=== PATIENT | female | born 2000 | race Caucasian/White ===

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

== ENCOUNTER 2019-04-06 05:05 | Inpatient (IN) | payer MEDICAID, SELFPAY ==
[2019-04-06 05:44] VITALS: BMI 40.1
[2019-04-06 06:29] LABS: Absolute Lymphocyte Count 1.74 X10^3/uL (0.83-4.51); Absolute Neutrophil Count 15.5 X10^3/uL (2.0-7.7); Basophil# 0.05 X10^3/uL; Basophil% 0.3 % (0-1); Eosinophil# 0.11 X10^3/uL; Eosinophils% 0.6 % (0-5); Hematocrit 36.3 % (37-47); Hemoglobin 12.3 g/dL (12.0-15.0); Lymphocyte # 1.74 X10^3/ul (4.0); Lymphocyte % 9.3 % (19-41); Mean Corp Hgb Conc 33.9 g/dL (32-36); Mean Corpuscular Hgb 30.8 pg (27.0-32.0); Mean Corpuscular Volume 90.8 fL (81-99); Monocyte# 1.22 X10^3/uL; Monocyte% 6.5 % (0-10); NRBC Flagged by Analyzer 0 % (0-5); Neutrophil # 15.48 X10^3/uL (2.7-7.7); Neutrophil % 82.7 % (47-70); Platelet Count 241 K/mm3 (150-450); RBC Distribution Width CV 12.6 % (11.6-14.6); RBC Distribution Width SD 41.4 fl (35.1-43.9); White Blood Count 18.7 K/mm3 (4.4-11.0)
[2019-04-06] MEDS: Lactated Ringers 1,000 ML 200 ML IV (11:30)
[2019-04-06] MEDS: Lactated Ringers 500 ML 999 ML IV (11:32)
[2019-04-06 11:51] LABS: Amphetamine Urine VISTA NEGATIVE (<1000 ng/mL); Barbiturate Urine VISTA NEGATIVE (< 200 ng/mL); Benzodiazepine Urine VISTA NEGATIVE (< 200 ng/mL); Cocaine Urine VISTA NEGATIVE (< 300 ng/mL); Ecstacy Urine VISTA NEGATIVE (< 500 ng/mL); Methadone Urine VISTA NEGATIVE (< 300 ng/mL); PCP Urine VISTA NEGATIVE (< 25 ng/mL); THC Urine VISTA POSITIVE (< 50 ng/mL); Vista UDS pH Range 6
[2019-04-06] MEDS: fentaNYL-bupivacaine (epidural) 100 ML BAG EPIDURAL (12:15)
--- NOTE | 2019-04-06 13:53 | PCM.HP.OB ---
History Date of Admission: 04/06/19 Final VALENCIA: 04/11/19 Final VALENCIA Source: US <20 weeks Gestational age: 39 Weeks and 2 Days History of this : This is a 18 year-old, 1 para 0 at 39 2/7-week gestation with EDC of 04/11/2019 presented in labor. Her labor progressed normally. She denied any gross vaginal bleeding or leaking fluid. She had good movement. History of asthma, history of and avoids use during the . Medical History: Medical History (Last Reviewed 02/15/18 @ 08:26 by Sulma Garza) Asthma J45.909 Neck pain M54.2 Allergies No Known Allergies Allergy (Verified 04/06/19 06:12) Home Medications: Home Medications Vits [Prenatabs FA] 1 tab PO DAILY 04/06/19 Smoking Status: Former smoker Alcohol: None Substance Use Type: Marijuana Number of Fetus(es): 1 History Past Pregnancies: Past Pregnancies Delivery Date Name GA/Weeks Outcome Route Weight Gender Labor Length Anesthesia Delivery Location Provider FOB Expected Delivery Method: Spontaneous Vaginal Review of Systems Constitutional: Denies: Chills, Fever Eyes: Reports: Pain - w/ ctxs. Denies: Blurred vision Cardiovascular: Reports: Edema - 1+ Respiratory: Denies: Cough Genitourinary: Denies: Dysuria, Frequency Skin: Denies: Rash Physical Exam General: Alert, Cooperative, - - moderate distress due to pain of ctxs Cardiovascular: Regular rate Lungs: Normal air movement Abdomen: Soft, Non-Distended, Gravid, Appropriate for Gestational Age Extremities:: Other - 2+ edema STUDIO COORDINATOR: Normal external genitalia Estimated gestational size: Appropriate for gestational size Presentation: Cephalic Assessment/Plan All Active Problems (Last Reviewed 02/15/18 @ 08:26 by Sulma Garza) Bronchitis (Acute) This is a 18 year-old, 1 para 0 at 39-2/7 weeks gestation with spontaneous labor. Estimated weight is less than 5000 g by equal exam, pelvis clinically adequate to expect vaginal delivery. May have epidural nitrous oxide or Nubain as needed and indicated for pain control. Continue expectant management for vaginal delivery.
[2019-04-06] MEDS: Oxytocin 30 units/NS 500 ml 30 UNITS/500 ML IV.SOLN 334 UNITS IV (17:01)
--- NOTE | 2019-04-06 18:43 | PCM.OPRPT ---
Vaginal Delivery Maternal Presentation: Active Labor Amniotic Membrane Rupture Type: Artificial Amniotic Fluid Description: Clear Final VALENCIA: 04/11/19 Gestational age: 39 Weeks and 2 Days Date of Procedure: 04/06/19 Pre-Operative Diagnosis: 9-week , maternal exhaustion, persistent L OT position Post-Operative Diagnosis: Pain Surgery/ Procedure Performed: Vacuum Assisted Vaginal Delivery Anesthesiologist: Mati Nava Type of Anesthesia: Epidural Description of Procedure: Patient arrived in active labor. She progressed to an anterior lip where she remained for a couple of hours. She got her epidural, then progressed to complete. She was pushing for approximately 2 hours and becoming very frustrated and tired. Position was our OT. At that point I discussed with the patient and her partner risk benefits and alternatives to a trial of vacuum assisted vaginal delivery. The vacuum was placed on the flexion point in the pressure was created to 550 mmHg. I pulled with 3 contractions, no pop offs. The head did not restituted to BRIANNA but restituted to OP. On the third contraction, as the head began to crown, the vacuum was removed and there were no pop offs. The head then delivered on the next maternal push OT. The remainder the delivered in less than 15 seconds with minimal traction maternal pushing efforts. The Pitocin infusion was initiated for active management of the third stage. The cord was clamped and cut after 1 minute. The infant was attended to by the waiting nursing staff. The placenta was delivered spontaneously and intact. The cervix and vagina were intact. The second-degree perineal laceration was repaired with 3-0 Vicryl suture in a running standard fashion. Sponge and needle counts were correct. A vaginal sweep was completed by me. Placental Delivery Description: Spontaneous Placenta Disposition: [facility] Cord Vessel Description: 3 Vessels Cord Gases drawn per routine: ABG, VBG Cord Entanglement: None Drain: Davis to straight drain Estimated Blood Loss: 500 Infant A gender: Male (1 minute): 8 - Hemanth (5 minute): 9 Episiotomy Description: None Laceration: 2nd degree - perineal Medications given after delivery: IV Pitocin Complications: None
[2019-04-06] MEDS: Naproxen 250 MG Tablet 500 MG PO (21:04)
[2019-04-06 23:34] VITALS: BP 131/72; PULSE 80; RESP 16; TEMP 36.8
[2019-04-07 04:15] VITALS: BP 129/78; PULSE 80; RESP 18; TEMP 36.6
[2019-04-07 05:46] LABS: Hematocrit 31.7 % (37-47); Hemoglobin 10.6 g/dL (12.0-15.0); Mean Corp Hgb Conc 33.4 g/dL (32-36); Mean Corpuscular Hgb 30.8 pg (27.0-32.0); Mean Corpuscular Volume 92.2 fL (81-99); Mean Platelet Vol. 10.6 fl (6.2-12.0); Platelet Count 201 K/mm3 (150-450); RBC Distribution Width CV 13.2 % (11.6-14.6); RBC Distribution Width SD 44.2 fl (35.1-43.9); Red Blood Count 3.44 M/mm3 (4.2-5.4); White Blood Count 22.4 K/mm3 (4.4-11.0)
[2019-04-07] MEDS: Acetaminophen 500 MG Tablet 1000 MG PO ×2 (05:46→16:02)
[2019-04-07 09:30] VITALS: BP 130/75; PULSE 85; RESP 16; TEMP 36.6; O2SAT 9
[2019-04-07] MEDS: Naproxen 250 MG Tablet 500 MG PO ×2 (10:02→19:47)
[2019-04-07 13:00] VITALS: BP 128/78; PULSE 68; RESP 16; TEMP 36.6
[2019-04-07 17:00] VITALS: BP 126/72; PULSE 68; RESP 18; TEMP 36.5
--- NOTE | 2019-04-07 18:23 | CASEMGMT ---
Social Work Referral Date: 04/07/19 Date of Assessment: 04/07/19 Reason for Consult: Mother of baby (MOB) with THC usage during , teen mom, resources. Informant: Dr. Galvan Personal Status Mentation: A&Ox3 Present during assessment: MOB, Father of baby (FOB), and Hx : 1 Hx Para: 0 Infant Gender: Male Infant Name: Hemanth Castañeda (1min): 8 (5min): 9 Care: Adequate Alleged father: Vidal castañeda Alleged father involved: Yes Length of Relationship with alleged father of baby: 4 years FOB Mental Health/AOD/Domestic Violence Hx: FOB smokes tobacco daily and is aware of risk for SIDS when smoking around . FOB stating to only smoke outside. FOB Employment: [employer] - Full-time Number of Children in the home: This if first infant for both MOB and FOB. Living Arrangements: MOB and FOB live with FOB's parents. Infant to live with MOB and FOB as well. Education: High School, working on business degree. Employment: Unemployed. Family Dynamics/Relationships: MOB reporting positive relationships and no concerns of safety (this question was asked while FOB was out of the room). MOB identifying family and FOB as supportive and able to assist with infant care if needed. Transportation: No concerns Substance Abuse Hx and Current Pattern of Use MOB stating to have a history of smoking tobacco but no current usage. MOB stating to have used THC during to assist with nausea. Patient stating that last usage was around 23-24 weeks . MOB denies any other THC use prior to stating that during was the first and only time that MOB used THC. MOB stating intention to no longer use THC. Exploring safety plan for infant if MOB would choose to use THC, MOB stating would not do around him, but I am not going to use. MOB with positive THC on 04/06/19. with pending meconium. Urine was not obtained for . MOB educated on Children services referral due to positive THC and what pending meconium means. MOB voicing understanding of why referral is to be made with possible follow up from children services. MOB denies any other substance abuse including alcohol, methamphetamine, cocaine, heroin, and prescription drugs. Mental Health Hx and Current Status MOB denies any mental health history. MOB stating to have lost MOB's mother 2 years ago from an overdose. MOB stating to be coping well with this and to have support from family and friends. MOB identifying MOB's sister as a big support. Items/Skills List for Infants Care Supplies: MOB stating to have all needed supplies, crib, car seat, infant clothing, etc. Bonding With Infant: MOB planning to breast feed and is stating to have a connection with . MOB stating that breast feeding is going well. Observed Maternal/Paternal Child interaction: MOB and FOB both holding infant during assessment. This social media campaign manager was able to witness MOB/FOB transferring to each others arms. Infant head and body supported appropriately. Emotional Assessment: MOB presenting with a positive affect. MOB engaged in conversation as seen through MOB asking questions and making eye contact with this social media campaign manager. Resources: MOB reporting to be connected with WIC and Job and Family services for insurance. Denies any other active resources. Provided MOB with information on Help Me Grow, Community resources, Safe Sleeping, depression. Was able to have conversation with MOB about depression signs/symptoms, MOB receptive to information. MOB declining [facility] referral but accepting of information and how to make a self referral. Telephone call to [facility] ([facility]), Yolande Escobedo. Referral provided. Yolande updated on positive THC tox as well as supportive factors for MOB. Yolande stating that case will be reviewed but no further actions are indicated at this time. Yolande aware that social work will contact [facility] with meconium results if positive for any substances. Intervention: CS referral. Pending meconium, will make further referrals as indicated. Plan: to discharge to home with FOB and MOB. BALDEMAR Germain
[2019-04-07 20:00] VITALS: BP 139/81; PULSE 84; RESP 16; TEMP 37
[2019-04-08 02:30] VITALS: BP 126/64; PULSE 57; RESP 18; TEMP 36.2
[2019-04-08] MEDS: Acetaminophen 500 MG Tablet 1000 MG PO ×2 (02:47→11:27)
[2019-04-08] MEDS: Naproxen 250 MG Tablet 500 MG PO (04:09)
--- NOTE | 2019-04-08 10:06 | PCM.PN.OB ---
Subjective: Pain well controlled, average lochia. - Physical Exam General: Alert, Cooperative, No apparent distress Vital Signs Temp Pulse Resp BP Pulse Ox 97.1 F L 57 L 18 126/64 H 9 04/08/19 02:30 04/08/19 02:30 04/08/19 02:30 04/08/19 02:30 04/07/19 09:30 Oxygen Delivery Method Room Air Weight: 96.5 kg Body Mass Index (BMI) 40.1 Intake and Output for Last 24 Hours 04/06/19 04/07/19 04/08/19 23:59 23:59 23:59 Intake Total 1992.34 / 34 Output Total 700 / 700 400 / 400 Balance 1293.34 / 1293.34 -400 / -400 Medical Necessity - Tobacco Use Smoking Status: Former smoker Assessment/Plan All Active Problems (Last Reviewed 02/15/18 @ 08:26 by Sulma Garza) Bronchitis (Acute) day #2 status post vaginal delivery. patient are doing well. I did see the patient yesterday and she was doing well and was to continue with routine care. I see that I did this entering a note on her chart yesterday, but she was doing well and was seen by me. Discharge home today with routine instructions and follow-up
--- NOTE | 2019-04-08 10:08 | DCINST_ITS ---
Discharge Diet: No Restrictions Discharge Activity: Return to Normal Activity, May not drive while taking narcotic pain medications., May Shower May resume sexual activity in: 4-6 weeks Additional Activity Instructions:: Nothing in the vagina for 4-6 weeks. You may return to work/school in 6 weeks. Call your doctor if your incision/area has: Continuous Slow Oozing, Sudden Increased Bleeding, Increased Pain/ Swelling, Increased Redness, Foul Smelling Discharge Additional Instructions: If you experience any of the following, contact your healthcare provider. * Bleeding that soaks a pad every hour for 2 hours * Fever 100.4 or higher * Unrelieved incision or abdominal pain * Swelling, redness, discharge or bleeding from your incision or episiotomy site * Your incision begins to separate * Problems urinating (including inability to urinate or burning while urinating). * Visual changes * Severe headache * Flu-like symptoms * Pain or redness in one of both of your breasts * Pain, warmth, tenderness or swelling in your legs, especially the calf area * Frequent nausea and vomiting * Symptoms of depression or anxiety If you experience any of the following, call 911 or go to the nearest Emergency Room. * Chest pain * Problems breathing * Seizure activity * Partial or complete paralysis of a body part, slurred speech, weakness or drooping of the face, or a sudden inability to walk or hold your balance Allergies/Adverse Reactions: Allergies No Known Allergies Allergy (Verified 04/06/19 06:12) Medications to take at Discharge Vits [Prenatabs FA ] 1 tab PO DAILY 04/06/19 Docusate Sodium [Colace] 100 mg PO BID PRN PRN #60 cap 04/08/19 Ibuprofen [Motrin] 800 mg PO TID PRN PRN #60 tab 04/08/19 The following prescriptions were given: Docusate Sodium [Colace] 100 mg PO BID PRN PRN #60 cap PRN Reason: Constipation Transmission Status: Pending to [id number] Ibuprofen [Motrin] 800 mg PO TID PRN PRN #60 tab PRN Reason: Pain Transmission Status: Pending to [id number] Please Follow Up With: Sheryl Burton MD - [phone] When: Call to make an appointment in our office in 1-2 in 6 weeks or as needed. Primary Care Physician: Maira Benitez MD [Primary Care Provider] - Test Results: Test results from this visit will be discussed in further detail at your follow- up appointment, if applicable.
[2019-04-08 10:25] VITALS: BP 119/76; PULSE 71; RESP 16; TEMP 36.7; O2SAT 98
== END 2019-04-08 12:40 | disposition home or self-care (01) | DRG 560 ==
PROVIDERS: Obstetrics & Gynecology; Admitting Provider Obstetrics & Gynecology; Family Provider Pediatrics; PCP Pediatrics; Visit Provider Obstetrics & Gynecology
DX: O75.81 Maternal exhaustion complicating labor and delivery (principal); O70.1 Second degree perineal laceration during delivery; O99.52 Diseases of the respiratory system complicating childbirth; J45.909 Unspecified asthma, uncomplicated; Z37.0 Single live birth; Z3A.39 39 weeks gestation of pregnancy; Z87.891 Personal history of nicotine dependence
CPT/HCPCS: 59025; 59050; 80307; 85025; 85027; 86850; 86900; 86901; 99218; J7120; G0378

== ENCOUNTER 2020-01-08 15:36 | Emergency (ER) | payer MEDICAID, SELFPAY ==
[2020-01-08 15:37] VITALS: BP 133/76; PULSE 86; RESP 17; TEMP 36.4; O2SAT 97; BMI 30.1
--- NOTE | 2020-01-08 15:53 | NURSING ---
NO OLD EKGS
--- NOTE | 2020-01-08 15:55 | EKG12_ITS ---
Test Reason : CP Blood Pressure : / mmHG Vent. Rate : 076 BPM Atrial Rate : 076 BPM P-R Int : 142 ms QRS Dur : 094 ms QT Int : 356 ms P-R-T Axes : 047 043 023 degrees QTc Int : 400 ms Normal sinus rhythm with sinus arrhythmia Normal ECG Confirmed by MELISSA DIAMOND ([id number]), brands editor EDDIE DÍAZ ([id number]) on 01/15/2020 8:12:36 AM Referred By: Confirmed By:MELISSA DIAMOND
--- NOTE | 2020-01-08 15:58 | ED.VIS.GEN ---
History of Present Illness Chief Complaint: Chest Pain Informant: Patient Onset: Yesterday Context: Gradual Onset Timing: Continuous Current Severity: Moderate Maximum Severity: Moderate Narrative: The patient is an otherwise healthy 19-year-old female that presents to the emergency department with left chest pain with inspiration. Patient was in her normal state of health. She states that she began to have a sharp, stabbing pain in her chest when she takes deep breath or when she coughs. She denies any fevers or chills. She denies any leg swelling. She has no history of pulmonary embolus. There is no family history of coagulopathies. She states she is otherwise been in her normal state of health. Prior similar symptoms: No Recent Illness/Hospitalization: No Past Medical History - Allergies and Home Meds Allergies/Adverse Reactions: Allergies No Known Allergies Allergy (Verified 01/08/20 15:36) Primary Care Physician: Maira Benitez MD [STAFF PHYSICIAN] - Prior records reviewed: Yes Past Medical History: None Surgical History: no surgical history Smoking Status: Never smoker Review of Systems General: Denies: Chills, Fever, Sweats Eyes: Denies: Visual changes - bilaterally, Diplopia ENT: Denies: Rhinorrhea, Sore throat Cardiovascular: Reports: Chest pain. Denies: Palpitations Respiratory: Denies: Dyspnea, Cough, Dyspnea on exertion Gastrointestinal: Denies: Abdominal pain, Nausea, Vomiting, Diarrhea, Melena, Hematochezia Genitourinary: Denies: Dysuria, Hematuria, Frequency Musculoskeletal: Denies: Back pain, Extremity Pain Skin: Denies: Rash, Wounds Neurological: Denies: Headache, Weakness, Numbness Physical Exam Vital Signs/Narrative: Vital Signs Temp Pulse Resp BP Pulse Ox 01/08/20 15:37 97.6 F L 86 17 133/76 H 97 Inital Vital Signs reviewed: Yes General: Well nourished, Well developed, No Acute Distress Head: Normocephalic, Atraumatic Eyes: Perrl, EOMI ENT: Moist mucous membranes, No rhinorrhea Neck: Supple, Nontender Cardiovascular: Regular rate, Regular rhythm, No murmurs Respiratory: No distress, CTA bilaterally, Chest nontender Abdomen: Soft, Nontender, Nondistended, Normal bowel sounds Back: Nontender, Normal Inspection Extremities: Nontender, No edema Skin: Normal color, No rash Neurological: Alert, Oriented x3, Cranial nerves II-XII grossly intact, Normal Strength, Normal Sensation Psychological: Normal affect, Normal Mood Diagnostic/Tx/Re-eval Clinical Impression(s) from Imaging Studies Chest X-Ray 01/08/20 16:20 IMPRESSION: Normal x-ray examination of the chest. Electronically Signed: Sami Sigala MD at 16:46 EDT , Service support , Abnormal Lab Results 01/08/20 01/08/20 01/08/20 16:05 16:05 16:05 WBC 9.7 RBC 4.56 Hgb 14.2 Hct 41.4 MCV 90.8 MCH 31.1 MCHC 34.3 RDW Std Deviation 40.1 RDW Coeff of Jamilah 12.1 Plt Count 255 MPV 10.3 Immature Gran % (Auto) 0.300 Neut % (Auto) 68.2 Lymph % (Auto) 20.4 [place] % (Auto) 8.8 Eos % (Auto) 2.0 Baso % (Auto) 0.3 Absolute Neuts (auto) 6.6 Absolute Lymphs (auto) 1.98 Nucleated RBC % 0 D-Dimer Quant (PE/DVT) < 0.27 L Sodium 138 Potassium 3.5 Chloride 103 Carbon Dioxide 30.0 Anion Gap 5 BUN 8 Creatinine 0.73 Estim Creat Clear Calc 92.76 Est GFR (MDRD) Af Amer 131 Est GFR (MDRD) Non-Af 108 BUN/Creatinine Ratio 11.0 Glucose 101 Calcium 9.0 Troponin I < 0.015 - Rhythm Strip Rhythm Strip: Sinus Rhythm Rate: 80 Ectopy: None - EKG Initial EKG Interpretation: Sinus Rhythm, No Acute Injury Pattern Prior: No Prior - Medical Decision Making Patient presents to the emergency department with approximately 24 hours of left-sided pleuritic chest pain. She is not hypoxic or tachypneic. However, given her symptoms EKG and d-dimer were obtained. D-dimer was negative. EKG was sinus rhythm without acute ischemia. Chest x-ray shows no evidence of volume overload, pneumothorax, other dangerous process. Patient was treated with Toradol and fluids and is feeling markedly improved. At this point, I do feel that she is safe for outpatient follow-up. I do suspect that her pain is likely secondary to pleurisy versus costochondritis. She is comfortable with this plan of care and will be discharged home. Impression 1. Pleurisy ED Disposition - Plan for ED Patient: Instructions: ED Chest Pain Pleurisy Prescriptions: Naproxen [Naprosyn] 500 mg PO BID PRN #20 tab Prescription Printed Referrals: Maira Benitez MD [STAFF PHYSICIAN] -
[2020-01-08] MEDS: 0.9% Normal Saline 1,000 ML 1000 ML IV (16:10)
[2020-01-08] MEDS: Ketorolac 15 MG/ML Vial IV (16:13)
--- NOTE | 2020-01-08 16:20 | RAD_ITS ---
STUDY: X-RAY CHEST REASON FOR EXAM: Female, 19 years old. Chest pain no trauma TECHNIQUE: PA and lateral COMPARISON: None. FINDINGS: The lungs are clear and expanded. There is no demonstrated pleural abnormality. Normal size heart. Normal mediastinum and carroll. Normal visualized pulmonary arteries. Normal visualized aortic arch and descending thoracic aorta. Normal visualized thoracic spine. Normal visualized ribs, clavicles, and shoulders. There is no demonstrated abnormality of the visualized soft tissue structures of the upper abdomen. RAD/Chest PA and Lateral IMPRESSION: Normal x-ray examination of the chest. Electronically Signed: Sami Sigala MD at 16:46 EDT , Service support ,
[2020-01-08 16:22] LABS: Absolute Lymphocyte Count 1.98 X10^3/uL (0.83-4.51); Absolute Neutrophil Count 6.6 X10^3/uL (2.0-7.7); Basophil# 0.03 X10^3/uL; Basophil% 0.3 % (0-1); Eosinophil# 0.19 X10^3/uL; Hematocrit 41.4 % (37-47); Hemoglobin 14.2 g/dL (12.0-15.0); Lymphocyte # 1.98 X10^3/ul (4.0); Lymphocyte % 20.4 % (19-41); Mean Corp Hgb Conc 34.3 g/dL (32-36); Mean Corpuscular Hgb 31.1 pg (27.0-32.0); Mean Corpuscular Volume 90.8 fL (81-99); Mean Platelet Vol. 10.3 fl (6.2-12.0); Monocyte# 0.85 X10^3/uL; Monocyte% 8.8 % (0-10); NRBC Flagged by Analyzer 0 % (0-5); Neutrophil # 6.61 X10^3/uL (2.7-7.7); Neutrophil % 68.2 % (47-70); Platelet Count 255 K/mm3 (150-450); RBC Distribution Width CV 12.1 % (11.6-14.6); RBC Distribution Width SD 40.1 fl (35.1-43.9); Red Blood Count 4.56 M/mm3 (4.2-5.4); White Blood Count 9.7 K/mm3 (4.4-11.0)
[2020-01-08 16:41] LABS: Anion Gap 5 (5-15); BUN 8 mg/dL (7-18); Chloride 103 mmol/L (98-107); Creatinine, Serum 0.73 mg/dL (0.55-1.02); EST Glomerular Filtration Rate 108 mL/min (>60); Est Glom Filt Rate - Afr Amer 131 mL/min (>60); Estimated Creatinine Clearance 92.76 ml/min; Glucose 101 mg/dL (74-106); Potassium 3.5 mmol/L (3.5-5.1); Sodium Level 138 mmol/L (136-145)
[2020-01-08 17:05] LABS: D-Dimer Quantitative (DVT/PE) < 0.27 FEU/ug/m (0.27-0.49)
== END 2020-01-08 17:37 | disposition home or self-care (01) ==
LOC: ED 16:32
PROVIDERS: Emergency Provider Emergency Medicine
DX: R09.1 Pleurisy (principal)
CPT/HCPCS: 71046; 80048; 84484; 85025; 85379; 93005; 96361; 96374; 99284; J7030; A4216

== ENCOUNTER 2021-03-26 12:45 | Inpatient (IN) | payer MEDICAID, SELFPAY ==
[2021-03-26] VITALS (19 sets, daily range): BP systolic 119–162; BP diastolic 71–87; PULSE 60–93; RESP 16; TEMP 35.6–36.4; O2SAT 82–99; BMI 39.2
[2021-03-26] MEDS: Lactated Ringers 1,000 ML 50 ML IV (12:55)
--- NOTE | 2021-03-26 13:00 | PCM.HP.OB ---
HPI - General General Date of Admission: 03/26/21 HPI Narrative WELLINGTON ELIZABETH, is a 20 F who presents at 37w6d with contractions that started this morning and increased in frequency. Maternal Data Information VALENCIA Calculator Estimated Delivery Date Method Current WG Current Estimate 04/10/21 LMP (Certain) 37w 6d PFSH PFSH Medical History (Updated 03/26/21 @ 16:34 by Alona Maciel CNM) Asthma Neck pain Home Medications vit,[id number] 1 tab PO DAILY 04/06/19 [History Last Taken 03/25/21 1300] Allergy/AdvReac Type Severity Reaction Status Date / Time dextromethorphan AdvReac Other Verified 03/26/21 13:15 [From Dimetapp Cold-Congestion] diphenhydramine AdvReac Other Verified 03/26/21 13:15 [From Dimetapp Cold-Congestion] guaifenesin AdvReac Other Verified 03/26/21 13:15 [From Dimetapp Cold-Congestion] phenylephrine AdvReac Other Verified 03/26/21 13:15 [From Dimetapp Cold-Congestion] pseudoephedrine AdvReac Other Verified 03/26/21 13:15 [From Dimetapp Cold-Congestion] Family History Mother Overdose Surgical History (Updated 03/26/21 @ 16:34 by Alona Maciel CNM) H/O wisdom tooth extraction Social History household members: family housing: house number of children: 1 current occupational status: student current occupation: homemaker/student- finishing up BA in business pets and animals: Yes Smoking Status: Former smoker second hand exposure: Yes alcohol intake: never substance use type: former substance user Date of last use: 2018- marijuana seatbelt use: always do you feel safe at home: Yes additional social history: Inna romero History 2 Elective abortions Hx Para 1 Spontaneous abortions Hx # Term Pregnancies Ectopic pregnancies Hx # Pregnancies Multiple births # of living children 1 Past Pregnancies Del. Date Name GA/Weeks Outcome Route Bth Weight Gen Labor Lgth Anesthesia Del Locatn Provider FOB 04/06/19 Hemanth 39 live - full term vacuum 7lbs 7oz Male epidural H RR Mamadou Delivery Date: 04/06/19 VAVD- maternal exhaustion persistent L OT position; 2nd degree laceration Sulma Alberts Vital Signs Vital Signs Vital Signs: 03/26/21 12:50 03/26/21 13:01 03/26/21 13:02 Pulse Rate 63 72 70 Blood Pressure 119/80 BP Systolic 119 BP Diastolic 80 Pulse Ox 98 98 03/26/21 13:03 03/26/21 14:05 Pulse Rate 62 Blood Pressure 143/87 H BP Systolic 143 BP Diastolic 87 Pulse Ox 82 Weight Weight: 207 lb 7.28 oz Body Mass Index (BMI) 39.2 Physical Exam Narrative /-1 IBOW Const alert and oriented x3 HEENT normocephalic Labs Labs Labs: Blood Type O POSITIVE Antibody Screen NEGATIVE Hct 37.4 % (37-47) Hgb 12.6 g/dL (12.0-15.0) Rhogam given: No GBS negative RPR non reactive HIV negative HBsAG negative HepC negative urine tox screen positive marijuana on 03/13/21 GBS negative 1hr GCT negative Rubella immune Assessment & Plan (1) Active labor at term: (2) Marijuana use: (3) History of vacuum extraction assisted delivery: PLAN: 1) Admit to labor and delivery 2) Routine labs, covid screening 3) continuous EFM 4) Would like unmedicated 5) GBS negative 6) collaborative physician and notified of patient admission. Anticipate vaginal delivery soon.
[2021-03-26 13:19] LABS: Absolute Lymphocyte Count 1.58 X10^3/uL (0.83-4.51); Absolute Neutrophil Count 10.4 X10^3/uL (2.0-7.7); Basophil# 0.03 X10^3/uL; Basophil% 0.2 % (0-1); Eosinophil# 0.11 X10^3/uL; Eosinophils% 0.8 % (0-5); Hematocrit 37.4 % (37-47); Hemoglobin 12.6 g/dL (12.0-15.0); Lymphocyte # 1.58 X10^3/ul (0.83-4.51); Lymphocyte % 11.6 % (19-41); Mean Corp Hgb Conc 33.7 g/dL (32-36); Mean Corpuscular Hgb 30.9 pg (27.0-32.0); Mean Corpuscular Volume 91.7 fL (81-99); Mean Platelet Vol. 10.1 fl (6.2-12.0); Monocyte# 1.37 X10^3/uL; Monocyte% 10.1 % (0-10); NRBC Flagged by Analyzer 0 % (0-5); Neutrophil # 10.44 X10^3/uL (2.7-7.7); Neutrophil % 76.9 % (47-70); Platelet Count 331 K/mm3 (150-450); RBC Distribution Width CV 12.4 % (11.6-14.6); RBC Distribution Width SD 41.3 fl (35.1-43.9); Red Blood Count 4.08 M/mm3 (4.2-5.4); White Blood Count 13.6 K/mm3 (4.4-11.0)
[2021-03-26] MEDS: Oxytocin 30 units/NS 500 ml 30 UNITS/500 ML IV.SOLN 334 UNITS IV (13:57)
--- NOTE | 2021-03-26 14:31 | EX.PCM.OBRPT ---
Maternal Data Information VALENCIA Calculator Estimated Delivery Date Method Current WG Current Estimate 04/10/21 LMP (Certain) 37w 6d Vaginal Delivery Maternal Presentation Maternal Presentation: Active Labor Operative Information Date of Procedure: 03/26/21 Pre-Operative Diagnosis: Active labor at term Post-Operative Diagnosis: Surgery / Procedure Performed: Spontaneous Vaginal Delivery Type of Anesthesia: Local with 1% Lidocaine Estimated Blood Loss: 350 ml Time of Delivery: 13:56 Findings Description of Procedure: Progressed to complete with strong urge to push, unmedicated. of viable female over first degree perineal laceration and left labial laceration. Infant head delivered with body immediately forthcoming, CANx1, delivered through. placed on maternal abdomen, strong cry. Mouth and nares suctioned for secretion. Pitocin started for active 3rd stage management. Placenta delivered intact via liv, 3 vessel cord. Perineum inspected and revealed first degree perineal laceration and left labial laceration, repaired with lidocaine and 3.0vicryl rapide. Vaginal sweep completed, sponge and instrument count correct. Mom and baby stable, family bonding well. notified of delivery. Presentation: Vertex Amniotic Membrane Rupture Type: Artificial Amniotic Fluid Description: Clear Placental Delivery Description: Spontaneous Placenta Disposition: [facility] Cord Vessel Description: 3 Vessels Cord Entanglement: Around neck x 1, loose Nuchal Cord Compression: Without compression A Gender: Female Delayed Cord Clamping: Yes Post Vaginal Delivery Medications Given After Delivery: IV Pitocin Episiotomy Description: None Laceration: Perineal Extension/lac and 1st degree (left labial) Complication Complications: None
[2021-03-26] MEDS: Benzocaine/Lanolin/Aloe Vera 1 SPRAY EACH TOPICAL (15:57)
[2021-03-26] MEDS: Ibuprofen 600 MG Tablet PO (15:58)
[2021-03-26 17:01] LABS: Amphetamine Urine VISTA NEGATIVE (<1000 ng/mL); Barbiturate Urine VISTA NEGATIVE (< 200 ng/mL); Benzodiazepine Urine VISTA NEGATIVE (< 200 ng/mL); Cocaine Urine VISTA NEGATIVE (< 300 ng/mL); Ecstacy Urine VISTA NEGATIVE (< 500 ng/mL); Methadone Urine VISTA NEGATIVE (< 300 ng/mL); PCP Urine VISTA NEGATIVE (< 25 ng/mL); THC Urine VISTA POSITIVE (< 50 ng/mL); Vista UDS pH Range 7
[2021-03-26] MEDS: Acetaminophen 500 MG Tablet PO (19:38)
[2021-03-27 00:10] VITALS: BP 128/80; PULSE 71; RESP 16; TEMP 36.2; O2SAT 97
[2021-03-27] MEDS: Ibuprofen 600 MG Tablet PO (00:35)
[2021-03-27 04:30] VITALS: BP 112/60; PULSE 74; RESP 16; TEMP 36.4; O2SAT 97
[2021-03-27] MEDS: Acetaminophen 500 MG Tablet PO (06:23)
[2021-03-27 06:24] LABS: Hemoglobin 12.3 g/dL (12.0-15.0); Mean Corp Hgb Conc 33.2 g/dL (32-36); Mean Corpuscular Hgb 31.1 pg (27.0-32.0); Mean Corpuscular Volume 93.4 fL (81-99); Mean Platelet Vol. 9.9 fl (6.2-12.0); Platelet Count 343 K/mm3 (150-450); RBC Distribution Width CV 12.7 % (11.6-14.6); RBC Distribution Width SD 43.5 fl (35.1-43.9); Red Blood Count 3.96 M/mm3 (4.2-5.4); White Blood Count 22.4 K/mm3 (4.4-11.0)
--- NOTE | 2021-03-27 06:42 | PN.OBGYN_ITS ---
Subjective Subjective Doing well per patient and nursing staff. Ambulating and taking PO without difficulty. Voiding and passing flatus. Pain controlled. , services for assistance. Denies headache, visual changes, chest pain, shortness of breath, leg pain or increased bleeding. Lochia normal. Objective Data Objective Data Vital Signs: Vital Signs Temp Pulse Resp BP Pulse Ox 97.6 F L 74 16 112/60 97 03/27/21 04:30 03/27/21 04:30 03/27/21 04:30 03/27/21 04:30 03/27/21 04:30 Oxygen Delivery Method Room Air Weight: 207 lb 7.28 oz Body Mass Index (BMI) 39.2 Intake & Output: Intake and Output for Last 24 Hours 03/25/21 03/26/21 03/27/21 23:59 23:59 23:59 Intake Total 554.17 / 554.17 Output Total 450 / 450 Balance 104.17 / 104.17 Lab / Micro Data Result Diagrams: 03/27/21 06:18 Labs: Laboratory Results - last 24 hr 03/26/21 12:55: WBC 13.6 H, RBC 4.08 L, Hgb 12.6, Hct 37.4, MCV 91.7, MCH 30.9, MCHC 33.7, RDW Std Deviation 41.3, RDW Coeff of Jamilah 12.4, Plt Count 331, MPV 10.1, Immature Gran % (Auto) 0.400, Neut % (Auto) 76.9 H, Lymph % (Auto) 11.6 L, [place] % (Auto) 10.1 H, Eos % (Auto) 0.8, Baso % (Auto) 0.2, Absolute Neuts (auto) 10.4 H, Absolute Lymphs (auto) 1.58, Nucleated RBC % 0 03/26/21 12:55: Blood Type O POSITIVE, Antibody Screen NEGATIVE 03/26/21 16:00: Urine Opiates Screen NEGATIVE, Urine Methadone Screen NEGATIVE, Ur Barbiturates Screen NEGATIVE, Ur Phencyclidine Scrn NEGATIVE, Ur Amphetamines Screen NEGATIVE, U Methamphetamin-MDMA NEGATIVE, U Benzodiazepines Scrn NEGATIVE, Urine Cocaine Screen NEGATIVE, U Cannabinoids Screen POSITIVE H, Ur Drug Screen Comment 03/27/21 06:18: WBC 22.4 H, RBC 3.96 L, Hgb 12.3, Hct 37.0, MCV 93.4, MCH 31.1, MCHC 33.2, RDW Std Deviation 43.5, RDW Coeff of Jamilah 12.7, Plt Count 343, MPV 9.9 Micro: Microbiology 03/26/21 12:55 Nasal Secretion SARS-CoV-2 Antigen (Rapid) - Final ROS Constitutional Constitutional: Reports systems reviewed and no addt'l complaints, except as documented; Denies headache(s) Eyes Eyes: Denies acute decrease in peripheral vision, blurry vision or change in vision ENT HEENT: Reports systems reviewed and no addt'l complaints, except as documented Cardiovascular Cardiovascular: Denies chest pain or dizziness Respiratory/Chest Respiratory/Chest: Denies cough, dyspnea, dyspnea on exertion, shortness of breath at rest or shortness of breath with exertion Gastrointestinal Gastrointestinal: Denies abdominal pain, diarrhea, nausea or vomiting Genitourinary Genitourinary: Denies abdominal discomfort Musculoskeletal Musculoskeletal: Denies limited range of motion Integumentary Integumentary: Reports systems reviewed and no addt'l complaints, except as documented Neurologic Neurologic: Reports systems reviewed and no addt'l complaints, except as documented Psychiatric Psychiatric: Reports systems reviewed and no addt'l complaints, except as documented Endocrine Endocrinology: Reports systems reviewed and no addt'l complaints, except as documented Hematologic/Lymphatic Hematologic/Lymphatic: Reports systems reviewed and no addt'l complaints, except as documented Allergic/Immunologic Allergic/Immunologic: Reports systems reviewed and no addt'l complaints, except as documented Physical Exam Const alert and oriented x3 General Appearance: cooperative Orientation / Consciousness: awake, oriented to person, oriented to place and oriented to time Exam Limitations: no limitations HEENT normocephalic Head and Scalp: normal to inspection, normocephalic and atraumatic Face and Sinus: normal facial exam Eyes General Eye: normal appearance of both eyes Neck full ROM Chest Chest: symmetrical chest wall rise Resp normal respiratory effort and normal air movement Auscultation: clear to auscultation bilaterally Cardio regular rate, regular rhythm, S1 normal heart sound, S2 normal heart sound, no murmurs, no rub, no gallops and no clicks GI normal to inspection, nondistended, normoactive bowel sounds and non-tender GI Narrative: fundus firm 2 below U appearance of the vagina normal Bladder / Kidney Exam: no CVA tenderness Back/Spine normal ROM Extremity normal to inspection and full ROM Skin no rashes or lesions noted Neuro oriented x3, CN's II-XII intact bilaterally and moves all extremities Sensorium / Orientation: awake, alert and oriented to person Motor Exam: clonus absent Deep Tendon Reflexes: Rt Patellar (L4): 2+ and Lt Patellar (L4): 2+ Assessment & Plan (1) Vaginal delivery: PLAN: 1) Routine PP and instructions 2) VS stable 3) Follow up in 2 weeks and 6 weeks 4) D/C home
[2021-03-27 08:00] VITALS: BP 114/74; PULSE 62; RESP 16; TEMP 36.2
--- NOTE | 2021-03-27 08:41 | DS.PCM_ITS ---
Providers Date of Admission: 03/26/21 Primary Care Physician: No Primary Care Phys Reason For Visit: VAGINAL DELIVERY Diagnosis Discharge Diagnosis (1) Vaginal delivery: Status: Acute Code(s): O80 - Encounter for full-term uncomplicated delivery Medications at Discharge Home Medications vit,[id number] 1 tab PO DAILY 04/06/19 acetaminophen 1,000 mg PO Q6H PRN PRN #0 tab 03/27/21 ibuprofen 600 mg PO Q6H PRN PRN #30 tab 03/27/21 Weight / BMI Weight Weight: 207 lb 7.28 oz Body Mass Index (BMI) 39.2 ABG / Lab / Microbiology Data Result Diagrams: 03/27/21 06:18 Laboratory: Laboratory Results - last 24 hr 03/26/21 12:55: WBC 13.6 H, RBC 4.08 L, Hgb 12.6, Hct 37.4, MCV 91.7, MCH 30.9, MCHC 33.7, RDW Std Deviation 41.3, RDW Coeff of Jamilah 12.4, Plt Count 331, MPV 10.1, Immature Gran % (Auto) 0.400, Neut % (Auto) 76.9 H, Lymph % (Auto) 11.6 L, [place] % (Auto) 10.1 H, Eos % (Auto) 0.8, Baso % (Auto) 0.2, Absolute Neuts (auto) 10.4 H, Absolute Lymphs (auto) 1.58, Nucleated RBC % 0 03/26/21 12:55: Blood Type O POSITIVE, Antibody Screen NEGATIVE 03/26/21 16:00: Urine Opiates Screen NEGATIVE, Urine Methadone Screen NEGATIVE, Ur Barbiturates Screen NEGATIVE, Ur Phencyclidine Scrn NEGATIVE, Ur Amphetamines Screen NEGATIVE, U Methamphetamin-MDMA NEGATIVE, U Benzodiazepines Scrn NEGATIVE, Urine Cocaine Screen NEGATIVE, U Cannabinoids Screen POSITIVE H, Ur Drug Screen Comment 03/27/21 06:18: WBC 22.4 H, RBC 3.96 L, Hgb 12.3, Hct 37.0, MCV 93.4, MCH 31.1, MCHC 33.2, RDW Std Deviation 43.5, RDW Coeff of Jamilah 12.7, Plt Count 343, MPV 9.9 Microbiology: Microbiology 03/26/21 12:55 Nasal Secretion SARS-CoV-2 Antigen (Rapid) - Final Meaningful Use Info Meaningful Use Diagnoses (Choose all that apply): None applicable Discharge Plan Admission Admit Date/Time: 03/26/21 12:45 Primary Reason for Your Visit: Active labor, vaginal delivery Attending Provider: Alona Maciel Primary Care Provider: Care Physician,No Primary Instructions Patient Instructions: After a Vaginal , Discharge Orders/Prescriptions Prescriptions: New acetaminophen 500 mg Tablet 1,000 mg PO Q6H PRN PRN (Reason: Pain 1-10 Or Fever) Qty: 0 RF: 0 ibuprofen 600 mg Tablet 600 mg PO Q6H PRN PRN (Reason: Pain Score 1-3) Qty: 30 RF: 0 Continued vit,[id number] 1 TABLET tablet 1 tab PO DAILY RF: 0 Referrals / Follow Up: Care Physician,No Primary [Primary Care Provider] - (2 weeks virtual and 6 weeks in office) Alona Maciel CNM [Certified Nurse Complaint Analyst] - Disposition Disposition (needs filled in before D/C Order can be placed): Home, Self Care
[2021-03-27 12:00] VITALS: BP 132/84; PULSE 93; RESP 16; TEMP 36.1
--- NOTE | 2021-03-27 14:00 | CASEMGMT ---
Social Work Assessment Labor and Delivery Unit Patient Address: [address] [place] [address] [address], [place] [id number] Phone number: [phone] Date of Referral: 03/26/2021 Time of Referral: 1609; 1754 Referred By: Alona Maciel CNM; Dr. Johns Date of Intervention: 03/27/2021 Time of Intervention: 1400 Reason for Referral: Maternal history of THC use, positive upon admission. History obtained from: Medical records and mother of baby (PJ) Ilsa Azar Household composition: MOB reports to live with the FOB and reports home situation is safe and adequate. Also in the home is their older child. Patient's parent/guardian status: PJ is a 20-year-old single female, involved with the father of baby (FOB) Vidal Castañeda (born 02/26/1996) for the last 7 years. PJ denies any safety concerns or domestic violence history in this relationship. MOB and FOB now share 2 children together. Minor children include: Hemanth Castañeda, born 04/06/2019 and baby girl Sneha Castañeda, born 03/26/2021. Medical History: PJ is 2, para 1 now 2 after delivering Sneha care started in the 8-week and regular with the exception of an 8-week care Between 8 and 16 weeks. Delivery occurred at 37 weeks gestation. Infant weighed 6 pounds 10 ounces at . Apgars 9 and 9 at 1 and 5 minutes of life. Educational Status: PJ is finishing a bachelor's in business via an online school program. No issues with reading, writing, or learning. Financial Status: MONY works as a romero. No reported issues with finances. Supplies: PJ reports to have necessary supplies including a bassinet, crib, pack and play, car seat, clothing, diapers, and wipes. MOB is breast-feeding the baby. Childcare/Caregiver(s): MOB will be the primary caregiver along with help from the FOB. Transportation: No reported issues. Programs/Agencies Involved: PJ is active with job and family services for medical. Reports adequate. Declines referral to help me grow. Reports plan for Dr. Hill is the pediatric doctor to follow-up. Children Services/Legal Issues: MOB denies legal issues or child services involvement, past or present.. Behavioral Health Issues: Mental Health History: MOB denies any mental health history including depression, anxiety, or . Substance Use History: MOB endorses history of marijuana use related to nausea. MOB reports the use was a couple of months ago. Reviewed with the MOB her positive drug screen at delivery, and offered MOB opportunity to discuss last use. MOB maintained her use was a few months ago, and believe that due to being overweight is uncertain as to how long marijuana would stay in the MOB system. MOB denies any other illicit substance use history. No reports of any alcohol use during . Family History: Medical record indicates that the MOB mother has a history of drug overdose and subsequent . Drug Screens: MOB with positive drug screens for marijuana on 09/02/2020, 03/13/2021, and 03/26/2021. No urine collected on baby per meconium is pending. Family/Social Stressors: No identified stressors. Support Systems: MOB endorses the FOB, MOB father, [id number], and the sister as good supports. Depression/Shaken Baby/Safe Sleeping: Information provided on shaken baby prevention, safe sleeping, and mood and anxiety disorders. ASSESSMENT: Met with the MOB in her room, introducing to self and social work role. MOB holding the baby during social work visit, appropriate and how handled the baby. There have been no voiced concerns regarding parent-child interactions or bonding. MOB reports to have adequate housing, transportation and supplies for the baby. Denies any mental health concerns. [place] depression screen was completed with the MOB and a score was 1. MOB does endorse history of marijuana use in , but reports its been a couple of months ago. Denies any recent usage even in light of positive drug screen at delivery. Educated MOB to the need to alert children services to infant exposure to substances in utero. Let MOB know that uncertain whether case will be opened at this time, but that if meconium comes back positive a case will be open for investigation and something will be following up. Offered MOB opportunity to ask questions as needed. MOB declines any referrals such as helping grow. Did accept resource information for [facility] and a packet on mood and anxiety disorders. Safe Plan of Care for infant related to substance use: MOB maintains that has not been using marijuana in some time. Reports plan for continued abstinence. Educated MOB to recommendation to not use any substances, especially while breast-feeding. MOB expressed understanding. PLAN: MOB and will discharge home when ready. Resources provided for [facility] in the mood anxiety disorder packet. Will be calling [facility] children services due to infant exposure in utero. We will also monitor for meconium drug screen results. -ALBERT New, LANGUAGE TEACHER *This note was generated with [employer] dictation software. It may contain incorrect words, spelling, and punctuation that were not noted in review of the chart prior to signing*
--- NOTE | 2021-04-08 12:56 | CASEMGMT ---
Social Work Labor and Delivery Unit Called [facility] children services at [phone]. Spoke with Daniele in the intake department. 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 No urine has been obtained, but meconium is pending. Brief maternal history is provided. Daniele will write out the referral and review supervisor electron tube processing for determination on referral outcome. Children services would like to be called back should meconium come back positive. Daniele aware that mom and baby are slated for discharge today. Monitor for meconium drug screen results. Otherwise no other referrals requested or indicated. -ANASTASIIA New, PADDER CUSHION *This note was generated with SpinTheCam dictation software. It may contain incorrect words, spelling, and punctuation that were not noted in review of the chart prior to signing*
--- NOTE | 2021-04-08 13:03 | CASEMGMT ---
Social Work Labor and Delivery Unit Meconium drug screen results are back and positive for marijuana. Called the [facility] children services at [phone]. Spoke with Deana in the intake department of results. Deana reports she will get the new information documented and given to lasting room supervisor. Called the mother of baby, Ilsa Azar [phone] and updated to results. The baby had indicated prior to discharge that would like to know results are back. Answered questions the mother of baby had. No other services requested or indicated. -ANASTASIIA New, BENCH ASSEMBLER OPERATOR *This note was generated with Broccol-e-gamesation software. It may contain incorrect words, spelling, and punctuation that were not noted in review of the chart prior to signing*
== END 2021-03-27 15:05 | disposition home or self-care (01) | DRG 560 ==
LOC: WPOUT 12:48 → WP 13:12
PROVIDERS: Admitting Provider Advanced Practice Midwife; Referring Provider Advanced Practice Midwife; Visit Provider Advanced Practice Midwife
DX: O70.0 First degree perineal laceration during delivery (principal); Z87.891 Personal history of nicotine dependence; O69.81X0 Labor and delivery complicated by cord around neck, without compression, not applicable or unspecified; F12.90 Cannabis use, unspecified, uncomplicated; O99.324 Drug use complicating childbirth; Z3A.37 37 weeks gestation of pregnancy; Z37.0 Single live birth
CPT/HCPCS: 59025; 59050; 80307; 85025; 85027; 86850; 86900; 86901; 87426; 99218; J7120; G0378

== ENCOUNTER 2021-03-31 15:06 | Emergency (ER) | payer MEDICAID, SELFPAY ==
[2021-03-31 15:06] VITALS: BP 121/77; PULSE 66; RESP 16; TEMP 36.4; O2SAT 99; BMI 35.9
--- NOTE | 2021-03-31 15:11 | EKG12_ITS ---
Test Reason : CP Blood Pressure : / mmHG Vent. Rate : 059 BPM Atrial Rate : 059 BPM P-R Int : 140 ms QRS Dur : 082 ms QT Int : 380 ms P-R-T Axes : 066 049 018 degrees QTc Int : 376 ms Sinus bradycardia with sinus arrhythmia Otherwise normal ECG Confirmed by JORGE NIELSON, MATIAS ([id number]), fashion editor EDDIE DÍAZ ([id number]) on 04/01/2021 1:24:37 PM Referred By: MR Confirmed By:MATIAS PATEL MD
[2021-03-31 15:38] VITALS: O2SAT 98
[2021-03-31 15:41] LABS: Absolute Lymphocyte Count 2.15 X10^3/uL (0.83-4.51); Absolute Neutrophil Count 8.6 X10^3/uL (2.0-7.7); Basophil# 0.06 X10^3/uL; Basophil% 0.5 % (0-1); Eosinophil# 0.41 X10^3/uL; Eosinophils% 3.3 % (0-5); Hematocrit 36.7 % (37-47); Hemoglobin 12.1 g/dL (12.0-15.0); Lymphocyte # 2.15 X10^3/ul (0.83-4.51); Lymphocyte % 17.5 % (19-41); Mean Corpuscular Hgb 30.9 pg (27.0-32.0); Mean Corpuscular Volume 93.9 fL (81-99); Mean Platelet Vol. 9.5 fl (6.2-12.0); Monocyte# 1.04 X10^3/uL; Monocyte% 8.4 % (0-10); NRBC Flagged by Analyzer 0 % (0-5); Neutrophil # 8.59 X10^3/uL (2.7-7.7); Neutrophil % 69.7 % (47-70); Platelet Count 413 K/mm3 (150-450); RBC Distribution Width CV 12.7 % (11.6-14.6); RBC Distribution Width SD 43.8 fl (35.1-43.9); Red Blood Count 3.91 M/mm3 (4.2-5.4); White Blood Count 12.3 K/mm3 (4.4-11.0)
--- NOTE | 2021-03-31 15:42 | RAD_ITS ---
STUDY: X-RAY CHEST REASON FOR EXAM: Female, 20 years old. NTERMITTENT CHEST PAIN SINCE YESTERDAY, VAGINAL DELIVERY 03/26/21. SENT BY SALES DEVELOPMENT COORDINATOR TECHNIQUE: Single AP portable view of the chest. COMPARISON: JANUARY 08, 2020 FINDINGS: Mild bilateral lower lobe pulmonary edema is present. The remaining lung morris are clear. There is no demonstrated pleural abnormality. Normal size heart. Normal mediastinum and carroll. Normal visualized pulmonary arteries. Normal visualized aortic arch and descending thoracic aorta. Normal visualized thoracic spine. Normal visualized ribs, clavicles, and shoulders. There is no demonstrated abnormality of the visualized soft tissue structures of the upper abdomen. RAD/Chest 1 View (Portable) IMPRESSION: Mild bilateral lower lobe pulmonary edema Electronically Signed: Xander Saxena MD at 16:58 EDT , Service support ,
[2021-03-31 15:57] LABS: Anion Gap 6 (5-15); BUN 10 mg/dL (7-18); BUN/Creat Ratio 15.2 RATIO (10-20); Calcium,Total 8.6 mg/dL (8.5-10.1); Chloride 110 mmol/L (98-107); Creatinine, Serum 0.66 mg/dL (0.55-1.02); EST Glomerular Filtration Rate 120 mL/min (>60); Est Glom Filt Rate - Afr Amer 145 mL/min (>60); Estimated Creatinine Clearance 101.75 ml/min; Glucose 91 mg/dL (74-106); Potassium 4.1 mmol/L (3.5-5.1); Sodium Level 142 mmol/L (136-145); Troponin-I HS 5 pg/mL (3.0-54.0)
--- NOTE | 2021-03-31 16:07 | EDS_ITS ---
HPI History of Present Illness Chief Complaint: Chest Pain Detail of Chief Complaint: Pain that started yesterday Informant: patient Onset/Context/Timing Onset: Yesterday Timing: Intermittent Quality: Positive for Sharp and Stabbing Narrative Narrative: Patient presents to the emergency department complaint of sharp chest pain between her breasts that started yesterday. Patient states the pain is intermittent. Patient states at times is worse with deep breath. Patient states that she had a vaginal delivery on March 26 and was instructed by her DEVOPS ENGINEER to come in and get evaluated for PE. Patient has no history of PE or DVT. She denies any shortness of breath. She denies any fever or recent illness. She denies any trauma to her chest otherwise. She is never had pain like this before. She denies any abdominal pain. Prior Similar Symptoms: No PFSH PFSH Medical History (Updated 03/31/21 @ 18:[address] Ngoc Zavala, ) Asthma Neck pain Home Medications vit,[id number] 1 tab PO DAILY 04/06/19 [History Last Taken 03/25/21 1300] acetaminophen 1,000 mg PO Q6H PRN PRN #0 tab 03/27/21 [Rx Last Taken Unknown] ibuprofen 600 mg PO Q6H PRN PRN #30 tab 03/27/21 [Rx Last Taken Unknown] Allergy/AdvReac Type Severity Reaction Status Date / Time dextromethorphan AdvReac Other Verified 03/31/21 15:09 [From Dimetapp Cold-Congestion] diphenhydramine AdvReac Other Verified 03/31/21 15:09 [From Dimetapp Cold-Congestion] guaifenesin AdvReac Other Verified 03/31/21 15:09 [From Dimetapp Cold-Congestion] phenylephrine AdvReac Other Verified 03/31/21 15:09 [From Dimetapp Cold-Congestion] pseudoephedrine AdvReac Other Verified 03/31/21 15:09 [From Dimetapp Cold-Congestion] Family History Mother Overdose Surgical History (Updated 03/26/21 @ 16:34 by Alona Maciel CNM) H/O wisdom tooth extraction Social History household members: family housing: house number of children: 1 current occupational status: student current occupation: homemaker/student- finishing up BA in business pets and animals: Yes Smoking Status: Former smoker second hand exposure: Yes alcohol intake: never substance use type: former substance user Date of last use: 2018- marijuana seatbelt use: always do you feel safe at home: Yes additional social history: Inna romero ROS ROS ED Review of Systems ROS Unobtainable: other Constitutional Constitutional ED: Reports lethargy; Denies chills, fever(s), sweats or weight loss Eyes Eyes: Denies blurry vision, change in vision or diplopia ENT ENT ED: Denies rhinorrhea or sore throat Cardiovascular Cardiovascular: Reports chest pain and racing heartbeat; Denies orthopnea Respiratory/Chest Respiratory/Chest: Reports dyspnea and dyspnea on exertion; Denies cough, orthopnea or sputum Gastrointestinal Gastrointestinal: Denies abdominal pain, diarrhea, nausea or vomiting Genitourinary Genitourinary ED: Denies dysuria, hematuria or urinary frequency Musculoskeletal Musculoskeletal: Denies arthralgias, back pain, myalgias or neck pain Integumentary Denies abscess, Abrasions or rash Neurologic Neurologic: Denies headache(s) or weakness Psychiatric Psychiatric: Denies anxiety, depression or suicidal thoughts Endocrine Endocrinology: Denies polydipsia, polyphagia or polyuria Hematologic/Lymphatic Hematologic/Lymphatic: Denies easy bleeding, easy bruising or lymphadenopathy Allergic/Immunologic Allergic/Immunologic ED: Denies mouth swelling, tongue swelling or urticaria EXAM Physical Exam Const Vital Signs: 03/31/21 15:06 03/31/21 15:38 03/31/21 16:23 Temperature 97.6 F L Temperature Source Temporal Pulse Rate 66 78 Respiratory Rate 16 15 Respiratory Effort Normal Non-Labored Blood Pressure 121/77 H Blood Pressure Mean 91 Pulse Ox 99 98 99 Oxygen Delivery Method Room Air Room Air 03/31/21 17:17 Temperature Temperature Source Pulse Rate 70 Respiratory Rate 16 Respiratory Effort Blood Pressure Blood Pressure Mean Pulse Ox 97 Oxygen Delivery Method Room Air Positive well nourished and well developed General Appearance ED: well developed and NAD HEENT Reports TM's clear and moist mucous membranes normocephalic and atraumatic; Negative for trauma or tenderness Tympanic Membrane ED: Yes TM's clear Eyes PERRL and EOMs intact bilaterally General Eye ED: Negative for pale conjunctiva or scleral icterus Neck no lymphadenopathy, supple and no JVD General: Negative for tenderness Chest Wall inspection of chest normal and palpation of chest normal Chest: Negative for tenderness Resp normal respiratory effort and clear to auscultation bilaterally Effort and Inspection: Negative for respiratory distress or pain with movement Auscultation: Negative for rhonchi, wheezes or diminished lung sounds Cardio regular rate, regular rhythm, S1 normal heart sound, S2 normal heart sound and no murmurs Peripheral Pulses: pulses 2+ throughout GI normal to inspection, nondistended, normoactive bowel sounds, soft to palpation, non-tender, non-distended and no masses Back/Spine no CVA tenderness and no thoracic nor lumbar tenderness Extremity normal to inspection General Extremety ED: Negative for edema General Extremity: Negative for edema Neuro oriented x3, CN's II-XII intact bilaterally, no sensory deficits noted and gait normal Sensorium / Orientation: awake, alert, oriented to person, oriented to place and oriented to time Motor Exam: strength 5/5 throughout and strength abnormal Psych mental status grossly normal Skin no rashes or lesions noted and no wounds MDM MDM MDM Narrative Medical decision making narrative: Etiology of patient's chest pain unclear. There is no evidence of PE on CT and her work-up in the department essentially unremarkable. Patient advised to use Tylenol for discomfort. She is to follow- up with her primary care physician in 3 to 5 days. She is to return if worseni ng pain, increasing shortness of breath, or condition should worsen anyway. Lab Data Attestation: I reviewed the patient's lab results. Lab results narrative: Labs: Laboratory Results - last 24 hr 03/31/21 03/31/21 03/31/21 15:20 15:20 15:20 WBC 12.3 H RBC 3.91 L Hgb 12.1 Hct 36.7 L MCV 93.9 MCH 30.9 MCHC 33.0 RDW Std Deviation 43.8 RDW Coeff of Jamilah 12.7 Plt Count 413 MPV 9.5 Immature Gran % (Auto) 0.600 Neut % (Auto) 69.7 Lymph % (Auto) 17.5 L [place] % (Auto) 8.4 Eos % (Auto) 3.3 Baso % (Auto) 0.5 Absolute Neuts (auto) 8.6 H Absolute Lymphs (auto) 2.15 Nucleated RBC % 0 D-Dimer Quant (PE/DVT) 0.51 H* Sodium 142 Potassium 4.1 Chloride 110 H Carbon Dioxide 26.0 Anion Gap 6 BUN 10 Creatinine 0.66 Estim Creat Clear Calc 101.75 Est GFR (MDRD) Af Amer 145 Est GFR (MDRD) Non-Af 120 BUN/Creatinine Ratio 15.2 Glucose 91 Calcium 8.6 Troponin I High Sens 5 Radiography Chest X-Ray - ED: 1 View Diagnostic Testing: Radiology Impression Chest X-Ray 03/31/21 15:42 IMPRESSION: Mild bilateral lower lobe pulmonary edema Electronically Signed: Xander Saxena MD at 16:58 EDT , Service support , Chest CTA 03/31/21 17:08 IMPRESSION: Normal CTA chest examination, without a demonstrated pulmonary embolism or arterial dissection. Electronically Signed: Xander Saxena MD at 18:22 EDT , Service support , 1 view chest x-ray obtained interpreted by myself as no acute disease process. Radiology felt there was mild bilateral lower lobe pulmonary edema. EKG Initial EKG: Attestation: I personally reviewed and interpreted this EKG as follows: Comments: Sinus rhythm with ventricular rate of 59 bpm with occasional PACs. Prior EKG tracings: available for review Prior: Unchanged Discharge Plan Triage Chief Complaint: Chest Pain ED Provider: Ngoc Zavala Dx/Rx/DC Orders Clinical Impression: Chest pain Instructions: ED Chest Pain, Uncertain Cause Prescriptions: No Action vit,[id number] 1 TABLET tablet 1 tab PO DAILY RF: 0 acetaminophen 500 mg Tablet 1,000 mg PO Q6H PRN PRN (Reason: Pain 1-10 Or Fever) Qty: 0 RF: 0 ibuprofen 600 mg Tablet 600 mg PO Q6H PRN PRN (Reason: Pain Score 1-3) Qty: 30 RF: 0 Primary Care Provider: Care Physician,No Primary Referrals: Sheryl Burton MD [STAFF PHYSICIAN] - 3-5 Days Care Physician,No Primary [Primary Care Provider] - Disposition Disposition: Home, Self Care
[2021-03-31 16:23] VITALS: PULSE 78; RESP 15; O2SAT 99
--- NOTE | 2021-03-31 16:39 | ED.RN ---
pt states she needs to go breast feed her infant in the car with her . iv removed. pt states she will back in about 30 minutes.
[2021-03-31 17:07] LABS: D-Dimer Quantitative (DVT/PE) 0.51 FEU/ug/m (0.27-0.49)
--- NOTE | 2021-03-31 17:08 | CT_ITS ---
STUDY: CTA CHEST REASON FOR EXAM: Female, 20 years old. CHEST PAIN X 1 DAY, VAGINAL DELIVERY 03/26/21 RADIATION DOSAGE (If Supplied By Facility): CTDIvol = ( 12.44 ) mGy, DLP = ( 516.20 ) mGycm TECHNIQUE: The examination was performed with the intravenous administration of IV 100mL Isovue-370. Post-processing of the angiographic images was performed, with multiplanar reformation and 3D reconstruction. Individualized dose optimization techniques were used for this CT. COMPARISON: None. FINDINGS: Normal enhancement of the main pulmonary artery and right and left pulmonary arteries. Normal enhancement of the bilateral peripheral pulmonary arteries. There is no demonstrated pulmonary embolism. Normal thoracic aorta and visualized great vessels. There is no demonstrated aortic dissection. Normal heart and pericardium. Normal mediastinum. Normal hilar regions. Normal visualized trachea and bronchi. The lungs are well expanded. Normal pulmonary parenchyma. No consolidation or pulmonary edema or pleural effusion is seen. Normal pleura. Normal chest wall structures. Normal osseous structures. Normal visualized upper abdomen. CT/CTA Chest W/WO Contrast IMPRESSION: Normal CTA chest examination, without a demonstrated pulmonary embolism or arterial dissection. Electronically Signed: Xander Saxena MD at 18:22 EDT , Service support ,
[2021-03-31 17:17] VITALS: PULSE 70; RESP 16; O2SAT 97
[2021-03-31 18:40] VITALS: BP 128/68; PULSE 78; RESP 18; O2SAT 97
== END 2021-03-31 18:44 | disposition home or self-care (01) ==
PROVIDERS: Emergency Provider Emergency Medicine
DX: R07.9 Chest pain, unspecified (principal); J45.909 Unspecified asthma, uncomplicated; Z87.891 Personal history of nicotine dependence; J81.1 Chronic pulmonary edema
CPT/HCPCS: 71045; 71275; 80048; 84484; 85025; 85379; 93005; 99285; Q9967; A4216

== ENCOUNTER 2022-03-30 16:44 | Inpatient (IN) | payer MEDICAID, SELFPAY ==
[2022-03-30] VITALS (12 sets, daily range): BP systolic 119–158; BP diastolic 69–95; PULSE 60–86; TEMP 36.6–36.7; O2SAT 97; BMI 39.1
[2022-03-30 16:40] LABS: ROM Internal Control Test YES-OK TO RESULT pt. (Internal QC)
[2022-03-30 16:41] LABS: ROM Patient Test POSITIVE (Negative)
[2022-03-30] MEDS: Lactated Ringers 1,000 ML 50 ML IV (17:30)
[2022-03-30 17:33] LABS: Absolute Lymphocyte Count 2.68 X10^3/uL (0.83-4.51); Absolute Neutrophil Count 11.4 X10^3/uL (2.0-7.7); Basophil# 0.04 X10^3/uL; Basophil% 0.3 % (0-1); Eosinophils% 1.9 % (0-5); Hematocrit 34.8 % (37-47); Hemoglobin 11.7 g/dL (12.0-15.0); Lymphocyte # 2.68 X10^3/ul (0.83-4.51); Lymphocyte % 16.8 % (19-41); Mean Corp Hgb Conc 33.6 g/dL (32-36); Mean Corpuscular Hgb 29.6 pg (27.0-32.0); Mean Corpuscular Volume 88.1 fL (81-99); Mean Platelet Vol. 10.7 fl (6.2-12.0); Monocyte# 1.49 X10^3/uL; Monocyte% 9.3 % (0-10); NRBC Flagged by Analyzer 0 % (0-5); Neutrophil # 11.38 X10^3/uL (2.7-7.7); Neutrophil % 71.1 % (47-70); Platelet Count 351 K/mm3 (150-450); RBC Distribution Width SD 44.8 fl (35.1-43.9); Red Blood Count 3.95 M/mm3 (4.2-5.4)
[2022-03-30] MEDS: Oxytocin 30 units/NS 500 ml 30 UNITS/500 ML IV.SOLN IV (18:10)
[2022-03-30] MEDS: Oxytocin 30 units/NS 500 ml 30 UNITS/500 ML IV.SOLN 334 UNITS IV (19:27)
--- NOTE | 2022-03-30 19:40 | HP.PCM.OB_ITS ---
HPI - General General Date of Admission: 03/30/22 Date of Service: 03/30/22 Chief Complaint: SROM HPI Narrative [place] ELIZABETH, is a 21 F who presents with complaints of srom clear fluid. occasional ct Maternal Data Information Final VALENCIA: 04/20/22 Gestational age: 37 weeks [facility] Medical History (Updated 03/30/22 @ 19:[address] Radha Gandhi MD) Asthma Lumbar strain Neck pain Home Medications vits,calcium no.78-iron fumarate-folic acid 29 mg-1 mg tablet 1 tab PO DAILY 04/06/19 [History Last Taken 03/25/21 1300] Allergy/AdvReac Type Severity Reaction Status Date / Time dextromethorphan AdvReac Other Verified 03/30/22 16:55 [From Dimetapp Cold-Congestion] diphenhydramine AdvReac Other Verified 03/30/22 16:55 [From Dimetapp Cold-Congestion] guaifenesin AdvReac Other Verified 03/30/22 16:55 [From [employer]etapp Cold-Congestion] phenylephrine AdvReac Other Verified 03/30/22 16:55 [From Dimetapp Cold-Congestion] pseudoephedrine AdvReac Other Verified 03/30/22 16:55 [From Dimetapp Cold-Congestion] Family History Mother Overdose Surgical History H/O wisdom tooth extraction Social History household members: family housing: house number of children: 1 current occupational status: student current occupation: homemaker/student- finishing up BA in business pets and animals: Yes Smoking Status: Never smoker second hand exposure: Yes alcohol intake: never substance use type: former substance user Date of last use: 2018- marijuana seatbelt use: always do you feel safe at home: Yes additional social history: Inna heather History 2 Elective abortions Hx Para 2 Spontaneous abortions Hx # Term Pregnancies Ectopic pregnancies Hx # Pregnancies Multiple births # of living children 1 Past Pregnancies Del. Date Name GA/Weeks Outcome Route Bth Weight Gen Labor Lgth Anesthesia Del Locatn Provider FOB 04/06/19 Hemanth 39 live - full term vacuum 7lbs 7oz Male epidural [facility] Mamadou Delivery Date: 04/06/19 Last Updated by: Sulma DAWSON- maternal exhaustion persistent L OT position; 2nd degree laceration Vital Signs Vital Signs Vital Signs: 03/30/22 17:30 03/30/22 17:30 03/30/22 17:32 Temperature Temperature Source Pulse Rate 84 Blood Pressure 119/69 BP Systolic 119 BP Diastolic 69 Pulse Ox 97 03/30/22 17:32 03/30/22 17:30 03/30/22 17:30 Temperature 97.8 F Temperature Source Temporal Pulse Rate 78 Blood Pressure BP Systolic BP Diastolic Pulse Ox Weight Weight: 94 kg Body Mass Index (BMI) 39.1 Physical Exam Const alert and oriented x3 General Appearance: cooperative HEENT normocephalic GI GI Narrative: Gravid, non tender to palpation. OB / External & Speculum: external exam normal Extremity normal to inspection Skin no rashes or lesions noted Neuro oriented x3 and CN's II-XII intact bilaterally Psych Appearance: grossly normal Labs Labs Labs: Blood Type O POSITIVE Antibody Screen NEGATIVE Hct 34.8 % (37-47) L Hgb 11.7 g/dL (12.0-15.0) L Rhogam given: No Assessment & Plan (1) 37 weeks gestation of : (2) SROM (spontaneous rupture of membranes): PLAN: Plan Admit to L&D Montior FHR/TOCO Epidural if requested for pain Monitor VS Anticipate
--- NOTE | 2022-03-30 19:42 | EX.PCM.OBRPT ---
Vaginal Delivery Maternal Presentation Maternal Presentation: Spontaneous Rupture of Membranes Type of Induction: - (Pitocin augmentation ) Operative Information Date of Procedure: 03/30/22 Pre-Operative Diagnosis: 37 weeks, srom Post-Operative Diagnosis: same, live male infant Surgery / Procedure Performed: Spontaneous Vaginal Delivery Type of Anesthesia: None Special Medications: 1% lidocaine for repair 1st degree vaginal Estimated Blood Loss: 150 Time of Delivery: 19:25 Findings Description of Procedure: Called as patient was 9 cm. Upon my arrival at the hospital she was complete 100% and +1 station. At this time with good maternal pushing efforts the 's head was delivered without complication. Downward traction and good maternal pushing efforts delivered the anterior shoulder followed by the rest the infant's body. was placed on mother's chest he was vigorous at time of delivery. Delayed cord clamping was performed. Cord blood was obtained. Placenta was then delivered intact. First-degree vaginal laceration was appreciated. Small oozing noted from the laceration site decision for repair. 10 cc of 1% lidocaine was injected it was repaired with 3-0 Rapide. Presentation: Vertex Amniotic Membrane Rupture Type: Spontaneous Amniotic Fluid Description: Clear Placental Delivery Description: Spontaneous Placenta Disposition: [facility] Cord Vessel Description: 3 Vessels Cord Entanglement: None Infant A Gender: Male (1 minute): 9 (5 minute): 9 Delayed Cord Clamping: Yes Post Vaginal Delivery Medications Given After Delivery: IV Pitocin Episiotomy Description: None Laceration: Vaginal Extension/lac and 1st degree Complication Complications: None
[2022-03-30] MEDS: Acetaminophen 500 MG Tablet 1000 MG PO (20:12)
[2022-03-30] MEDS: Ibuprofen 600 MG Tablet PO (22:43)
[2022-03-31 00:30] VITALS: BP 105/60; PULSE 60; RESP 18; TEMP 36.3
[2022-03-31 04:32] VITALS: BP 112/63; PULSE 56; RESP 16; TEMP 36.7
[2022-03-31] MEDS: Acetaminophen 500 MG Tablet 1000 MG PO ×2 (06:20→14:53)
[2022-03-31 07:57] VITALS: BP 125/62; PULSE 74; RESP 16; RESP 17; TEMP 35.9; O2SAT 97
--- NOTE | 2022-03-31 08:23 | PN.OBGYN_ITS ---
Subjective Subjective Patient seen at bedside. Feeling good. Ambulating and voiding without difficulty. Lochia decreasing. independently. Desires discharge home at 24 hours. Objective Data Objective Data Vital Signs: Vital Signs Temp Pulse Resp BP Pulse Ox O2 Del Method 96.7 F L 74 16 125/62 H 97 Room Air 03/31/22 07:57 03/31/22 07:57 03/31/22 07:57 03/31/22 07:57 03/31/22 07:57 03/31/22 07:57 Oxygen Delivery Method Room Air Weight: 207 lb 3.752 oz Body Mass Index (BMI) 39.1 Intake & Output: Intake and Output for Last 24 Hours 03/29/22 03/30/22 03/31/22 23:59 23:59 23:59 Intake Total 600.07 / 600.07 Output Total 200 / 200 600 / 600 Balance 400.07 / 400.07 -600 / -600 Lab / Micro Data Result Diagrams: 03/30/22 17:20 Labs: Laboratory Results - last 24 hr 03/30/22 16:15: Vag Amniotic Fld Detect POSITIVE H 03/30/22 17:20: WBC 16.0 H, RBC 3.95 L, Hgb 11.7 L, Hct 34.8 L, MCV 88.1, MCH 29.6, MCHC 33.6, RDW Std Deviation 44.8 H, RDW Coeff of Jamilah 14.0, Plt Count 351, MPV 10.7, Immature Gran % (Auto) 0.600, Neut % (Auto) 71.1 H, Lymph % (Auto) 16.8 L, [place] % (Auto) 9.3, Eos % (Auto) 1.9, Baso % (Auto) 0.3, Absolute Neuts (auto) 11.4 H, Absolute Lymphs (auto) 2.68, Nucleated RBC % 0 03/30/22 17:20: Blood Type O POSITIVE, Antibody Screen NEGATIVE Micro: Microbiology 03/30/22 17:10 Nasal Secretion SARS-CoV-2 Antigen (Rapid) - Final ROS Eyes Eyes: Denies blurry vision, change in vision or spots in vision ENT HEENT: Denies dizziness or headache(s) Cardiovascular Cardiovascular: Denies abdominal pain, chest pain or dyspnea Respiratory/Chest Respiratory/Chest: Denies cough, dyspnea, shortness of breath at rest or shortness of breath with exertion Gastrointestinal Gastrointestinal: Denies abdominal pain, diarrhea or vomiting Genitourinary Genitourinary: Denies change in urinary stream, difficulty urinating or dysuria Musculoskeletal Musculoskeletal: Reports none Integumentary Integumentary: Denies rash Neurologic Neurologic: Denies dizziness, headache(s), memory loss or weakness Physical Exam Const alert and no apparent distress General Appearance: cooperative and comfortable Exam Limitations: no limitations HEENT normocephalic Eyes General Eye: normal appearance of both eyes Neck full ROM General: normal visual inspection Chest Chest: symmetrical chest wall rise Resp normal respiratory effort and normal air movement Effort and Inspection: symmetric chest movement Auscultation: clear to auscultation bilaterally Cardio regular rate and regular rhythm GI normal to inspection, nondistended, normoactive bowel sounds Back/Spine normal ROM Extremity full ROM and no calf tenderness General Extremity: normal exam except as noted Skin no rashes or lesions noted Neuro CN's II-XII intact bilaterally Psych mental status grossly normal Assessment & Plan (1) (spontaneous vaginal delivery): (2) Laceration, obstetrical, first degree: (3) Care and examination of lactating mother: PLAN: Plan PPD 1 Routine care support D/C home with follow up in office
--- NOTE | 2022-03-31 08:26 | DCINST_ITS ---
Discharge Instructions Diet Discharge Diet: No restrictions Activity Discharge Activity: Return to Normal Activity and May Shower May resume sexual activity in: 6-8 weeks Weight Bearing Status: Weight bearing as tolerated Follow Up Care Please Follow Up With: Cee Bradshaw CNM When: 1 week for PP check Test Results: Test results from this visit will be discussed in further detail at your follow- up appointment, if applicable. Discharge Plan Admission Admit Date/Time: 03/30/22 16:44 Primary Reason for Your Visit: Labor and Delivery Attending Provider: Radha Gandhi Primary Care Provider: Care Physician,[place] Primary Discharge Orders/Prescriptions Prescriptions: No Action vit,[id number] 1 TABLET tablet 1 tab PO DAILY Referrals / Follow Up: Care Physician,No Primary [Primary Care Provider] - Disposition Disposition (needs filled in before D/C Order can be placed): Home, Self Care
[2022-03-31 11:15] VITALS: BP 121/79; PULSE 64; RESP 16; TEMP 36.2; O2SAT 96
[2022-03-31] MEDS: Ibuprofen 600 MG Tablet PO (11:22)
[2022-03-31 15:49] VITALS: BP 150/76; PULSE 65; RESP 17; TEMP 36.2; O2SAT 98
[2022-03-31 19:42] VITALS: BP 130/72; PULSE 69; RESP 16; TEMP 36.3; O2SAT 99
== END 2022-03-31 21:16 | disposition home or self-care (01) | DRG 560 ==
LOC: WPOUT 16:45 → WP 16:45
PROVIDERS: Admitting Provider Obstetrics & Gynecology; Referring Provider Obstetrics & Gynecology; Visit Provider Obstetrics & Gynecology
DX: O70.0 First degree perineal laceration during delivery (principal); Z37.0 Single live birth; Z3A.37 37 weeks gestation of pregnancy
CPT/HCPCS: 59025; 59050; 84112; 85025; 86850; 86900; 86901; 87426; 99218; J7120; G0378

== ENCOUNTER 2024-02-27 14:30 | Emergency (ER) | payer MEDICAID, SELFPAY ==
[2024-02-27 14:31] VITALS: BP 144/102; PULSE 85; RESP 19; TEMP 36.4; O2SAT 98
== END 2024-02-27 17:15 | disposition left against medical advice (07) ==
LOC: ED 17:17
DX: R20.0 Anesthesia of skin (principal)

== ENCOUNTER → 2024-02-28 | Outpatient (CLI) | payer MEDICAID, SELFPAY ==
[2024-02-28 17:25] LABS: Absolute Lymphocyte Count 2.73 X10^3/uL (0.83-4.51); Absolute Neutrophil Count 6.2 X10^3/uL (2.0-7.7); Basophil# 0.05 X10^3/uL; Basophil% 0.5 % (0-1); Eosinophil# 0.32 X10^3/uL; Eosinophils% 3.2 % (0-5); Hemoglobin 14.1 g/dL (12.0-15.0); Lymphocyte # 2.73 X10^3/ul (0.83-4.51); Lymphocyte % 27.1 % (19-41); Mean Corp Hgb Conc 34.4 g/dL (32-36); Mean Corpuscular Hgb 31.5 pg (27.0-32.0); Mean Corpuscular Volume 91.7 fL (81-99); Mean Platelet Vol. 11.5 fl (6.2-12.0); Monocyte# 0.73 X10^3/uL; Monocyte% 7.2 % (0-10); NRBC Flagged by Analyzer 0 % (0-5); Neutrophil # 6.23 X10^3/uL (2.7-7.7); Neutrophil % 61.7 % (47-70); Platelet Count 300 K/mm3 (150-450); RBC Distribution Width CV 11.8 % (11.6-14.6); RBC Distribution Width SD 39.8 fl (35.1-43.9); Red Blood Count 4.47 M/mm3 (4.2-5.4); White Blood Count 10.1 K/mm3 (4.4-11.0)
[2024-02-28 17:44] LABS: Vitamin D,25 Hydroxy 43.3 ng/mL
[2024-02-28 17:56] LABS: ALB/GLOB Ratio 1.3 RATIO (0.9-2.4); AST(SGOT) 13 U/L (15-37); Alanine Aminotransfer ALT/SGPT 18 U/L (13-56); Alkaline Phosphatase 74 U/L (45-117); Anion Gap 5 (5-15); BUN 9 mg/dL (7-18); BUN/Creat Ratio 13.8 RATIO (10-20); Calcium,Total 8.9 mg/dL (8.5-10.1); Chloride 106 mmol/L (98-107); Creatinine, Serum 0.65 mg/dL (0.55-1.02); EST Glomerular Filtration Rate 118 mL/min (>60); Est Glom Filt Rate - Afr Amer 143 mL/min (>60); Globulin 3.1 g/dL (2.2-4.2); Glucose 130 mg/dL (74-106); Potassium 3.6 mmol/L (3.5-5.1); Protein, Total 7.1 g/dL (6.4-8.2); Sodium Level 137 mmol/L (136-145); Thyroid Stim Hormone (TSH) 0.803 uIU/mL (0.358-3.740)
== END | disposition home or self-care (01) ==
PROVIDERS: PCP Family Medicine; Visit Provider Family Medicine
DX: F41.0 Panic disorder [episodic paroxysmal anxiety] (principal)
CPT/HCPCS: 36415; 80053; 82306; 84443; 85025

== ENCOUNTER → 2024-10-29 | Outpatient (CLI) | payer MEDICAID, SELFPAY ==
[2024-10-29 12:46] LABS: Hemoglobin 14.1 g/dL (12.0-15.0); Mean Corp Hgb Conc 34.4 g/dL (32-36); Mean Corpuscular Hgb 31.3 pg (27.0-32.0); Mean Corpuscular Volume 91.1 fL (81-99); Mean Platelet Vol. 10.8 fl (6.2-12.0); Platelet Count 293 K/mm3 (150-450); RBC Distribution Width CV 11.9 % (11.6-14.6); RBC Distribution Width SD 39.7 fl (35.1-43.9); White Blood Count 8.6 K/mm3 (4.4-11.0)
[2024-10-29 13:20] LABS: Ferritin 21 ng/mL (22-378); Iron 139 ug/dL (50-170); Iron Binding Capacity,Total 369 ug/dL (250-450); Iron Binding Capacity,Unsat 230 ug/dL (228-428)
== END | disposition home or self-care (01) ==
LOC: MFPLAB 10:30
PROVIDERS: PCP Family Medicine; Referring Provider Family Medicine; Visit Provider Family Medicine
DX: D64.9 Anemia, unspecified (principal)
CPT/HCPCS: 36415; 82728; 83540; 83550; 85027

== ENCOUNTER 2024-12-19 22:22 | Emergency (ER) | payer MEDICAID, SELFPAY ==
[2024-12-19 22:22] VITALS: BP 146/97; PULSE 78; RESP 18; TEMP 36.1; O2SAT 99; BMI 35.9
[2024-12-19 23:24] VITALS: BP 102/55; BP 107/69; BP 114/72; PULSE 62; PULSE 70; PULSE 74
--- NOTE | 2024-12-20 00:12 | CT_ITS ---
PROCEDURE: BRAIN/HEAD WITHOUT CONTRAST 12/20/2024 REASON FOR EXAM: DIZZINESS TECHNIQUE: Head CT without intravenous contrast. Coronal and Sagittal reconstruction series were provided. One or more dose reduction techniques were used (e.g., Automated exposure control, adjustment of the mA and/or kV according to patient size, use of iterative reconstruction technique. RADIATION DOSE SUMMARY: CTDlvol: 45.0 mGy DLP: 796 mGycm COMPARISON: None FINDINGS: Brain: No acute intracranial hemorrhage, mass effect, or midline shift. The lynn-white differentiation is maintained. CSF Spaces: Normal Sinuses/Mastoids: Clear at visualized levels Bones: Unremarkable CT/Brain/Head without Contrast IMPRESSION: No acute intracranial abnormality. Reading Location: [place]
[2024-12-20 00:27] LABS: Absolute Lymphocyte Count 1.93 X10^3/uL (0.83-4.51); Absolute Neutrophil Count 6.7 X10^3/uL (2.0-7.7); Basophil# 0.07 X10^3/uL; Basophil% 0.7 % (0-1); Eosinophil# 0.27 X10^3/uL; Eosinophils% 2.7 % (0-5); Hematocrit 38.9 % (37-47); Hemoglobin 13.7 g/dL (12.0-15.0); Lymphocyte # 1.93 X10^3/ul (0.83-4.51); Lymphocyte % 19.4 % (19-41); Mean Corp Hgb Conc 35.2 g/dL (32-36); Mean Corpuscular Hgb 31.9 pg (27.0-32.0); Mean Corpuscular Volume 90.5 fL (81-99); Mean Platelet Vol. 10.9 fl (6.2-12.0); NRBC Flagged by Analyzer 0 % (0-5); Neutrophil # 6.74 X10^3/uL (2.7-7.7); Neutrophil % 67.8 % (47-70); Platelet Count 271 K/mm3 (150-450); RBC Distribution Width CV 12.1 % (11.6-14.6); RBC Distribution Width SD 39.5 fl (35.1-43.9)
--- OUTSIDE RECORDS SUMMARY | 2024-12-20 00:31 | XMS RPT_ITS | CCD ---
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 No weakness. Coordination: Coordination normal. Gait: Gait normal. Comments: Patient's [id number] is normal test of skew is negative there is no nystagmus Psychiatric: Behavior: Behavior is cooperative. Laboratory & Radiological Imaging (if done): Labs Reviewed POC CBC AND DIFFERENTIAL - Abnormal; Notable for the following components: Result Value Monocytes Abs 1.12 (*) All other components within normal limits POC BASIC METABOLIC PANEL - RALS - Abnormal; Notable for the following components: BUN 5 (*) All other components within normal limits Narrative: [facility] has implemented the eGFR calculation approach that does not have a coefficient for race that conforms to the NKF-ASN Task Force Recommendations. POC BASIC METABOLIC PANEL No orders to display Procedures: EKG 12-lead Date/Time: 10/24/2024 9:02 PM Performed by: Darren Messina MD Authorized by: Darren Messina MD Interpreted by ED attending physician Rhythm: sinus rhythm BPM: 75 Conduction: conduction normal ST Segments: ST segments normal ED Course / Medical Decision Making: I did personally review Wellington's past medical history, surgical history, social history, as well as family history (when relevant). In this case, I also oversaw the her drug management by reviewing her medication list, allergy list, as well as the medications that I prescribed during the ED course and/or recommended as an out-patient (including possible OTC medications such as acetaminophen, NSAIDs , etc). Her past medical problem list included: Active Ambulatory Problems Diagnosis Date Noted No Active Ambulatory Problems Resolved Ambulatory Problems Diagnosis Date Noted No Resolved Ambulatory Problems Past Medical History: Diagnosis Date Asthma ED MEDICATIONS GIVEN: Medications - No data to display After reviewing the items above, I did not look at previous medical documentation, such as recent hospitalizations, office visits, and/or recent consultations with PCP/specialist. SDOH: Another factor that I considered in Wellington's care was her Social Determinants of Health (SDOH). During this ED encounter, she did NOT appear to have any significant issues identified. ED COURSE: My differential diagnosis Stressed induced headache, electrolyte imbalance, anemia, I ordered CBC and chemistry panel following which further disposition will be done CBC chemistry was unremarkable EKG was unchanged at this time patient was comfortable I offered her anxiety medication for home hydroxyzine but she refused presents with a Sleepy we talked about other antianxiety antidepressants but she states that her fianc who was a started on them kill himself so she would not take them I advised her that she should follow-up with her primary care provider and discuss further options patient at this time neurology (more content not included)... Normal [facility] POC BASIC METABOLIC PANEL - Silvia 10-24-2024 Chloride [Moles/Vol] 102 mmol/L Normal 98-108 [facility] Comment on above: Order Comment: [facility] has implemented the eGFR calculation approach that does not have a coefficient for race that conforms to the NKF-ASN Task Force Recommendations. CO2 [Moles/Vol] 29 mmol/L Normal 21-32 [facility] Comment on above: Order Comment: [facility] has implemented the eGFR calculation approach that does not have a coefficient for race that conforms to the NKF-ASN Task Force Recommendations. Creatinine [Mass/Vol] 0.58 mg/dL Normal 0.40-1.10 [facility] Comment on above: Order Comment: [facility] has implemented the eGFR calculation approach that does not have a coefficient for race that conforms to the NKF-ASN Task Force Recommendations. Glucose [Mass/Vol] 95 mg/dL Normal 65-99 [facility] Comment on above: Order Comment: [facility] has implemented the eGFR calculation approach that does not have a coefficient for race that conforms to the NKF-ASN Task Force Recommendations. POC GFR 130 mL/min/1.73 m2 Normal >=60 [facility] Comment on above: Order Comment: [facility] has implemented the eGFR calculation approach that does not have a coefficient for race that conforms to the NKF-ASN Task Force Recommendations. Result Comment: Zeynep mated GFR was calculated using the 2020 CKD-EPI creatinine equation. POC IONIZED CALCIUM 4.9 mg/dL Normal 4.5-5.3 [facility] Comment on above: Order Comment: [facility] has implemented the eGFR calculation approach that does not have a coefficient for race that conforms to the NKF-ASN Task Force Recommendations. Potassium [Moles/Vol] 3.7 mmol/L Normal 3.5-5.1 [facility] Comment on above: Order Comment: [facility] has implemented the eGFR calculation approach that does not have a coefficient for race that conforms to the NKF-ASN Task Force Recommendations. Sodium [Moles/Vol] 140 mmol/L Normal 135-145 [facility] Comment on above: Order Comment: [facility] has implemented the eGFR calculation approach that does not have a coefficient for race that conforms to the NKF-ASN Task Force Recommendations. Urea nitrogen [Mass/Vol] 5 mg/dL Low 8-25 [facility] Comment on above: Order Comment: [facility] has implemented the eGFR calculation approach that does not have a coefficient for race that conforms to the NKF-ASN Task Force Recommendations. POC CBC AND DIFFERENTIALon 0 10-24-2024 BASOPHILS ABSOLUTE COUNT 0.05 K/mcL Normal 0.00-0.30 [facility] Basophils/100 WBC (Bld) 0.5 % Normal [facility] Eosinophils (Bld) [#/Vol] 0.36 10*3/uL Normal 0.00-0.50 [facility] Eosinophils/100 WBC (Bld) 3.5 % Normal [facility] Erythrocyte distribution width (RBC) [Ratio] 11.8 % Normal 11.6-14.8 [facility] Hematocrit (Bld) [Volume fraction] 40.6 % Normal 36.0-46.0 [facility] Hemoglobin (Bld) [Mass/Vol] 14.4 g/dL Normal 12.0-16.0 [facility] IG ABSOLUTE 0.01 K/mcL Normal 0.00-0.30 [facility] IG PERCENT 0.10 % Normal [facility] Comment on above: Result Comment: The IG parameter is the percentage of metamyelocytes, myelocytes and promyelocytes. An immature granulocyte count (IG) of 1% or more suggests the possibility of infection, an IG count of 3% is very likely related to an infection. Lymphocytes (Bld) [#/Vol] 2.85 10*3/uL Normal 0.90-4.00 [facility] Lymphocytes/100 WBC (Bld) 27.8 % Normal [facility] MCH (RBC) [Entitic mass] 31.7 pg Normal 26.0-34.0 [facility] MCV (RBC) [Entitic vol] 89.4 fL Normal 80.0-100.0 [facility] MEAN CORPUSCULAR HEMOGLOBIN CONC 35.5 g/dL Normal 31.0-37.0 [facility] Monocytes (Bld) [#/Vol] 1.12 10*3/uL High 0.30-0.90 [facility] Monocytes/100 WBC (Bld) 10.9 % Normal [facility] NEUTROPHILS ABSOLUTE COUNT 5.88 K/mcL Normal 1.70-7.00 [facility] Neutrophils/100 WBC (Bld) 57.2 % Normal [facility] Platelet mean volume (Bld) [Entitic vol] 10.2 fL Normal 9.4-12.4 [facility] Platelets (Bld) [#/Vol] 279 10*3/uL Normal 150-400 [facility] RBC (Bld) [#/Vol] 4.54 10*6/uL Normal 4.00-5.20 [facility] WBC (Bld) [#/Vol] 10.27 10*3/uL Normal 4.50-11.00 [facility] ED Prov Noteon 08-24-2024 ED Prov Note ED PROVIDER NOTE [facility] EM[facility]Y [facility] NAME: Wellington Elizabeth AGE: 23 y.o. : 2000 VISIT DATE: 08/24/2024 CSN: [id number] PCP: Chirag Temple MD Chief Complaint Patient presents with Dizziness Patient is a 23-year-old female with a past medical history of asthma who presents today for concern of COVID and flulike symptoms. Patient states she is diagnosed with COVID 2 days prior. Patient states she has been lightheaded and dizzy and feels like she is dehydrated and has a mild cough. Patient denies any chest pain, shortness of breath, abdominal pain, fevers or additional focal neurological deficits. Patient admits to sick contacts. Patient been eating less solids but has been drinking normal with normal urine output. Past Medical History: Diagnosis Date Asthma History reviewed. No pertinent surgical history. History reviewed. No pertinent family history. Social History Socioeconomic History Marital status: Single Tobacco Use Smoking status: Every Day Types: Cigarettes Smokeless tobacco: Never Vaping Use Vaping status: Some Days Substances: Nicotine Substance and Sexual Activity Alcohol use: Not Currently Drug use: Not Currently Previous Medications Medication Sig fluticasone propionate (FLONASE) 50 mcg/actuation nasal spray Instill 2 (two) sprays into each nostril daily . No Known Allergies Review of Systems Constitutional: Positive for fatigue. Negative for chills and fever. Eyes: Negative for pain. Respiratory: Positive for cough. Negative for chest tightness and shortness of breath. Cardiovascular: Negative for chest pain and palpitations. Gastrointestinal: Negative for abdominal pain, nausea and vomiting. Genitourinary: Negative for flank pain. Musculoskeletal: Positive for arthralgias and myalgias. Skin: Negative for rash. Neurological: Positive for dizziness and light-headedness. Negative for syncope and headaches. Psychiatric/Behavior al: Negative for agitation. All other systems reviewed and are negative. Patient Vitals for the past 24 hrs: BP Temp Pulse Resp SpO2 Height Weight 08/24/24 1734 (!) 156/78 97.9 degrees F (36.6 degrees C) 85 16 98 % 5' 1 77.1 kg (170 lb) Physical Exam Vitals and nursing note reviewed. Constitutional: Appearance: Normal appearance. HENT: Head: Normocephalic. Nose: Congestion and rhinorrhea present. Eyes: Pupils: Pupils are equal, round, and reactive to light. Cardiovascular: Rate and Rhythm: Normal rate and regular rhythm. Pulses: Normal pulses. Heart sounds: Normal heart sounds. Musculoskeletal: Cervical back: Normal range of motion. Pulmonary: Effort: Pulmonary effort is normal. No respiratory distress. Breath sounds: Normal breath sounds. No wheezing or rales. Abdominal: General: Abdomen is flat. There is no distension. Tenderness: There is no abdominal tenderness. There is no guarding. Skin: General: Skin is warm. Capillary Refill: Capillary refill takes less than 2 seconds. Neurological: General: No focal deficit present. Mental Status: She is alert and oriented to person, place, and time. Cranial Nerves: No cranial nerve deficit. Sensory: No sensory deficit. Motor: No weakness. Coordination: Coordination normal. Gait: Gait normal. Psychiatric: Mood and Affect: Mood normal. Laboratory & Radiographic Imaging (if done): Results for orders placed or performed during the hospital encounter of 08/24/24 POC CBC and Differential Result Value Ref Range WBC 4.42 (L) 4.50 - 11.00 K/mcL RBC 4.69 4.00 - 5.20 M/mcL Hemoglobin 14.7 12.0 - 16.0 g/dL Hematocrit 42.2 36.0 - 46.0 % MCV 90.0 80.0 - 100.0 fL MCH 31.3 26.0 - 34.0 pg MCHC 34.8 31.0 - 37.0 g/dL RDW - CV 11.6 11.6 - 14.8 % Platelets 234 150 - 400 K/mcL MPV 9.9 9.4 - 12.4 fL Neutrophils 59.5 % Lymphocytes 30.1 % Monocytes 8.8 % Eosinophils 1.1 % Basophils 0.5 % IG Percent 0.00 % Neutrophils Abs 2.63 1.70 - 7.00 K/mcL Lymphocytes Abs 1.33 0.90 - 4.00 K/mcL Monocytes Abs 0.39 0.30 - 0.90 K/mcL Eosinophils Abs 0.05 0.00 - 0.50 K/mcL Basophils Abs 0.02 0.00 - 0.30 K/mcL IG Absolute 0.00 0.00 - 0.30 K/mcL POC Basic Metabolic Panel Result Value Ref Range Glucose 113 (H) 65 - 99 mg/dL BUN 7 (L) 8 - 25 mg/dL Creatinine 0.45 0.40 - 1.10 mg/dL GFR 138 >=60 mL/min/1.73 m2 Sodium 140 135 - 145 mmol/L Potassium 4.0 3.5 - 5.1 mmol/L Chloride 103 98 - 108 mmol/L TCO2 26 21 - 32 mmol/L Ionized Calcium 4.7 4.5 - 5.3 mg/dL POC Troponin I Result Value Ref Range Troponin I <0.05 <0.05 ng/mL No orders to display Procedures Medical Decision Making Patient was seen and evaluated for concern of lightheaded and dizziness in the setting of COVID. CBC BMP troponin clinically unremarkable. EKG clinically unremarkable. Patient was told to increase hydration educated reason return and agrees to do so patient was discharged in stable condition. (more content not included)... Normal [facility] POC BASIC METABOLIC PANEL - Silvia 08-24-2024 Chloride [Moles/Vol] 103 mmol/L Normal 98-108 [facility] Comment on above: Order Comment: [facility] has implemented the eGFR calculation approach that does not have a coefficient for race that conforms to the NKF-ASN Task Force Recommendations. CO2 [Moles/Vol] 26 mmol/L Normal 21-32 [facility] Comment on above: Order Comment: [facility] has implemented the eGFR calculation approach that does not have a coefficient for race that conforms to the NKF-ASN Task Force Recommendations. Creatinine [Mass/Vol] 0.45 mg/dL Normal 0.40-1.10 [facility] Comment on above: Order Comment: [facility] has implemented the eGFR calculation approach that does not have a coefficient for race that conforms to the NKF-ASN Task Force Recommendations. Glucose [Mass/Vol] 113 mg/dL High 65-99 [facility] Comment on above: Order Comment: [facility] has implemented the eGFR calculation approach that does not have a coefficient for race that conforms to the NKF-ASN Task Force Recommendations. POC GFR 138 mL/min/1.73 m2 Normal >=60 [facility] Comment on above: Order Comment: [facility] has implemented the eGFR calculation approach that does not have a coefficient for race that conforms to the NKF-ASN Task Force Recommendations. Result Comment: Zeynep mated GFR was calculated using the 2020 CKD-EPI creatinine equation. POC IONIZED CALCIUM 4.7 mg/dL Normal 4.5-5.3 [facility] Comment on above: Order Comment: [facility] has implemented the eGFR calculation approach that does not have a coefficient for race that conforms to the NKF-ASN Task Force Recommendations. Potassium [Moles/Vol] 4.0 mmol/L Normal 3.5-5.1 [facility] Comment on above: Order Comment: [facility] has implemented the eGFR calculation approach that does not have a coefficient for race that conforms to the NKF-ASN Task Force Recommendations. Sodium [Moles/Vol] 140 mmol/L Normal 135-145 [facility] Comment on above: Order Comment: [facility] has implemented the eGFR calculation approach that does not have a coefficient for race that conforms to the NKF-ASN Task Force Recommendations. Urea nitrogen [Mass/Vol] 7 mg/dL Low 8-25 [facility] Comment on above: Order Comment: [facility] has implemented the eGFR calculation approach that does not have a coefficient for race that conforms to the NKF-ASN Task Force Recommendations. POC CBC AND DIFFERENTIALon 0 08-24-2024 BASOPHILS ABSOLUTE COUNT 0.02 K/mcL Normal 0.00-0.30 [facility] Basophils/100 WBC (Bld) 0.5 % Normal [facility] Eosinophils (Bld) [#/Vol] 0.05 10*3/uL Normal 0.00-0.50 [facility] Eosinophils/100 WBC (Bld) 1.1 % Normal [facility] Erythrocyte distribution width (RBC) [Ratio] 11.6 % Normal 11.6-14.8 [facility] Hematocrit (Bld) [Volume fraction] 42.2 % Normal 36.0-46.0 [facility] Hemoglobin (Bld) [Mass/Vol] 14.7 g/dL Normal 12.0-16.0 [facility] IG ABSOLUTE 0.00 K/mcL Normal 0.00-0.30 [facility] IG PERCENT 0.00 % Normal [facility] Comment on above: Result Comment: The IG parameter is the percentage of metamyelocytes, myelocytes and promyelocytes. An immature granulocyte count (IG) of 1% or more suggests the possibility of infection, an IG count of 3% is very likely related to an infection. Lymphocytes (Bld) [#/Vol] 1.33 10*3/uL Normal 0.90-4.00 [facility] Lymphocytes/100 WBC (Bld) 30.1 % Normal [facility] MCH (RBC) [Entitic mass] 31.3 pg Normal 26.0-34.0 [facility] MCV (RBC) [Entitic vol] 90.0 fL Normal 80.0-100.0 [facility] MEAN CORPUSCULAR HEMOGLOBIN CONC 34.8 g/dL Normal 31.0-37.0 [facility] Monocytes (Bld) [#/Vol] 0.39 10*3/uL Normal 0.30-0.90 [facility] Monocytes/100 WBC (Bld) 8.8 % Normal [facility] NEUTROPHILS ABSOLUTE COUNT 2.63 K/mcL Normal 1.70-7.00 [facility] Neutrophils/100 WBC (Bld) 59.5 % Normal [facility] Platelet mean volume (Bld) [Entitic vol] 9.9 fL Normal 9.4-12.4 [facility] Platelets (Bld) [#/Vol] 234 10*3/uL Normal 150-400 [facility] RBC (Bld) [#/Vol] 4.69 10*6/uL Normal 4.00-5.20 [facility] WBC (Bld) [#/Vol] 4.42 10*3/uL Low 4.50-11.00 [facility] POC TROPONIN I Silvia 2024 POC TROPONIN I < Normal <0.05 [facility] CNOVon 07-05-2024 CNOV Office Visit (UCTR) [place] ELIZABETH ([id number]) 89 F Date Time Provider Department 07/05/24 7:45 PM SAMI CALLES [facility] During your visit today, we recorded the following information about you: Temperature Pulse Respiration Blood pressure 99.1 degrees 88/minute 18/minute 123/78 Weight 86.4 kg Sami Calles APRN.SUPERVISOR RECORD PRESS 07/05/2024 8:07 PM Signed Subjective HPI Nontoxic-appearing female presents urgent care chief complaint pharyngitis headache. Duration of symptoms 3 days. Associated symptoms listed above. Presents today for evaluation. Most prominent symptom today is sore throat. OTC medications none. No difficulty swallowing and secretion decreased range of motion of neck. Denies chance is not breast-feeding. Past medical history prescription medications allergies reviewed. .Patient presents with: Sore Throat: KIM x3 days PAST MEDICAL HISTORY Diagnosis Date Asthma PAST SURGICAL HISTORY Procedure Laterality Date PAST SURGICAL HISTORY OF wisdom teeth ALLERGIES Dimetapp [Brompheniramine-Pse udoephedrin] MEDICATIONS albuterol HFA (PROAIR HFA) 90 mcg/actuation inhaler Inhale 2 Puffs as instructed every 4 hours as needed. FAMILY HISTORY Problem Relation Age of Onset Alcohol/Drug Mother drug overdose No Known Problems Father No Known Problems Sister No Known Problems Sister No Known Problems Sister No Known Problems Brother No Known Problems Brother No Known Problems Brother No Known Problems Maternal Grandmother No Known Problems Paternal Grandmother No Known Problems Paternal Grandfather Eczema Son Eczema Daughter Social History Tobacco Use Smoking status: Former Current packs/day: 0.00 Types: Cigarettes Start date: 07/20/2017 Quit date: 07/20/2018 Years since quittin.9 Passive exposure: Current Smokeless tobacco: Never Tobacco comments: social smoker Vaping Use Vaping status: Some Days Last attempt to quit: 09/08/2018 Substance Use Topics Alcohol use: No Drug use: No BP 123/78 Pulse 88 Temp 37.3 ?C (99.1 ?F) Resp 18 Wt 86.4 kg (190 lb 7.6 oz) LMP 05/03/2024 (Exact Date) SpO2 99% No BMI 34.87 kg/m? Review of Systems Constitutional: Negative for chills, fever and malaise/fatigue. HENT: Positive for sore throat. Negative for congestion, ear discharge, ear pain and sinus pain. Eyes: Negative for blurred vision, pain, discharge and redness. Respiratory: Negative for cough, hemoptysis, sputum production, shortness of breath, wheezing and stridor. Cardiovascular: Negative for chest pain. Gastrointestinal: Negative for abdominal pain, diarrhea, nausea and vomiting. Musculoskeletal: Negative for myalgias. Skin: Negative for itching and rash. Neurological: Positive for headaches. Negative for dizziness. Objective Physical Exam Constitutional: General: She is not in acute distress. Appearance: She is not diaphoretic. HENT: Head: Normocephalic. Jaw: No trismus, tenderness, swelling or pain on movement. Mouth/Throat: Mouth: Mucous membranes are moist. Pharynx: Oropharynx is clear. Uvula midline. Posterior oropharyngeal erythema present. No pharyngeal swelling, oropharyngeal exudate or uvula swelling. Eyes: Conjunctiva/sclera: Conjunctivae normal. Pupils: Pupils are equal, round, and reactive to light. Cardiovascular: Rate and Rhythm: Normal rate and regular rhythm. Heart sounds: Normal heart sounds. Pulmonary: Effort: Pulmonary effort is normal. No tachypnea, accessory muscle usage or respiratory distress. Breath sounds: Normal breath sounds. No stridor. No wheezing, rhonchi or rales. Abdominal: General: There is no distension. Palpations: Abdomen is soft. Tenderness: There is no abdominal tenderness. There is no guarding or rebound. Musculoskeletal: Cervical back: Normal range of motion and neck supple. No edema, erythema, rigidity or tenderness. No pain with movement. Normal range of motion. Lymphadenopathy: Cervical: No cervical adenopathy. Skin: General: Skin is warm and dry. Neurological: Mental Status: She is alert and oriented to person, place, and time. ASSESSMENT/PLAN: 1. Sore throat - ICD9: 462, ICD10: J02.9 (primary diagnosis) - STREP A MOLECULAR (POC) 2. Viral illness - ICD9: 079.99, ICD10: B34.9 - Discussed viral etiology and rationale for treatment. - Rapid strep negative in office today - Symptomatic treatment with prn analgesia - Supportive care with fluids and rest Patient was educated on supportive therapies. Patient will follow up with primary care provider as needed. Patient was instructed to immediately proceed to emergency room for any new, worsening, or symptoms lasting longer than anticipated. The patient's clinical presentation is otherwise unremarkable at this time. Based on exam and clinical finding, the (more content not included)... Normal [facility] STREP A MOLECULAR (POC)on Procedural Control Valid [facility] Strep A (POCT) Negative Negative [facility] CNPNon 05-20-2024 CNPN Telephone (UCWSTR) WELLINGTON ELIZABETH ([id number]) 89 F Date Time Provider Department 05/20/24 ISABEL HOPPER [facility] During your visit today, we recorded the following information about you: Allergies As of Date: 05/20/2024 Noted Allergy Reaction DIMETAPP (BROMPHENIRAMINE-PSE UDOE*04/01/2005 16 - Unknown Comments: Pt unaware. Mother reported Date Reviewed: 05/18/2024 Reviewed by: Isabel Hopper APRN.SUPERVISOR RECORD PRESS - Fully Assessed Reason for Visit: Results [95] Order(s):metroNIDAZO LE (FLAGYL) 500 mg tabletTake 1 tablet by mouth two times a day for 7 days.Disp: 14 tabletRfl: 0 Prescriptions as of 05/20/2024 - metroNIDAZOLE (FLAGYL) 500 mg tablet Take 1 tablet by mouth two times a day for 7 days. - albuterol HFA (PROAIR HFA) 90 mcg/actuation inhaler Inhale 2 Puffs as instructed every 4 hours as needed. Problem List As Of Date 05/20/2024 Noted Resolved Loss of biological parent at younger than 18 ye*08/17/2018 Patient request for diagnostic testing [Z01.89] 08/17/2018 05/11/2022 Asthma affecting in first trimester [*09/01/2018 04/16/2019 Marijuana use [F12.90] 09/04/2018 05/16/2023 History of vacuum extraction assisted delivery *08/26/2020 05/11/2022 Nausea and vomiting in [O21.9] 08/26/2020 05/11/2022 Supervision of high risk in second tr*12/25/2020 05/11/2022 Short interval between pregnancies affecting pr*09/08/2021 05/11/2022 Pelvic pain in , antepartum, first tri*09/08/2021 05/11/2022 Abnormal glucose complicating [O99.81*01/13/2022 05/11/2022 Obesity in [O99.210] 01/27/2022 05/11/2022 PUPP (pruritic urticarial papules and plaques o*02/26/2022 05/11/2022 Prescriptions ordered this encounter Disp Refills Start End METRONIDAZOLE 500 MG TABLET 14 t* 0 05/20/2024 05/27/2024 Route: ORAL Sig: Take 1 tablet by mouth two times a day for 7 days. Encounter Status:Closed by ISABEL HOPPER on 05/20/24 Normal [facility] BACTERIAL VAGINOSIS NAATon 1 07-18-2023 Lactobacillus crispatus+gasseri+jense rosa + Gardnerella vaginalis + Atopobium vaginae rRNA NATALIYA+probe Ql (Vag fld) Positive Abnormal Negative for bacterial vaginosis [facility] Comment on above: Order Comment: Speci men Type: SWAB Ordering Facility: [facility] Address: [address] [place] [address] Performed By: #### C VTV, BVAMP #### [facility] CLIA [id number] [address] [place] [address] [place] ORSE/TRICHOMONAS NAATon 1 07-18-2023 C. glabrata RNA NATALIYA+probe Ql (Vag fld) Negative Normal Negative for Rose glabrata [facility] Comment on above: Order Comment: Speci men Type: SWAB Ordering Facility: [facility] Address: [address] [place] [address] Performed By: #### C VTV, BVAMP #### [facility] CLIA [id number] [address] [place] [address] [place] Rose sp DNA NATALIYA+probe Ql (Vag fld) Negative Normal Negative for Rose species [facility] Comment on above: Order Comment: Speci men Type: SWAB Ordering Facility: [facility] Address: [address] [place] [address] Performed By: #### C VTV, BVAMP #### [facility] CLIA [id number] [address] [place] [address] [place] T. vaginalis DNA NATALIYA+probe Ql (Unsp spec) Negative Normal Negative for Trichomonas vaginalis by amplification [facility] Comment on above: Order Comment: Speci men Type: SWAB Ordering Facility: [facility] Address: [address] [place] [address] Performed By: #### C VTV, BVAMP #### [facility] CLIA [id number] [address] [place] [address] [place] CNOVon 05-18-2024 CNOV Office Visit (OBGYWM) WELL[place] ELIZABETH ([id number]) 89 F Date Time Provider Department 05/18/24 3:30 PM ISABEL HOPPER [facility] During your visit today, we recorded the following information about you: Blood pressure Weight Height Last Period 116/58 83.5 kg 1.574 m 05/03/24 Isabel Hopper APRN.SUPERVISOR RECORD PRESS 05/18/2024 3:49 PM Signed Patient declined payroll assistantGeri Rosenbaum is a 23 year old who presents for an annual gynecologic exam reported recent antibiotic use for sinus infection x2 weeks prior, current vaginal discharge, irritation used OTC monistat 05/16/2024. Menses: cycles every 25-30 days and 4-5 days of flow. Contraception: vasectomy HPV vaccine: No Last Pap: 05/21/2021 normal HPV: N/A History of abnormal pap: 08/17/2018. Last mammogram: never Sexually active: Yes Pain with intercourse: No Postcoital bleeding: No OB History T3 L3 SAB0 IAB0 Ectopic0 Multiple0 Live Births3 Environmental Services Assistant History LMP: 04/30/2023 (Exact Date), Having periods Age at Menarche: Age at First : Age at Menopause: Environmental Services Assistant History Comments: Sexual Activity: Yes; Male Contraception: Vasectomy PAST MEDICAL HISTORY Diagnosis Date Asthma PAST SURGICAL HISTORY Procedure Laterality Date PAST SURGICAL HISTORY OF wisdom teeth FAMILY HISTORY Problem Relation Age of Onset Alcohol/Drug Mother drug overdose No Known Problems Father No Known Problems Sister No Known Problems Sister No Known Problems Sister No Known Problems Brother No Known Problems Brother No Known Problems Brother No Known Problems Maternal Grandmother No Known Problems Paternal Grandmother No Known Problems Paternal Grandfather Eczema Son Eczema Daughter SOCIAL HISTORY Social History Tobacco Use Smoking status: Former Current packs/day: 0.00 Types: Cigarettes Start date: 07/20/2017 Quit date: 07/20/2018 Years since quittin.8 Passive exposure: Current Smokeless tobacco: Never Tobacco comments: social smoker Vaping Use Vaping status: Former Quit date: 09/08/2018 Substance Use Topics Alcohol use: No Drug use: No REVIEW OF SYSTEMS Abdomen: No abdominal pain, nausea, vomiting, diarrhea, or constipation. No bloating, early satiety, indigestion, or increased flatulence. Bladder: No dysuria, gross hematuria, urinary frequency, urinary urgency, or incontinence. Breast: No breast lumps, nipple d/c, overlying skin changes, redness or skin retraction. Allergies and current medication updated:Yes SENSITIVE EXAM: The sensitive examination was discussed with the Patient or Patient's Authorized Aircraft Painter. As applicable, any other physician, advance practice provider, medical student, or other health professional student that will be observing or involved in the sensitive examination for educational or training purposes was discussed with the Patient or Authorized Aircraft Painter. The Patient or Authorized Aircraft Painter has agreed to proceed with the sensitive examination. (Sensitive examination includes inspection and/or palpation of the breasts, pelvis, prostate and anorectal regions). EXAM: LMP 04/30/2023 GENERAL: pleasant, female in no apparent distress HEENT: Normocephalic, atraumatic, mucus membranes moist, and no lesions NECK: Supple, full range of motion, no adenopathy, and thyroid normal DERMATOLOGY: Normal, without lesions, non-icteric, and non-hirsute BREAST: soft, non-tender, symmetric, no dominant mass, normal nipple-areolar complex, no lymphadenopathy, and no nipple discharge CHEST: Normal inspiratory effort ABDOMEN: soft, non-tender, and no masses PELVIC: external genitalia normal, normal Bartholin's glands, urethra, Scarbro's glands, no vulvar lesions, no cervical lesions, physiologic discharge present, normal appearing perineal body and perianal region BIMANUAL: uterus normal size, shape and consistency, no adnexal masses, and non-tender RECTOVAGINAL: deferred. NEURO: alert and oriented x3,exam grossly non-focal EXTREMITIES: normal ASSESSMENT/PLAN: 1) Health maintenance: Pap done with reflex HPV. Mammogram starting age 40. Nutrition, exercise and routine health maintenance exams reviewed. Calcium/Vitamin D supplementation information provided. 2) Contraception: vasectomy. Contraceptive options reviewed and information provided. 3) STD screening: Declined STD check. 4) Follow up one year or sooner as needed 5) BV/yeast ordered Isabel Hopper APRN.SUPERVISOR RECORD PRESS Allergies As of Date: 05/18/2024 Noted Allergy Reaction DIMETAPP (BROMPHENIRAMINE-PSE UDOE*04/01/2005 16 - Unknown Comments: Pt unaware. Mother reported Date Reviewed: 05/18/2024 Reviewed by: Isabel Hopper APRN.SUPERVISOR RECORD PRESS - Fully Assessed Reason for Visit: Well Woman [1463] Primary Visit Diagnosis:Encounter for gynecological examination (general) (routine) without abnormal findings [Z (more content not included)... Normal [facility] PAP TESTon 05-18-2024 ADEQUACY Normal [facility] Comment on above: Order Comment: Speci men Type: FLUID SPECIMEN Ordering Facility: [facility] Address: [address] [place] [address] Result Comment: Sati sfactory for interpretation. No endocervical component Performed By: #### L [id number] #### [facility] CLIA [id number] [address] [place] [address] LAB CLIA [id number] [address] [place] [address] [place] CASE REPORT Normal [facility] Comment on above: Order Comment: Speci men Type: FLUID SPECIMEN Ordering Facility: [facility] Address: [address] [place] [address] Result Comment: Gyne cologic Cytology Report Case: [id number] Authorizing Provider: Isabel Hopper APRN.SUPERVISOR RECORD PRESS Collected: 05/18/2024 04:06 PM Ordering Location: OB/Gynecology Received: 05/18/2024 04:21 PM First Screen: Neal, Nicol, CT, ASCP Specimen: Pap Test, ThinPrep, Cervix Performed By: #### L [id number] #### [facility] CLIA [id number] [address] [place] [address] [place] [facility] CLIA [id number] [address] [place] [address] [place] CLINICAL HISTORY, CYTOLOGY, RAIL OPERATOR Routine Exam Normal [facility] Comment on above: Order Comment: Speci men Type: FLUID SPECIMEN Ordering Facility: [facility] Address: [address] [place] [address] Performed By: #### L [id number] #### [facility] CLIA [id number] [address] [id number] [place] [facility] CLIA [id number] [address] [place] [address] [place] CYTOLOGY PAP OTHER INT Predominance of coccobacilli consistent with shift in vaginal mayank Normal [facility] Comment on above: Order Comment: Speci men Type: FLUID SPECIMEN Ordering Facility: [facility] Address: [address] [place] [address] Performed By: #### L [id number] #### [facility] CLIA [id number] [address] [place] [address] [place] [facility] CLIA [id number] [address] [place] [address] [place] FINAL PERFORMING LAB Normal [facility] Comment on above: Order Comment: Speci men Type: FLUID SPECIMEN Ordering Facility: [facility] Address: [address] [place] [address] Result Comment: Tech nical component, ambulatory nurse screening performed at [facility], [address] [place] [address] CLIA# [id number] Diagnostic interpretation performed at [facility], [address] [id number] CLIA# [id number] Paper Bag Making Machinist: Rosana Luevano M.D. Performed By: #### L [id number] #### [facility] CLIA [id number] [address] [place] [address] [place] [facility] CLIA [id number] [address] [place] [address] [place] INTERPRETATION, CYTOLOGY, RAIL OPERATOR [facility] Comment on above: Order Comment: Speci men Type: FLUID SPECIMEN Ordering Facility: [facility] Address: [address] [place] [address] Result Comment: Nega tive for intraepithelial lesion or malignancy. Performed By: #### L [id number] #### [facility] CLIA [id number] [address] [place] [address] [place] [facility] CLIA [id number] [address] [place] [address] [place] LMP 05/03/2024 Normal [facility] Comment on above: Order Comment: Speci men Type: FLUID SPECIMEN Ordering Facility: [facility] Address: [address] [place] [address] Performed By: #### L [id number] #### [facility] CLIA [id number] [address] [place] [address] [place] [facility] CLIA [id number] [address] [place] [address] [place] PAP DISCLAIMER COMMENT The Pap Smear is a screening test for cervical cancer. False negative results occur with all screening tests, emphasizing the need for rescreening at recommended intervals, and clinical correlation. [facility] Comment on above: Order Comment: Speci men Type: FLUID SPECIMEN Ordering Facility: [facility] Address: [address] [place] [address] Performed By: #### L [id number] #### [facility] CLIA [id number] [address] [place] [address] [place] [facility] CLIA [id number] [address] [place] [address] [place] PAP BRUSH LOADER AND HANDLE ATTACHER COMMENT This specimen has been analyzed by the ThinPrep Imaging System, an automated imaging and review system, which assists the laboratory in evaluating cells on ThinPrep Pap tests. Following automated imaging, selected morris from every slide are reviewed by a ambulatory nurse. Normal [facility] Comment on above: Order Comment: Speci men Type: FLUID SPECIMEN Ordering Facility: [facility] Address: [address] [place] [address] Performed By: #### L [id number] #### [facility] CLIA [id number] [address] [place] [address] [place] [facility] CLIA [id number] [address] [facility] [place] [address] [place] ED Prov Noteon 05-07-2024 ED Prov Note ED PROVIDER NOTE [facility] EM[facility]GENCY [facility]MENT NAME: Wellington Elizabeth AGE: 23 y.o. : 2000 VISIT DATE: 05/07/2024 CSN: [id number] PCP: Chirag Temple MD Chief Complaint Patient presents with URI 23-year-old female patient comes ER for evaluation of sinus pain and pressure. Patient states has had sinus infection for 2 and half weeks, was put on a Z-Tong, symptoms briefly cleared up however returned, endorsing right-sided sinus pressure and pain, green phlegm, associated intermittent headaches. No vision changes, nausea or emesis, no neck pain or stiffness, no atypical rashes. Past Medical History: Diagnosis Date Asthma History reviewed. No pertinent surgical history. History reviewed. No pertinent family history. Social History Socioeconomic History Marital status: Single Tobacco Use Smoking status: Every Day Types: Cigarettes Smokeless tobacco: Never Vaping Use Vaping status: Some Days Substances: Nicotine Substance and Sexual Activity Alcohol use: Not Currently Drug use: Not Currently No current outpatient medications on file prior to encounter. No Known Allergies Review of Systems All other systems reviewed and are negative. Patient Vitals for the past 24 hrs: BP Temp Temp src Pulse Resp SpO2 Height Weight 05/07/24 1218 (!) 151/94 98.5 degrees F (36.9 degrees C) Temporal 92 18 97 % 5' 1 74.8 kg (165 lb) Physical Exam Vitals and nursing note reviewed. Constitutional: Appearance: Normal appearance. HENT: Head: Normocephalic and atraumatic. Right Ear: External ear normal. Left Ear: External ear normal. Nose: Nose normal. Mouth/Throat: Mouth: Mucous membranes are moist. Pharynx: Oropharynx is clear. Eyes: Extraocular Movements: Extraocular movements intact. Conjunctiva/sclera: Conjunctivae normal. Pupils: Pupils are equal, round, and reactive to light. Cardiovascular: Rate and Rhythm: Normal rate and regular rhythm. Musculoskeletal: General: Normal range of motion. Cervical back: Normal range of motion and neck supple. Pulmonary: Effort: Pulmonary effort is normal. Breath sounds: Normal breath sounds. Abdominal: General: Abdomen is flat. Bowel sounds are normal. Palpations: Abdomen is soft. Neurological: General: No focal deficit present. Mental Status: She is alert and oriented to person, place, and time. Mental status is at baseline. Psychiatric: Mood and Affect: Mood normal. Thought Content: Thought content normal. Laboratory & Radiographic Imaging (if done): No results found for this visit on 05/07/24. No orders to display Procedures Medical Decision Making Patient presents ER for sinusitis, she is otherwise well-appearing, no distress, no focal neurological deficits, visual acuity is intact, will prescribe oral antibiotics and have follow-up with ENT The patient has been informed that they may have pre-hypertension or hypertension based on a blood pressure reading in the Emergency Department. I recommend that the patient call the primary care provider listed on their discharge instructions or a physician of their choice as soon as possible to arrange follow-up in the next 4 weeks for further evaluation of possible pre-hypertension or hypertension. . Clinical Impression: No diagnosis found. ED Disposition None Follow-up Information Follow-up information has not been specified. Contact information for after-discharge care Follow-up information has not been specified. Carter Abreu MD 05/07/24 1228 AUTHENTICATED BY CARTER ABREU, ON 05/07/2024 12:28:25 Normal [facility] CBC W/Diff, Automatedon 02-15 Absolute Lymph 2.73 X10 3/uL Normal 0.83-4.51 [facility] Comment on above: Order Comment: Order Date: 02/28/24 Order Info: 0184-1 - CBCD Performed By: #### L 500.4050, L100.0100, L501.9520, L506.1000 #### [facility] [address] [place], [place], [id number] Absolute Neut 6.2 X10 3/uL Normal 2.0-7.7 [facility] Comment on above: Order Comment: Order Date: 02/28/24 Order Info: 0184-1 - CBCD Performed By: #### L 500.4050, L100.0100, L501.9520, L506.1000 #### [facility] [address] [place], [address] Basophils/100 WBC (Bld) 0.5 % Normal 0-1 [facility] Comment on above: Order Comment: Order Date: 02/28/24 Order Info: 0184-1 - CBCD Performed By: #### L 500.4050, L100.0100, L501.9520, L506.1000 #### [facility] [address] [place], [address] Eosinophils/100 WBC (Bld) 3.2 % Normal 0-5 [facility] Comment on above: Order Comment: Order Date: 02/28/24 Order Info: 0184-1 - CBCD Performed By: #### L 500.4050, L100.0100, L501.9520, L506.1000 #### [facility] [address] [place], [address] Erythrocyte distribution width (RBC) [Ratio] 11.8 % Normal 11.6-14.6 [facility] Comment on above: Order Comment: Order Date: 02/28/24 Order Info: 0184-1 - CBCD Performed By: #### L 500.4050, L100.0100, L501.9520, L506.1000 #### [facility] [address] [place], [address] Hematocrit (Bld) [Volume fraction] 41.0 % Normal 37-47 [facility] Comment on above: Order Comment: Order Date: 02/28/24 Order Info: 0184-1 - CBCD Performed By: #### L 500.4050, L100.0100, L501.9520, L506.1000 #### [facility] [address] [place], [address] Hemoglobin (Bld) [Mass/Vol] 14.1 g/dL Normal 12.0-15.0 [facility] Comment on above: Order Comment: Order Date: 02/28/24 Order Info: 0184-1 - CBCD Performed By: #### L 500.4050, L100.0100, L501.9520, L506.1000 #### [facility] [address] [place], [address] IG% 0.300 Normal 0.0-0.9 [facility] Comment on above: Order Comment: Order Date: 02/28/24 Order Info: 0184- - CBCD Result Comment: IG% - Immature Granulocytes (promyelocytes, myelocytes and metamyelocytes) > 1% indicates that a LEFT SHIFT is Present. Performed By: #### L 500.4050, L100.0100, L501.9520, L506.1000 #### [facility] [address] [place], [address] Lymphocytes/100 WBC (Bld) 27.1 % Normal 19-41 [facility] Comment on above: Order Comment: Order Date: 02/28/24 Order Info: 0184- - CBCD Performed By: #### L 500.4050, L100.0100, L501.9520, L506.1000 #### [facility] [address] [place], [address] MCH (RBC) [Entitic mass] 31.5 pg Normal 27.0-32.0 [facility] Comment on above: Order Comment: Order Date: 02/28/24 Order Info: 0184- - CBCD Performed By: #### L 500.4050, L100.0100, L501.9520, L506.1000 #### [facility] [address] [place], [address] MCHC (RBC) [Mass/Vol] 34.4 g/dL Normal 32-36 [facility] Comment on above: Order Comment: Order Date: 02/28/24 Order Info: 0184- - CBCD Performed By: #### L 500.4050, L100.0100, L501.9520, L506.1000 #### [facility] [address] [place], [address] MCV (RBC) [Entitic vol] 91.7 fL Normal 81-99 [facility] Comment on above: Order Comment: Order Date: 02/28/24 Order Info: 0184-1 - CBCD Performed By: #### L 500.4050, L100.0100, L501.9520, L506.1000 #### [facility] [address] [place], [address] Monocytes/100 WBC (Bld) 7.2 % Normal 0-10 [facility] Comment on above: Order Comment: Order Date: 02/28/24 Order Info: 018- - CBCD Performed By: #### L 500.4050, L100.0100, L501.9520, L506.1000 #### [facility] [address] [place], [address] Neutrophils/100 WBC (Bld) 61.7 % Normal 47-70 [facility] Comment on above: Order Comment: Order Date: 02/28/24 Order Info: 018- - CBCD Performed By: #### L 500.4050, L100.0100, L501.9520, L506.1000 #### [facility] [address] [place], [address] Nucleated RBC (Bld) [#/Vol] 0 10*3/uL Normal 0-5 [facility] Comment on above: Order Comment: Order Date: 02/28/24 Order Info: 0184-1 - CBCD Performed By: #### L 500.4050, L100.0100, L501.9520, L506.1000 #### [facility] [address] [place], [address] Platelet mean volume (Bld) [Entitic vol] 11.5 fL Normal 6.2-12.0 [facility] Comment on above: Order Comment: Order Date: 02/28/24 Order Info: 0184-1 - CBCD Performed By: #### L 500.4050, L100.0100, L501.9520, L506.1000 #### [facility] [address] [place], [address] Platelets (Bld) [#/Vol] 300 10*3/uL Normal 150-450 [facility] Comment on above: Order Comment: Order Date: 02/28/24 Order Info: 0184- - CBCD Performed By: #### L 500.4050, L100.0100, L501.9520, L506.1000 #### [facility] [address], [address] RBC (Bld) [#/Vol] 4.47 10*6/uL Normal 4.2-5.4 [facility] Comment on above: Order Comment: Order Date: 02/28/24 Order Info: 0184- - CBCD Performed By: #### L 500.4050, L100.0100, L501.9520, L506.1000 #### [facility] [address] [place], [address] RDW SD 39.8 fl Normal 35.1-43.9 [facility] Comment on above: Order Comment: Order Date: 02/28/24 Order Info: 0184-1 - CBCD Performed By: #### L 500.4050, L100.0100, L501.9520, L506.1000 #### [facility] [address] [place], [address] WBC (Bld) [#/Vol] 10.1 10*3/uL Normal 4.4-11.0 [facility] Comment on above: Order Comment: Order Date: 02/28/24 Order Info: 0184-1 - CBCD Performed By: #### L 500.4050, L100.0100, L501.9520, L506.1000 #### [facility] [address] [place], [address] Comprehensive Metabolic Prof ilon 02-28-2024 Albumin [Mass/Vol] 4.0 g/dL Normal 3.2-5.0 [facility] Comment on above: Order Comment: Order Date: 02/28/24 Order Info: [id number] - CMP Order Info: 3 - TSH Performed By: #### L 500.4050, L100.0100, L501.9520, L506.1000 #### [facility] [address] [place], [address] Albumin/Globulin [Mass ratio] 1.3 {ratio} Normal 0.9-2.4 [facility] Comment on above: Order Comment: Order Date: 02/28/24 Order Info: 0786-1 - CMP Order Info: 3 - TSH Performed By: #### L 500.4050, L100.0100, L501.9520, L506.1000 #### [facility] [address] [place], [address] ALK P 74 U/L Normal 45-117 [facility] Comment on above: Order Comment: Order Date: 02/28/24 Order Info: 0786-1 - CMP Order Info: 3 - TSH Performed By: #### L 500.4050, L100.0100, L501.9520, L506.1000 #### [facility] [address] [place], [address] ALT [Catalytic activity/Vol] 18 U/L Normal 13-56 [facility] Comment on above: Order Comment: Order Date: 02/28/24 Order Info: 0786-1 - CMP Order Info: 301-3 - TSH Performed By: #### L 500.4050, L100.0100, L501.9520, L506.1000 #### [facility] [address] [place], [address] AST [Catalytic activity/Vol] 13 U/L Low 15-37 [facility] Comment on above: Order Comment: Order Date: 02/28/24 Order Info: 0786- - CMP Order Info: 30163 - TSH Performed By: #### L 500.4050, L100.0100, L501.9520, L506.1000 #### [facility] [address] [place], [address] Bilirubin [Mass/Vol] 0.30 mg/dL Normal 0.20-1.00 [facility] Comment on above: Order Comment: Order Date: 02/28/24 Order Info: 0786- - CMP Order Info: 3 - TSH Result Comment: For patients on eltrombopag therapy, use of Dimension [place] TBIL is not recommended. Performed By: #### L 500.4050, L100.0100, L501.9520, L506.1000 #### [facility] [address] [place], [address] BUN/CRE 13.8 RATIO Normal 10-20 [facility] Comment on above: Order Comment: Order Date: 02/28/24 Order Info: 0786- - CMP Order Info: 3013 - TSH Performed By: #### L 500.4050, L100.0100, L501.9520, L506.1000 #### [facility] [address] [place], [address] CA,Total 8.9 mg/dL Normal 8.5-10.1 [facility] Comment on above: Order Comment: Order Date: 02/28/24 Order Info: 0786-1 - CMP Order Info: 3016-3 - TSH Performed By: #### L 500.4050, L100.0100, L501.9520, L506.1000 #### [facility] [address] [place], [address] Chloride [Moles/Vol] 106 mmol/L Normal 98-107 [facility] Comment on above: Order Comment: Order Date: 02/28/24 Order Info: 0786-1 - CMP Order Info: 6-3 - TSH Performed By: #### L 500.4050, L100.0100, L501.9520, L506.1000 #### [facility] [address] [place], [address] CO2 [Moles/Vol] 26.0 mmol/L Normal 21.0-32.0 [facility] Comment on above: Order Comment: Order Date: 02/28/24 Order Info: 0786- - CMP Order Info: 3015-3 - TSH Performed By: #### L 500.4050, L100.0100, L501.9520, L506.1000 #### [facility] [address] [place], [address] Creatinine [Mass/Vol] 0.65 mg/dL Normal 0.55-1.02 [facility] Comment on above: Order Comment: Order Date: 02/28/24 Order Info: 0786- - CMP Order Info: 301-3 - TSH Result Comment: The validity of the calculated GFR GFRAA in patients over 70 years has not been determined. Clinical correlation is essential. Performed By: #### L 500.4050, L100.0100, L501.9520, L506.1000 #### [facility] [address] [place], [address] EST GFR - AA 143 mL/min Normal >60 [facility] Comment on above: Order Comment: Order Date: 02/28/24 Order Info: 0786-1 - CMP Order Info: 3016-3 - TSH Result Comment: Afri can Ivorian GFR Calc Performed By: #### L 500.4050, L100.0100, L501.9520, L506.1000 #### [facility] [address] [place], [address] GAP 5 Normal 5-15 [facility] Comment on above: Order Comment: Order Date: 02/28/24 Order Info: 0786- - CMP Order Info: 3015-09 - TSH Performed By: #### L 500.4050, L100.0100, L501.9520, L506.1000 #### [facility] [address] [place], [address] GFR/1.73 sq M.predicted among non-blacks MDRD (S/P/Bld) [Vol rate/Area] 118 mL/min/{1.73_m2} Normal >60 [facility] Comment on above: Order Comment: Order Date: 02/28/24 Order Info: 07 - [facility] Order Info: 3015-09 - TSH Result Comment: Non- GFR Calc Performed By: #### L 500.4050, L100.0100, L501.9520, L506.1000 #### [facility] [address] [place], [address] Globulin (S) [Mass/Vol] 3.1 g/dL Normal 2.2-4.2 [facility] Comment on above: Order Comment: Order Date: 02/28/24 Order Info: 0786 - [facility] Order Info: 3015-09 - TSH Performed By: #### L 500.4050, L100.0100, L501.9520, L506.1000 #### [facility] [address] [place], [address] Glucose [Mass/Vol] 130 mg/dL High 74-106 [facility] Comment on above: Order Comment: Order Date: 02/28/24 Order Info: 0786-1 - [facility] Order Info: 3015-09 - TSH Result Comment: Fast ing Glucose result greater than or equal to 126 mg/dL suggests DIABETES MELLITUS per A.D.A. criteria. Performed By: #### L 500.4050, L100.0100, L501.9520, L506.1000 #### [facility] [address] [place], [address] Potassium [Moles/Vol] 3.6 mmol/L Normal 3.5-5.1 [facility] Comment on above: Order Comment: Order Date: 02/28/24 Order Info: 0786-1 - CMP Order Info: 3016-3 - TSH Performed By: #### L 500.4050, L100.0100, L501.9520, L506.1000 #### [facility] [address] [place], [address] Sodium [Moles/Vol] 137 mmol/L Normal 136-145 [facility] Comment on above: Order Comment: Order Date: 02/28/24 Order Info: 0786-1 - CMP Order Info: 3015-3 - TSH Performed By: #### L 500.4050, L100.0100, L501.9520, L506.1000 #### [facility] [address] [place], [address] T PROT 7.1 g/dL Normal 6.4-8.2 [facility] Comment on above: Order Comment: Order Date: 02/28/24 Order Info: 0786-1 - CMP Order Info: 3015-3 - TSH Performed By: #### L 500.4050, L100.0100, L501.9520, L506.1000 #### [facility] [address] [place], [address] Urea nitrogen [Mass/Vol] 9 mg/dL Normal 7-18 [facility] Comment on above: Order Comment: Order Date: 02/28/24 Order Info: 0786-1 - CMP Order Info: 3016-3 - TSH Performed By: #### L 500.4050, L100.0100, L501.9520, L506.1000 #### [facility] [address] [place], [address] Thyroid Stim Hormone (TSH)on 02-28-2024 TSH 0.803 uIU/mL Normal 0.358-3.740 [facility] Comment on above: Order Comment: Order Date: 02/28/24 Order Info: 0786-1 - CMP Order Info: 3016-3 - TSH Performed By: #### L 500.4050, L100.0100, L501.9520, L506.1000 #### [facility] [address] [place], [address] Vitamin D,25 Hydroxyon 02-27 Vitamin D 25-OH 43.3 ng/mL Normal [facility] Comment on above: Order Comment: Order Date: 02/28/24 Order Info: [id number] - VITD25 Result Comment: Ami min D 25(OH) Status Range Deficiency <20 ng/mL (50nmol/L) Insufficiency 20 - 30 ng/mL (50 - 75 nmol/L) Sufficiency 30 - 100 ng/mL (75 - 250 nmol/L) Toxicity >100 ng/mL (>250 nmol/L) Performed By: #### L 500.4050, L100.0100, L501.9520, L506.1000 #### [facility] [address] [place], [address] ED Prov Noteon 02-27-2024 ED Prov Note ED PROVIDER NOTE [facility] EMERGENCY DEPARTMENT NAME: Wellington Elizabeth AGE: 23 y.o. : 2000 VISIT DATE: 02/27/2024 CSN: [id number] PCP: Chirag Temple MD Chief Complaint Patient presents with Dizziness Patient is a 23-year-old female with a past medical history of asthma who presents today for concern of lightheadedness and dizziness. Patient states over the last few months she is experienced episodes where she develops significant lightheadedness dizziness heart palpitations numbness in her fingers and toes and lower extremity weakness. Patient states with this episodes occur she lays on the floor and does some deep breathing exercises which theodora her discomfort. Patient states he is episodes have been increasing recently. Patient states she had a similar episode on and today around 130 had another similar episode where she was able to control her symptoms by laying flat with deep breathing exercises. Patient denies any current symptoms including chest pain, shortness of breath, history of DVT/PE, pleurisy, hemoptysis, lightheadedness, dizziness, syncope or additional focal neurological deficit. Patient states she has significant amount of anxiety as she has 3 young children at home. Patient not taking anxiety medication. Patient denies any suicidal ideation, homicidal ideation or active hallucinations. Past Medical History: Diagnosis Date Asthma History reviewed. No pertinent surgical history. History reviewed. No pertinent family history. Social History Socioeconomic History Marital status: Single Tobacco Use Smoking status: Every Day Types: Cigarettes Smokeless tobacco: Never Vaping Use Vaping status: Every Day Substances: Nicotine Substance and Sexual Activity Alcohol use: Not Currently Drug use: Not Currently No current outpatient medications on file prior to encounter. No Known Allergies Review of Systems Constitutional: Negative for chills and fever. Eyes: Negative for pain. Respiratory: Negative for cough, chest tightness and shortness of breath. Cardiovascular: Negative for chest pain and palpitations. Gastrointestinal: Negative for abdominal pain, nausea and vomiting. Genitourinary: Negative for flank pain. Musculoskeletal: Negative for arthralgias and myalgias. Skin: Negative for rash. Neurological: Negative for dizziness, syncope, light-headedness and headaches. Psychiatric/Behavior al: Negative for agitation. The patient is nervous/anxious. All other systems reviewed and are negative. Patient Vitals for the past 24 hrs: BP Temp Temp src Pulse Resp SpO2 Height Weight 02/27/24 1745 (!) 151/91 97.9 degrees F (36.6 degrees C) Temporal 85 16 98 % 5' 1 77.1 kg (170 lb) Physical Exam Vitals and nursing note reviewed. Constitutional: Appearance: Normal appearance. HENT: Head: Normocephalic. Eyes: Pupils: Pupils are equal, round, and reactive to light. Cardiovascular: Rate and Rhythm: Normal rate and regular rhythm. Pulses: Normal pulses. Heart sounds: Normal heart sounds. Musculoskeletal: Cervical back: Normal range of motion. Pulmonary: Effort: Pulmonary effort is normal. Breath sounds: Normal breath sounds. Skin: General: Skin is warm. Capillary Refill: Capillary refill takes less than 2 seconds. Neurological: General: No focal deficit present. Mental Status: She is alert. Psychiatric: Comments: Appears anxious. . Laboratory & Radiographic Imaging (if done): Results for orders placed or performed during the hospital encounter of 02/27/24 EKG 12-lead Result Value Ref Range Ventricular Rate 66 BPM Atrial Rate 66 BPM P-R Interval 150 ms QRS Duration 82 ms Q-T Interval 370 ms QTC Calculation (Bezet) 387 ms P [place] 52 degrees R [place] 60 degrees T [place] 23 degrees No orders to display Procedures Medical Decision Making Patient was seen and evaluated for concern of lightheaded dizziness numbness to the fingers and toes. EKG demonstrated evidence of normal sinus rhythm with a heart rate of 66 with no evidence of arrhythmia. Patient remained asymptomatic while in the emergency department. Patient was educated that her symptoms are likely related to underlying anxiety disorder patient was referred to primary care doctor for possible anxiety medication. Patient educated on reasons return to ED for repeat evaluation agrees to do so patient was discharged stable condition. ED Course as of 02/27/242217Feb 27, [id number] EKG interpreted by myself on 02/27/2024 at 17: 59. Normal sinus rhythm, normal axis, no STEMI. Heart rate 66, [place] interval 150, QRS 82, QTc 387. No STEMI [NH] ED Course User Index [NH] Ivan Washington, The patient has been informed that they may have pre-hypertension or hypertension based on a blood pressure reading in the Emergency Department. I recommend that the patient call the primary care provider (more content not included)... Normal [facility] POCT Group A Streptococcus, PCR manually resultedon 12-28-2023 S. pyogenes DNA NATALIYA+probe Ql (Throat) Not detected Not Detected [facility] Work Phone: [facility] Work Phone: POCT SARS-COV-2/FLU/RSV PCR SYMPTOMATIC manually resultedon 12-28-2023 FLUAV RNA NATALIYA+probe Ql (Resp) Not detected Not Detected [facility] Work Phone: FLUBV RNA NATALIYA+probe Ql (Resp) Not detected Not Detected [facility] Work Phone: Interpretation and review of laboratory results Normal [facility] Work Phone: RSV RNA NATALIYA+probe Ql (Resp) Not detected Not Detected [facility] Work Phone: SARS-CoV-2 (COVID-19) RNA NATALIYA+probe Ql (Resp) Not detected Not Detected [facility] Work Phone: [facility] Work Phone: Absolute lymphocyte counton 03-30-2022 Lymphocytes Auto (Unsp spec) [#/Vol] 2.68 10*3/uL 0.83-4.51 [facility] Work Phone: Basophil percentageon 2021 Basophils/100 WBC (Bld) 0.3 % 0-1 [facility] Work Phone: [phone] Eosinophils/100 WBC (Bld) 1.9 % 0-5 [facility] Work Phone: Neutrophils (Bld) [#/Vol] 11.4 10*3/uL 2.0-7.7 [facility] Work Phone: Neutrophils/100 WBC (Bld) 71.1 % 47-70 [facility] Work Phone: WBC (Bld) [#/Vol] 16.0 10*3/uL 4.4-11.0 [facility] Work Phone: Blood erythrocytes count (nu mber/volume)on 03-30-2022 RBC (Bld) [#/Vol] 3.95 10*6/uL 4.2-5.4 [facility] Work Phone: Blood hemoglobin measurement (mass/volume)on 03-30-2022 Hemoglobin (Bld) [Mass/Vol] 11.7 g/dL 12.0-15.0 [facility] Work Phone: Blood lymphocytes/100 leukoc yteson 03-30-2022 Lymphocytes/100 WBC (Bld) 16.8 % 19-41 [facility] Work Phone: Blood monocytes/100 leukocyt eson 03-30-2022 Monocytes/100 WBC (Bld) 9.3 % 0-10 [facility] Work Phone: Blood platelet mean volumeon 03-30-2022 Platelet mean volume (Bld) [Entitic vol] 10.7 fL 6.2-12.0 [facility] Work Phone: Determination of erythrocyte mean corpuscular volume (MCV)on 03-30-2022 MCV (RBC) [Entitic vol] 88.1 fL 81-99 [facility] Work Phone: [phone] Hematocrit Auto (Bld) [Volum e fraction]on 03-30-2022 Hematocrit (Bld) [Volume fraction] 34.8 % 37-47 [facility] Work Phone: Laboratory - Hematology and Cell countson 03-30-2022 Erythrocyte distribution width (RBC) [Entitic vol] 44.8 fL 35.1-43.9 [facility] Work Phone: [phone] Erythrocyte distribution width (RBC) [Ratio] 14.0 % 11.6-14.6 [facility] Work Phone: [phone] Immature granulocytes/100 WBC (Bld) 0.600 % 0.0-0.9 [facility] Work Phone: [phone] Comment on above: IG% - Immature Granu locytes (promyelocytes, myelocytes and metamyelocytes) > 1% indicates that a LEFT SHIFT is Present. MCH (RBC) [Entitic mass] 29.6 pg 27.0-32.0 [facility] Work Phone: [phone] Nucleated RBC/100 WBC (Bld) [Ratio] 0 % 0-5 [facility] Work Phone: [phone] MCHC Auto (RBC) [Mass/Vol]on 03-30-2022 MCHC (RBC) [Mass/Vol] 33.6 g/dL 32-36 [facility] Work Phone: No Panel Informationon 03-30 Vaginal Amniotic Fluid Detection Positive Negative [facility] Work Phone: Comment on above: Amniotic fluid prese nt indicates rupture of Membranes. RESULTS CALLED TO PARRIS BARAHONA RN (WP) 03/30/22 Noreen Aguirre.REPORT READ BACK BY SAME . Platelets bldon 03-30-2022 Platelets (Bld) [#/Vol] 351 10*3/uL 150-450 [facility] Work Phone: URINE OB DIP B/Oon 2 Glucose Ql (U) Negative Neg mg/dL [facility] Protein.monoclonal (U) [Mass/Vol] Negative Neg mg/dL [facility] URINE OB DIP B/Oon 2 Glucose Ql (U) Negative Neg mg/dL [facility] Protein.monoclonal (U) [Mass/Vol] Negative Neg mg/dL [facility] URINE OB DIP B/Oon 2 Glucose Ql (U) Negative Neg mg/dL [facility] Protein.monoclonal (U) [Mass/Vol] Negative Neg mg/dL [facility] OBSTETRIC ULTRASOUND WHIon 0 11-19-2021 [facility] URINE OB DIP B/Oon 2 Glucose Ql (U) Negative Neg mg/dL [facility] Protein.monoclonal (U) [Mass/Vol] Negative Neg mg/dL [facility] CNOVon 05-01-2021 CNOV Office Visit (DEAN) WELLINGTON ELIZABETH ([id number]) 89 F Date Time Provider Department 05/01/21 2:00 PM TIGIST CASTILLO During your visit today, we recorded the following information about you: Weight Height 77.1 kg 1.549 m Tigist Castillo MD 05/01/2021 5:03 PM Signed [facility] INITIAL CONSULT NAME: Wellington Elizabeth CHIEF COMPLAINT: Wellington Elizabeth is a 20 year old White Not female who is s/p with first degree perineal laceration and left labial laceration who is here for a consultation requested by Alona Maciel APRN.CNM for an opinion regarding wound dehiscence and vaginal pain. HISTORY OF PRESENT ILLNESS Pt reports she has been having pain with healing, sutures came undone 5 days . She also had BV which was treated. She is doing sitz baths and still painful. Using topical lidocaine. No stool softeners any longer. Obstetric History: Date of delivery: 03/26/21 Most recent delivery: Weight of the baby: 6 lbs 10oz Laceration or episiotomy: 1st degree and left labial [facility] How long did you push?: 1 hour Did you perform regular perineal massage in the third trimester of your ?: No Previous deliveries: Yes Previous deliveries: VAVD Any previous third or fourth degree lacerations/tears into anal sphincter?: no Any previous history of episiotomy?: No Weight of largest baby: 7lbs 7oz # 1 - Date: 04/06/19, Sex: Male, Weight: 3.374 kg (7 lb 7 oz), GA: 39w2d, Delivery: Vaginal, Vacuum (Extractor), Apgar1: None, Apgar5: None, Living: Living, Comments: Vacuum Assisted for maternal exaustion, EBL 500ml, 2nd degree perineal laceration, Apgars 8/9 # 2 - Date: 03/26/21, Sex: Female, Weight: 3.005 kg (6 lb 10 oz), GA: 37w6d, Delivery: Vaginal, Spontaneous, Apgar1: None, Apgar5: None, Living: Living, Comments: spontaneous labor, EBL 350mL, 1st degree perineal and left labial lacerations, loose nuchal cord x1 Is there anything else we should know about your delivery?: none How are you feeding your baby: . Are you having any problems? No Have you had pain since your delivery? Yes. Has the pain resolved? No. There is still pain with: Sitting. Are you taking anything for the pain? Ibuprofen Are you soaking your bottom (sitz bath)? Yes, 2 times per day. Are you taking anything to soften your stools? No Have your menstrual periods started? No LMP: Patient's last menstrual period was 07/04/2020 (exact date). Are you doing/using anything to prevent ? No - Abstaining Have you resumed intercourse since your delivery? No - Abstaining Did you have any pain with intercourse prior to your ? No [place] Scale Score: 0 Have you ever been diagnosed with depression or anxiety? No Urinary Symptoms: Are you leaking urine? No Did you leak urine during your ? No Did you leak urine before your ? Yes LADARIUS-6 Do you experience, and if so, how much are you bothered by frequent urination: 0- Not at all Do you experience, and if so, how much are you bothered by urine leakage related to a feeling of urgency? 0- Not at all Do you experience, and if so, how much are you bothered by urine leakage related to physical activity, coughing or sneezing? 1- Slightly Do you experience, and if so, how much are you bothered by small amounts of urine leakage (drops)? 0- Not at all Do you experience, and if so, how much are you bothered by difficulty emptying your bladder? 0- Not at all Do you experience, and if so, how much are you bothered by pain or discomfort in the lower abdominal or genital area? 1- Slightly LADARIUS-6 Score: 2 Pain: Justin Pain Questionnaire- Short Form Overall Pain Index (VAS): 51 mm Persistent Pain Index (PPI): 2- Discomforting Did you have any vulvar or vaginal pain prior to your ? No Defecatory Symptoms: Are you leaking stool? No Did you leak stool during your ? No Did you leak stool before your ? No Are you leaking flatus (gas)? No Did you leak gas during your ? No Did you leak gas before your ? No [place] Stool Chart stool type in last 7 days: Type 3: Like a sausage but with cracks on its surface Fecal Incontinence Severity Score: FISI Gas: (0) Never Mucus: (0) Never Liquid stool: (0) Never Solid stool: (0) Never FISI Score: 0 Do you leak stool while trying to get to the toilet? No Do you leak stool when you have no sensation that you need to defecate? No Do you leak stool only after having a bowel movement? No Do you wear a pad because of stool leakage? No Do you have fecal urgency? No Health History: PAST MEDICAL HISTORY Diagnosis Date - Asthma PAST SURGICAL HISTORY Procedure Laterality Date - PAST SURGICAL HISTORY OF wisdom teeth F (more content not included)... Normal [facility] XR Chest PA and Lateralon IMPRESSION: No acute radiographic abnormality. Programming Specialist: GERALD Transcribe Date/Time: Jul 28 2020 8:17A Dictated by : TATY STAPLES MD This examination was interpreted and the report reviewed and electronically signed by: TATY STAPLES MD on Jul 28 2020 8:19AM [facility] DIVISION OF RADIOLOGY * * *Final Report* * * DATE OF EXAM: Jul 28 2020 8:09AM WOX [id number] - XR CHEST 2V FRONTAL/LAT / PROCEDURE REASON: multiple diagnoses * * * * Physician Interpretation * * * * EXAMINATION: CHEST RADIOGRAPH (2 VIEW FRONTAL & LATERAL) CLINICAL HISTORY: Cough Wheezing MQ: XC2_6 EXAM DATE/TIME: 07/28/2020 8:09 AM COMPARISON: No relevant prior studies available. RESULT: Lines, tubes, and devices: None. Lungs and pleura: No consolidation. No lung mass. No pleural effusion. No pneumothorax. Cardiomediastinal silhouette: Normal cardiomediastinal silhouette. Bones and soft tissues: Unremarkable. DIVISION OF RADIOLOGY Provider, [facility] [place] - 07/28/2020 * * *Final Report* * * DATE OF EXAM: Jul 28 2020 8:09AM WOX 5291 - XR CHEST 2V FRONTAL/LAT / PROCEDURE REASON: multiple diagnoses * * * * Physician Interpretation * * * * EXAMINATION: CHEST RADIOGRAPH (2 VIEW FRONTAL & LATERAL) CLINICAL HISTORY: Cough Wheezing MQ: XC2_6 EXAM DATE/TIME: 07/28/2020 8:09 AM COMPARISON: No relevant prior studies available. RESULT: Lines, tubes, and devices: None. Lungs and pleura: No consolidation. No lung mass. No pleural effusion. No pneumothorax. Cardiomediastinal silhouette: Normal cardiomediastinal silhouette. Bones and soft tissues: Unremarkable. IMPRESSION IMPRESSION: No acute radiographic abnormality. Programming Specialist: GERALD Transcribe Date/Time: Jul 28 2020 8:17A Dictated by : TATY STAPLES MD This examination was interpreted and the report reviewed and electronically signed by: TATY STAPLES MD on Jul 28 2020 8:19AM [facility] Radiology Study observation (narrative) Car Ramírez XR Chest PA and LateralOrder ed By: Cc Provider on 07-28-2020 [facility] CORONAVIRUS 2019 BY PCRon CORONAVIRUS 2019,PCR NOT DETECTED Normal Not Detected [facility] Comment on above: Result Comment: . This assay is designed to detect the N, ORF1ab and/or S genes of SARS-CoV-2 via nucleic acid amplification. A Negative (NOT DETECTED) result does not preclude 2019-nCoV infection since the adequacy of sample collection and/or low viral burden may result in presence of viral nucleic acids below the clinical sensitivity of this test method. Negative (NOT DETECTED) result should not be used as the sole basis for treatment or other patient management decisions. Rather negative results should be combined with clinical observations, patient history, and epidemiological information to make patient management decisions. Fact sheet for providers: https://www.fda.gov/media/751921/download Fact sheet for patients: https://www.fda.gov/media/698164/download This test has received FDA Emergency Use Authorization (EUA) and has been verified by [facility] ([facility]). This test is only authorized for the duration of time that circumstances exist to justify the authorization of the emergency use of in vitro diagnostic tests for the detection of SARS-CoV-2 virus and/or diagnosis of COVID-19 infection under section 564(b)(1) of the Act, 21 U.S.C. 360bbb-3(b)(1), unless the authorization is terminated or revoked sooner. [facility] is certified under CLIA-88 as qualified to perform high complexity testing. Testing is performed in the [facility] laboratories located at [address] [place] [address]. Performed By: #### C OV19 #### [place] [address] CORONAVIRUS 2019 BY PCRon DATE OF SYMPTOM ONSET [[id number]]? [id number] Normal [facility] Comment on above: Performed By: #### C OV19 #### [place] [address] EMPLOYED IN HEALTHCARE? Unknown Normal [facility] Comment on above: Performed By: #### C OV19 #### [place] [address] FIRST COVID NASAL SWAB TEST? Unknown [facility] Comment on above: Performed By: #### C OV19 #### [facility] [address] [place] [address] HOSPITALIZED (OR PLANNED TO BE ADMITTED)? Yes [facility] Comment on above: Performed By: #### C OV19 #### [facility] [address] [place] [address] ICU? No [facility] Comment on above: Performed By: #### C OV19 #### [facility] [address] [place] [address] ? Unknown [facility] Comment on above: Performed By: #### C OV19 #### [facility] [address] [place] [address] RESIDENT IN CONGREGATE CARE SETTING? Unknown [facility] Comment on above: Performed By: #### C OV19 #### [facility] [address] [place] [address] SYMPTOMATIC DEFINED BY CDC? Yes [facility] Comment on above: Performed By: #### C OV19 #### [facility] [address] [place] [address] Lab Specimen Source Nasal, Nasopharyngeal [facility] Comment on above: Performed By: #### C OV19 #### [facility] [address] [place] [address] Provider Note - ED v2on 05-19 Provider Note - ED v2 Provider Note - ED v2: Chart Review HISTORY OF PRESENTING ILLNESS WELLINGTON is a 19 year old Female and was seen by me at 09-Jun-2020 11:31 for a chief complaint of (Sore throat). Other complaints include: Presents for evaluation of throat swelling and pain. 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 Pain is exacerbated by oral intake. Pt did not attempt any OTC meds or conservative measures. No fever, chills, vomiting, URI symptoms, or other constitutional S/S. No other complaints. . Triage Information: Most recent Vital Sign Value Date PAST MEDICAL HISTORY ATTESTATION: I have reviewed and confirmed nurse's/medic's notes for patient's medications, allergies, medical history, and surgical history ALLERGIES/INTOLERANC ES: No Known Allergies HEALTH HISTORY: No documented data. OUTPATIENT MEDICATIONS: Home Medications Review Status for Reconciliation: Complete Med Status: No Current Medications SIGNIFICANT EVENTS: Past Medical History Description:NONE PER PT Past Surgical History Description:NONE PER PT BRIDGE OPERATOR SLIP: Is : no Is : no REVIEW OF SYSTEMS REVIEW OF SYSTEMS: Comments Review of Systems Constitutional: See HPI ENT: See HPI Respiratory: No shortness of breath, No cough. Neurologic: Alert and oriented X4, No numbness, No tingling. All other systems are negative PHYSICAL EXAM CONSTITUTIONAL: Well appearing, well nourished, awake, alert, oriented to person, place, time/situation and in no apparent distress. HENMT: Airway patent, ears with clear tympanic membranes bilaterally. Nasal mucosa clear. Mouth with normal mucosa. Throat has no vesicles, no oropharyngeal exudates and uvula is midline. Face with no lymph node enlargement. EYES: Clear bilaterally, pupils equal, round and reactive to light. MUSCULOSKELETAL: Spine appears normal, range of motion is not limited, no muscle or joint tenderness. NEUROLOGICAL: Alert and oriented, no focal deficits, no motor or sensory deficits. SKIN: Skin normal color for race, warm, dry and intact. No evidence of trauma. MEDICAL DECISION MAKING/ED COURSE MDM/ED COURSE: Exam is fairly unremarkable. Prescription for Z-Tong for exposure to strep. Patient requesting Covid swab as well; this was obtained. Patient instructed to isolate until results become available. Patient's clinical presentation is otherwise unremarkable at this time. Patient is discharged with instructions to follow-up with primary care or seek emergency medical attention for worsening symptoms or any new concerns. CLINICAL IMPRESSION Diagnosis/Annotation : ED Dx Name:Acute pharyngitis Code:J02.9 Disposition: discharged Type: home ATTESTATION CRITICAL CARE TIME Is this a critically ill patient: no Electronic Signatures for Addendum Section: Saji Cam (PAC) (Signed Addendum 10-Jun-2020 09:15) covid (-). called pt with results. Electronic Signatures: Saji Cam (PAC) (Signed 10-Jun-2020 09:14) Authored: HPI, PMH, ROS, PE, MDM/ED Course, Clinical Impression, Attestation, Chart Review, Scores Last Updated: 10-Jun-2020 09:15 by Saji Cam (PAC) Normal [facility] Urine Cultureon 12-18-2019 Bacteria identified Cx Nom (U) Urine Culture: <10,000 CFU/ml of Normal skin/urogenital mayank present Source: URINE Collected: 12/18/19 13:18 Site: Received : 12/18/19 15:01 Urine Culture FINAL 12/20/19 07:48 <10,000 CFU/ml of Normal skin/urogenital mayank present Normal [facility] Comment on above: Performed By: #### U RINE #### [place] [address] Vital Signs Date Time Vital Sign Value Performing Clinician Facility 07-05-2024 19:53-0500 Body mass index (BMI) [Ratio] 34.87 kg/m2 Sami Calles BOWLING BALL GRADER.SUPERVISOR RECORD PRESS Work Phone: [facility] 07-05-2024 19:53-0500 Body temperature 99.1 [degF] Sami Calles BOWLING BALL GRADER.SUPERVISOR RECORD PRESS Work Phone: [facility] 07-05-2024 19:53-0500 Body weight 86.4 kg Sami Calles BOWLING BALL GRADER.SUPERVISOR RECORD PRESS Work Phone: [facility] 07-05-2024 19:53-0500 Diastolic blood pressure 78 mm[Hg] Sami Calles BOWLING BALL GRADER.SUPERVISOR RECORD PRESS Work Phone: [facility] 07-05-2024 19:53-0500 Heart rate 88 /min Sami Calles BOWLING BALL GRADER.SUPERVISOR RECORD PRESS Work Phone: [facility] 07-05-2024 19:53-0500 Respiratory rate 18 /min Sami Calles BOWLING BALL GRADER.SUPERVISOR RECORD PRESS Work Phone: [facility] 07-05-2024 19:53-0500 SaO2% (BldA) [Mass fraction] 99 % Sami Calles BOWLING BALL GRADER.SUPERVISOR RECORD PRESS Work Phone: [facility] 07-05-2024 19:53-0500 Systolic blood pressure 123 mm[Hg] Sami Calles BOWLING BALL GRADER.SUPERVISOR RECORD PRESS Work Phone: [facility] 05-18-2024 15:33-0400 Body height 157.4 cm Isabel Evelyn BOWLING BALL GRADER.SUPERVISOR RECORD PRESS Work Phone: [facility] 05-18-2024 15:33-0400 Body mass index (BMI) [Ratio] 33.69 kg/m2 Isabel Springfield BOWLING BALL GRADER.SUPERVISOR RECORD PRESS Work Phone: [facility] 05-18-2024 15:33-0400 Body weight 83.46 kg Isabel Evelyn BOWLING BALL GRADER.SUPERVISOR RECORD PRESS Work Phone: [facility] 05-18-2024 15:33-0400 Diastolic blood pressure 58 mm[Hg] Isabel Evelyn BOWLING BALL GRADER.SUPERVISOR RECORD PRESS Work Phone: [facility] 05-18-2024 15:33-0400 Systolic blood pressure 116 mm[Hg] Isabel Springfield BOWLING BALL GRADER.SUPERVISOR RECORD PRESS Work Phone: [facility] 12-28-2023 12:25-0400 Body height 152.4 cm Landry Burden BOWLING BALL GRADER-SUPERVISOR RECORD PRESS Work Phone: [facility] 12-28-2023 12:25-0400 Body mass index (BMI) [Ratio] 32.22 kg/m2 Landry Burden BOWLING BALL GRADER-SUPERVISOR RECORD PRESS Work Phone: [facility] 12-28-2023 12:25-0400 Body temperature 98.6 [degF] Landry Brownenienriqueta BOWLING BALL GRADER-SUPERVISOR RECORD PRESS Work Phone: [facility] 12-28-2023 12:25-0400 Body weight 74.84 kg Landry Burden BOWLING BALL GRADER-SUPERVISOR RECORD PRESS Work Phone: [facility] 12-28-2023 12:25-0400 Diastolic blood pressure 91 mm[Hg] Landry Brownenienriqueta BOWLING BALL GRADER-SUPERVISOR RECORD PRESS Work Phone: [facility] 12-28-2023 12:25-0400 Heart rate 86 /min Landry Burden BOWLING BALL GRADER-SUPERVISOR RECORD PRESS Work Phone: [facility] 12-28-2023 12:25-0400 Respiratory rate 14 /min Landry Burden BOWLING BALL GRADER-SUPERVISOR RECORD PRESS Work Phone: [facility] 12-28-2023 12:25-0400 SaO2% (BldA) [Mass fraction] 96 % Landry Burden BOWLING BALL GRADER-SUPERVISOR RECORD PRESS Work Phone: [facility] 12-28-2023 12:25-0400 Systolic blood pressure 143 mm[Hg] Landry Burden BOWLING BALL GRADER-SUPERVISOR RECORD PRESS Work Phone: [facility] 05-11-2022 08:55-0400 Body weight 86 kg Isabel Springfield BOWLING BALL GRADER.SUPERVISOR RECORD PRESS Work Phone: [facility] 05-11-2022 08:55-0400 Diastolic blood pressure 68 mm[Hg] Isabel Evelyn BOWLING BALL GRADER.SUPERVISOR RECORD PRESS Work Phone: [facility] 05-11-2022 08:55-0400 Systolic blood pressure 108 mm[Hg] Isabel Springfield BOWLING BALL GRADER.SUPERVISOR RECORD PRESS Work Phone: [facility] 04-06-2022 14:22-0400 Body weight 87.54 kg Lui Waterman MD Work Phone: [facility] 04-06-2022 14:22-0400 Diastolic blood pressure 60 mm[Hg] Lui Waterman MD Work Phone: [facility] 04-06-2022 14:22-0400 Systolic blood pressure 108 mm[Hg] Lui Waterman MD Work Phone: [facility] 03-31-2022 19:42-0400 Body temperature 97.3 [degF] [facility] Work Phone: 03-31-2022 19:42-0400 Diastolic blood pressure 72 mm[Hg] [facility] Work Phone: 03-31-2022 19:42-0400 Heart rate 69 /min [facility] Work Phone: 03-31-2022 19:42-0400 Respiratory rate 16 /min [facility] Work Phone: 03-31-2022 19:42-0400 SaO2% (BldA) [Mass fraction] 99 % [facility] Work Phone: 03-31-2022 19:42-0400 Systolic blood pressure 130 mm[Hg] [facility] Work Phone: 03-30-2022 16:54-0400 Body height 154.94 cm [facility] Work Phone: 03-30-2022 16:54-0400 Body mass index (BMI) [Ratio] 39.1 kg/m2 [facility] Work Phone: 03-30-2022 16:54-0400 Body weight 94 kg [facility] Work Phone: 03-25-2022 08:24-0400 Body weight 93.62 kg Lui Waterman MD Work Phone: [facility] 03-25-2022 08:24-0400 Diastolic blood pressure 72 mm[Hg] Lui Waterman MD Work Phone: [facility] 03-25-2022 08:24-0400 Systolic blood pressure 102 mm[Hg] Lui Waterman MD Work Phone: [facility] 02-26-2022 08:36-0400 Body weight 91.99 kg Emerson Mujica MD Work Phone: [facility] 02-26-2022 08:36-0400 Diastolic blood pressure 64 mm[Hg] Emerson Mujica MD Work Phone: [facility] 02-26-2022 08:36-0400 Systolic blood pressure 100 mm[Hg] Emerson Mujica MD Work Phone: [facility] 01-19-2022 14:30-0400 Body weight 89.36 kg Cee Bradshaw APRN.CNM Work Phone: [facility] 01-19-2022 14:30-0400 Diastolic blood pressure 60 mm[Hg] Cee Plotts BOWLING BALL GRADER.CNM Work Phone: [facility] 01-19-2022 14:30-0400 Systolic blood pressure 124 mm[Hg] Cee Bradshaw BOWLING BALL GRADER.CNM Work Phone: [facility] 01-13-2022 08:45-0400 Body weight 89.18 kg Emerson Mujica MD Work Phone: [facility] 01-13-2022 08:45-0400 Diastolic blood pressure 66 mm[Hg] Emerson Mujica MD Work Phone: [facility] 01-13-2022 08:45-0400 Systolic blood pressure 102 mm[Hg] Emerson Mujica MD Work Phone: [facility] 11-19-2021 09:01-0400 Body weight 83.01 kg Emerson Mujica MD Work Phone: [facility] 11-19-2021 09:01-0400 Diastolic blood pressure 60 mm[Hg] Emerson Mujica MD Work Phone: [facility] 11-19-2021 09:01-0400 Systolic blood pressure 100 mm[Hg] Emerson Mujica MD Work Phone: [facility] Encounters Encounter Date Encounter Type Care Provider Facility Start: 10-29-2024 End: 10-29-2024 ambulatory Chirag Temple MD Work Phone: [facility] Work Phone: Start: 10-29-2024 End: 10-29-[address] Chirag Temple MD -Laboratory, [facility] Start: 10-29-2024 End: 10-29-2024 ambulatory Chirag Temple Facility:[facility] Start: 10-24-2024 End: 10-24-2024 Emergency department patient visit CHIRAG TEMPLE [facility] Start: 08-24-2024 End: 08-24-2024 Emergency department patient visit IVAN WASHINGTON [facility] Start: 07-05-2024 End: 07-05-2024 ambulatory CHRIAG TEMPLE Facility:[facility] Start: 07-05-2024 End: 07-05-2024 Office outpatient visit 15 minutes Sami Stevan BOWLING BALL GRADER.SUPERVISOR RECORD PRESS Work Phone: [facility] Comment on above: Sore throat (Primary Dx); Viral illness Start: 05-20-2024 End: 05-20-2024 Telephone encounter Isabel Hopper BOWLING BALL GRADER.SUPERVISOR RECORD PRESS Work Phone: [facility] Comment on above: Results Start: 05-18-2024 End: 05-18-2024 ambulatory ISABEL HOPPER Facility:[facility] Start: 05-18-2024 End: 05-18-2024 Patient encounter procedure Isabel Hopper BOWLING BALL GRADER.SUPERVISOR RECORD PRESS Work Phone: OB/Gynecology Comment on above: Encounter for gyneco logical examination (general) (routine) without abnormal findings (Primary Dx); Screening for cervical cancer; Encounter for screening for human papillomavirus (HPV); Vaginal discharge Start: 05-18-2024 End: 05-18-2024 Patient encounter status Isabel Hopper BOWLING BALL GRADER.SUPERVISOR RECORD PRESS Work Phone: [facility] Start: 05-07-2024 End: 05-07-2024 Emergency department patient visit [facility] Start: 02-28-2024 End: 02-28-2024 ambulatory [facility] Facility:[facility] Start: 02-27-2024 End: 02-27-2024 Emergency department patient visit IVAN PERRY [facility] Start: 02-27-2024 End: 02-27-2024 Emergency department patient visit Ed Physician Provider Facility:[facility] Start: 12-28-2023 End: 12-28-2023 Patient encounter procedure Landry Burden BOWLING BALL GRADER-SUPERVISOR RECORD PRESS Work Phone: [facility] Comment on above: Acute upper respirat ory infection (Primary Dx) Start: 12-28-2023 End: 12-28-2023 ambulatory LANDRY BURDEN [facility] Start: 06-17-2022 Telephone encounter Cee moses BOWLING BALL GRADER.CNM Work Phone: OB/Gynecology Comment on above: Diarrhea Start: 05-11-2022 End: 05-11-2022 Patient encounter procedure Isabel Greercalf ANA LAURA Work Phone: OB/Gynecology Comment on above: care and examination (Primary Dx); Encounter for initial prescription of contraceptive pills Start: 04-20-2022 ambulatory [facility] Provider OB/Gynecol lamar Comment on above: Doppler Start: 04-20-2022 E-mail encounter fro m caregiver [facility] Provider [facility] Start: 04-06-2022 End: 04-06-2022 Patient encounter procedure Lui Waterman MD Work Phone: OB/Gynecology Comment on above: care and examination of lactating mother (Primary Dx) Start: 03-31-2022 ambulatory Radha Hall MD Work Phone: OB/Gynecology Comment on above: Ob Delivery Note Start: 03-30-2022 End: 03-31-2022 [facility] and management [facility] Start: 03-30-2022 Telephone encounter Radha Hall MD Work Phone: OB/Gynecology Comment on above: Jonas Landaverde Start: 03-25-2022 End: 03-25-2022 Patient encounter procedure Lui Waterman MD Work Phone: OB/Gynecology Comment on above: Supervision of high risk in third trimester (Primary Dx); PUPP (pruritic urticarial papules and plaques of ); 36 weeks gestation of Start: 03-12-2022 End: 03-12-2022 Patient encounter procedure Sheryl Burton MD Work Phone: OB/Gynecology Comment on above: Supervision of high risk in third trimester (Primary Dx); PUPP (pruritic urticarial papules and plaques of ); 34 weeks gestation of Start: 02-26-2022 End: 02-26-2022 Patient encounter procedure Emerson Mujica MD Work Phone: OB/Gynecology Comment on above: 32 weeks gestation o f (Primary Dx); Supervision of high risk in third trimester; PUPP (pruritic urticarial papules and plaques of ) Start: 02-17-2022 Telephone encounter Alona mcintosh BOWLING BALL GRADER.CNM Work Phone: OB/Gynecology Comment on above: Received Outside Med ical Records Start: 02-11-2022 End: 02-11-2022 Patient encounter procedure Alona Maciel BOWLING BALL GRADER.CNM Work Phone: OB/Gynecology Comment on above: 31 weeks gestation o f (Primary Dx) Start: 02-01-2022 Telephone encounter Emerson multani MD Work Phone: OB/Gynecology Comment on above: Patient Question Start: 01-27-2022 Telephone encounter Alona mcintosh BOWLING BALL GRADER.CNM Work Phone: OB/Gynecology Comment on above: Care Start: 01-19-2022 End: 01-19-2022 Patient encounter procedure Cee Bradshaw BOWLING BALL GRADER.CNM Work Phone: OB/Gynecology Comment on above: 27 weeks gestation o f (Primary Dx); Irritant dermatitis; Yeast dermatitis Start: 01-18-2022 ambulatory Emerson Alvarez Work Phone: OB/Gynecology Comment on above: Antifungal cream Start: 01-14-2022 Telephone encounter Emerson multani MD Work Phone: OB/Gynecology Comment on above: 3 HR GTT Order Insurance Authorizat ion Start: 01-13-2022 Telephone encounter Emerson multani MD Work Phone: OB/Gynecology Comment on above: Orders Start: 01-13-2022 End: 01-13-2022 Patient encounter procedure Emerson Mujica MD Work Phone: OB/Gynecology Comment on above: 26 weeks gestation o f (Primary Dx); Supervision of other normal , antepartum; Marijuana use; Yeast dermatitis Start: 12-16-2021 End: 12-16-2021 Patient encounter procedure Emerson Mujica MD Work Phone: OB/Gynecology Comment on above: 22 weeks gestation o f (Primary Dx); Supervision of other normal , antepartum Start: 11-19-2021 End: 11-19-2021 Patient encounter procedure Cecilia Morales MD Work Phone: Maternal Medicine Comment on above: Encounter for anatomic survey (Primary Dx); 18 weeks gestation of ; Obesity complicating , second trimester 18 weeks gestation o f (Primary Dx) Start: 11-12-2021 Telephone encounter Cee moses APRN.CNM Work Phone: OB/Gynecology Comment on above: Patient Update Start: 10-21-2021 ambulatory Emerson Alvarez Work Phone: OB/Gynecology Comment on above: Second trimester scr eenings Start: 10-16-2021 End: 10-16-2021 Patient encounter procedure Emerson Mujica MD Work Phone: OB/Gynecology Comment on above: 13 weeks gestation o f (Primary Dx); Supervision of other normal , antepartum Start: 08-26-2020 Patient requested procedure Emerson Mujica MD Work Phone: [facility] Work Phone: Start: 07-28-2020 End: 07-28-2020 Subsequent hospital visit by physician Xr [facility] [place] Work Phone: Radiology Comment on above: Cough [R05] Start: 08-17-2018 End: 05-11-2022 Patient requested procedure Xr [place] Work Phone: [facility] Procedures Date Procedure Procedure Detail Performing Clinician Start: 07-05-2024 STREP A MOLECULAR (POC) Sami Calles BOWLING BALL GRADER.SUPERVISOR RECORD PRESS Work Phone: Start: 12-28-2023 POCT SARS-COV-2/FLU/ RSV PCR SYMPTOMATIC Landry Burden BOWLING BALL GRADER-SUPERVISOR RECORD PRESS Work Phone: Start: 12-28-2023 Iadna streptococcus group a amplified probe tq Landry Burden BOWLING BALL GRADER-SUPERVISOR RECORD PRESS Work Phone: Start: 03-25-2022 URINE OB DIP B/O Lui Waterman MD Work Phone: Start: 02-26-2022 URINE OB DIP B/O Emerson mosley MD Work Phone: Start: 01-13-2022 URINE OB DIP B/O Emerson mosley MD Work Phone: Start: 11-19-2021 URINE OB DIP B/O Emerson mosley MD Work Phone: Start: 11-19-2021 Us preg uterus after 1st trimest 07/18 gestation Emerson Mujica MD Work Phone: Start: 07-28-2020 Radiologic exam ches t 2 views Tigist Sadler BOWLING BALL GRADER.SUPERVISOR RECORD PRESS Work Phone: Viral antigen assay Plan of Treatment Date Care Activity Detail Author Start: 11-23-2049 Zoster Vaccines (1 of 2) Zoster Vacc dawood (1 of 2) [facility] Start: 01-22-2031 DTaP/Tdap/Td Vaccine s (8 - Td or Tdap) DTaP/Tdap/Td Vaccines (8 - Td or Tdap) [facility] Start: 01-22-2031 Urine microalbumin profile [facility] Start: 05-18-2027 Screening for malign ant neoplasm of cervix Cervical Cancer Screening [facility] Start: 05-24-2025 End: 05-24-2025 Patient encounter procedure 05/24/2025 3:30 PM EST Office Visit OB/Gynecology [address] [place] [address] Isabel Hopper, BOWLING BALL GRADER.SUPERVISOR RECORD PRESS [address] [place] [address] Annual OB/Gynecology Comment on above: Annual Start: 05-18-2024 End: 05-18-2024 Patient encounter procedure 05/18/2024 3:30 PM EDT Office Visit OB/Gynecology [address] [place] [address] Isabel Hopper, BOWLING BALL GRADER.SUPERVISOR RECORD PRESS [address] [place] [address] Annual OB/Gynecology Comment on above: Annual Start: 05-12-2024 PAP TESTING PAP TESTING [facility] Start: 05-12-2024 Screening for malign ant neoplasm of cervix Cervical Cancer Screening [facility] Start: 03-18-2024 Covid-19 Vaccine ( season) Covid-19 Vaccine () [facility] Start: 03-18-2024 Influenza vaccination [facility] Start: 03-18-2023 COVID-19 Vaccine ( season) COVID-19 Vaccine () [facility] Start: 09-17-2022 CHLAMYDIA SCREENING () CHLAMYDIA SCREENING () [facility] Start: 09-17-2022 GC (GONORRHEA) SCREE AUDREY () GC (GONORRHEA) SCREENING () [facility] [facility] Start: 03-31-2022 Patient discharge [facility] Work Phone: Start: 03-30-2022 Administration of medication [facility] Work Phone: Start: 03-30-2022 Application of ice collar, cap or bag [facility] Work Phone: Start: 03-30-2022 Catheterization of vein [facility] Work Phone: Start: 03-30-2022 Introduction of urin arpan catheter [facility] Work Phone: Start: 03-30-2022 Measuring intake and output [facility] Work Phone: Start: 03-30-2022 Notification of physician [facility] Work Phone: Start: 03-30-2022 Procedure discontinued [facility] Work Phone: Start: 03-30-2022 Provision of activit y privileges [facility] Work Phone: Start: 03-30-2022 Vital signs measurements [facility] Work Phone: Start: 03-30-2022 [facility] Work Phone: Start: 03-30-2022 Admission procedure [facility] Work Phone: Start: 03-18-2022 Influenza vaccination [facility] Start: 01-14-2022 End: 03-16-2022 GEST GLUC RODRIGO, 3-HR, 100 GM, FASTING GEST GLUC RODRIGO, 3-HR, 100 GM, FASTING Lab Routine Elevated glucose tolerance test Expected: 01/14/2022, Expires: 03/16/2022 [facility] Work Phone: Comment on above: Expected: 01/14/2022 , Expires: 03/16/2022 Start: 12-16-2021 End: 02-15-2022 CBC panel - Blood by Automated count CBC Lab Routine 22 weeks gestation of Supervision of other normal , antepartum Expected: 12/16/2021, Expires: 02/15/2022 [facility] Work Phone: Comment on above: Expected: 12/16/2021 , Expires: 02/15/2022 Start: 12-16-2021 End: 02-15-2022 GEST GLUC SCREEN, 1-HR, 50 GM, NON-FASTING GEST GLUC SCREEN, 1-HR, 50 GM, NON-FASTING Lab Routine 22 weeks gestation of Supervision of other normal , antepartum Expected: 12/16/2021, Expires: 02/15/2022 [facility] Work Phone: Comment on above: Expected: 12/16/2021 , Expires: 02/15/2022 Start: 12-16-2021 End: 02-15-2022 TYPE + SCREEN TYPE + SCREEN Blood Bank Routine 22 weeks gestation of Supervision of other normal , antepartum Expected: 12/16/2021, Expires: 02/15/2022 [facility] Work Phone: Comment on above: Expected: 12/16/2021 , Expires: 02/15/2022 Start: 07-18-2021 DEPRESSION ASSESSMENT DEPRESSION ASS ESSMENT [facility] Start: 11-23-2020 Screening for malign ant neoplasm of cervix [facility] Start: 11-23-2017 Anxiety Screening Anxiety Screening [facility] Start: 11-23-2017 Depression Screening Depression Scre ening [facility] Start: 11-23-2017 Hepatitis C screening Hepatitis C [facility] Start: 03-28-2017 HPV Vaccine (3 - 3-d ose series) HPV Vaccine (3 - 3-dose series) [facility] Start: 02-17-2017 HPV Vaccines (3 - 3- dose series) HPV Vaccines (3 - 3-dose series) [facility] Start: 2015 Meningococcal B Vacc ine: Consider Based On Risk (1 of 2 - Patient Seeks Protection) Meningococcal B Vaccine: Consider Based On Risk (1 of 2 - Patient Seeks Protection) [facility] Start: 11-23-2013 PEDS TO ADULT TRANSI TION ANNUAL ASSESSMENT PEDS TO ADULT TRANSITION ANNUAL ASSESSMENT [facility] Start: 05-02-2012 Varicella vaccination Varicell a Vaccines (2 of 2 - 2-dose childhood series) [facility] Start: 2011 Adult depression screening assessment DEPRESSION SCREENING [facility] Start: 2011 PEDS TO ADULT TRANSI TION INITIAL DISCUSSION PEDS TO ADULT TRANSITION INITIAL DISCUSSION [facility] Start: 11-23-2010 HPV VACCINE (1 - 2-d ose series) HPV VACCINE (1 - 2-dose series) [facility] Start: 11-23-2009 MENINGOCOCCAL B: Con efficiency engineer based on risk (1 of 2 - Risk Bexsero 2-dose series) MENINGOCOCCAL B: Consider based on risk (1 of 2 - Risk Bexsero 2-dose series) [facility] Start: 11-23-2005 Pneumococcal Vaccine : Pediatrics (0 to 5 Years) and At-Risk Patients (6 to 64 Years) (1 of 2 - PCV) Pneumococcal Vaccine: Pediatrics (0 to 5 Years) and At-Risk Patients (6 to 64 Years) (1 of 2 - PCV) [facility] Start: 11-23-2004 COVID-19 VACCINE (#1) COVID-19 VACCI NE (#1) [facility] Start: 11-23-2004 COVID-19 VACCINE (1) COVID-19 VACCIN E (1) [facility] Start: 04-24-2004 HEPATITIS B (3 of 3 - 3-dose series) HEPATITIS B (3 of 3 - 3-dose series) [facility] Start: 05-26-2000 COVID-19 VACCINE (#1) COVID-19 VACCI NE (#1) [facility] Start: 1999 HIV screening HIV Screening [facility] Start: 1999 Lipid panel Lipid Panel [facility] Start: 1999 [facility]OSIS NAAT BACTERI AL VAGINOSIS NAAT Lab Routine Vaginal discharge 05/18/2024 4:06 PM EDT [facility] ROSE/TRICHOMONAS NAAT ROSE /TRICHOMONAS NAAT Lab Routine Vaginal discharge 05/18/2024 4:06 PM EDT [facility] OBSTETRIC ULTRASOUND WHI OBSTETR IC ULTRASOUND WHI Anc Imaging Routine Obesity in Ordered: 01/29/2022 [facility] Work Phone: Comment on above: Ordered: 01/29/2022 PAP TEST PAP TEST Lab Prakash alanis Encounter for gynecological examination (general) (routine) without abnormal findings Screening for cervical cancer Encounter for screening for human papillomavirus (HPV) 05/18/2024 4:06 PM EDT [facility] Work Phone: Patient Education After a Vaginal [facility] Work Phone: Patient referral [facility] Work Phone: ROUTINE, GR OUP B STREP PCR ROUTINE, GROUP B STREP PCR Microbiology Routine Supervision of high risk in third trimester 36 weeks gestation of Ordered: 03/25/2022 [facility] Work Phone: Comment on above: Ordered: 03/25/2022 URINE OB DIP B/O URINE OB DIP B/ O Lab Routine 27 weeks gestation of Ordered: 01/19/2022 [facility] Work Phone: Comment on above: Ordered: 01/19/2022 [facility] Immunizations Immunization Date Immunization Notes Care Provider Melissa schulte 01-22-2021 tetanus toxoid, redu trisha diphtheria toxoid, and acellular pertussis vaccine, adsorbed Emerson Mujica MD Work Phone: [facility] 05-29-2019 influenza, injectabl e, quadrivalent, contains preservative Emerson Mujica MD Work Phone: [facility] 05-29-2019 influenza virus vaccine, unspecified formulation Landry Aiyana BOWLING BALL GRADER-SUPERVISOR RECORD PRESS Work Phone: [facility] Work Phone: 02-13-2019 tetanus toxoid, redu trisha diphtheria toxoid, and acellular pertussis vaccine, adsorbed Emerson Mujica MD Work Phone: [facility] 11-25-2016 HPV, unspecified formulation [facility] B[employer]LING BALL GRADER-SUPERVISOR RECORD PRESS Work Phone: [facility] Work Phone: 06-26-2004 varicella virus vaccine Morg an KevinO Entregadorenriqueta BOWLING BALL GRADER-SUPERVISOR RECORD PRESS Work Phone: [facility] Work Phone: 02-28-2004 diphtheria, tetanus toxoids and acellular pertussis vaccine Emerson Mujica MD Work Phone: [facility] Work Phone: 02-28-2004 hepatitis B vaccine, pediatric or pediatric/adolescent dosage Emerson Mujica MD Work Phone: [facility] Work Phone: 02-28-2004 measles, mumps and rubella virus vaccine Emreson Mujica MD Work Phone: [facility] Work Phone: 02-28-2004 poliovirus vaccine, inactivated Emerson Mujica MD Work Phone: [facility] Work Phone: 02-28-2004 hepatitis B vaccine, unspecified formulation Emerson Mujica MD Work Phone: [facility] 11-11-2000 diphtheria, tetanus toxoids and acellular pertussis vaccine Emerson Mujica MD Work Phone: [facility] Work Phone: 11-11-2000 haemophilus influenz ae type b vaccine, HbOC conjugate Emerson Mujica MD Work Phone: [facility] Work Phone: 11-11-2000 hepatitis B vaccine, pediatric or pediatric/adolescent dosage Emerson Mujica MD Work Phone: [facility] Work Phone: 11-11-2000 poliovirus vaccine, inactivated Emerson Mujica MD Work Phone: [facility] Work Phone: 06-13-2000 diphtheria, tetanus toxoids and acellular pertussis vaccine Emerson Mujica MD Work Phone: [facility] Work Phone: 06-13-2000 haemophilus influenz ae type b vaccine, HbOC conjugate Emerson Mujica MD Work Phone: [facility] Work Phone: 06-13-2000 poliovirus vaccine, inactivated Emerson Mujica MD Work Phone: [facility] Work Phone: 01-20-2000 diphtheria, tetanus toxoids and acellular pertussis vaccine Emerson Mujica MD Work Phone: [facility] Work Phone: 01-20-2000 haemophilus influenz ae type b vaccine, HbOC conjugate Emerson Mujica MD Work Phone: [facility] Work Phone: 01-20-2000 poliovirus vaccine, inactivated Emerson Mujica MD Work Phone: [facility] Work Phone: Payers Date Payer Category Payer Self-pay [id number] 2024 Unknown [id number] 2021 Unknown [facility] [id number] 2021-Present [address] [place] [address] [id number] 2021 Unknown [id number] 2017 Medicaid [employer] [facility] [id number] 2017-Present [phone] [address] [place] [address] Medicaid [id number] 2017 Medicaid [id number] 1999 Unknown [id number] 1999 Unknown [id number] 1999 Unknown [id number] 1999 Unknown [id number] 1999 Unknown [id number] Unknown [facility] [id number] Unknown [id number] Unknown [id number] Unknown [id number] Social History Date Type Detail Facility Start: 08-17-2018 End: 05-18-2024 Tobacco smoking status NHIS Ex-smoker [facility] Work Phone: Start: 07-20-2017 End: 07-20-2018 History of tobacco use Current smoker [facility] Work Phone: Start: 08-17-2018 End: 05-18-2024 Tobacco use and exposure Smokeless tobacco non-user [facility] Work Phone: Start: 09-17-2021 End: 07-05-2024 Alcohol intake Current non-drinker of alcohol (finding) [facility] Start: 08-26-2020 Education 16 [facility] Start: 08-17-2018 End: 03-25-2022 Tobacco Comment social smoker [facility] Start: 07-28-2021 [facility] Start: 1999 Sex Assigned At Female [facility] Work Phone: Start: 08-18-2021 End: 12-28-2023 Exposure to SARS-CoV-2 (event) Not sure [facility] Start: 07-20-2017 End: 07-20-2018 History of tobacco use Cigarette Smoker [facility] Work Phone: Start: 03-30-2022 Tobacco smoking stat [facility] Unknown if ever smoked [facility] Work Phone: Start: 05-29-[address] [facility] Start: 05-29-[address] [facility] Start: 1999 Sex assigned at Not on file [facility] Work Phone: Start: 07-28-2020 End: 05-18-2024 Gender identity Not on file [facility] Work Phone: Start: 07-28-2020 End: 05-18-2024 History of Social function [facility] National Score (1-100), lower number is lower risk Not on file [facility] Start: 10-20-2018 Gender identity Identifies as female gender (finding) [facility] Start: 06-28-2020 End: 07-28-2020 Exposure to SARS-CoV-2 (event) Yes [facility] History of tobacco use Passive smoker [facility] Start: 05-24-2022 Tobacco smoking stat us MEIS Never smoked tobacco (finding) [facility] Start: 11-01-2024 Sex Female (finding) [facility] Medical Equipment Procedure Code Equipment Code Equipment Original Text Equipment Identifier Dates Start: 01-13-2022 End: 03-12-2022 Comment on above: 1 Strip four times d aily. Use as instructed 1 Each four times da jean-claude. Use as instructed Goals Date Patient Goal Desired Activity /State Clinical Notes 09-01-2018 to 07-05-2024 Patient InstructionsSami Calles APRN.[facility] - 07/05/2024 7:55 PM Isabel Luna APRN.SUPERVISOR RECORD PRESS - 05/18/2024 3:22 PM EDTMorgan Daniella KevinmounaABDULLAHI-SUPERVISOR RECORD PRESS - 12/28/2023 12:10 PM EDTPatient Instructions Note Date & Type Note Facility 07-05-2024 Instructions Sami Calles APRN.CNP - 07/05/2024 8:02 PM EST [facility] PATIENT INFO PHARYNGITIS OVERVIEW A sore throat (pharyngitis) is a common problem, and usually is caused by a viral or bacterial infection. Sore throat usually resolves on its own without complications in adults, although it is important to know when to seek medical attention. Viruses can cause a sore throat and other upper respiratory infections, such as the common cold. Sore throat caused by a virus is not treated with antibiotics, but instead may be treated with rest, pain medication, and other therapies aimed at relieving symptoms. Strep throat is a particular kind of pharyngitis that is caused by a bacterium known as group A streptococcus (GAS). Strep throat is treated with a course of antibiotics. SORE THROAT SYMPTOMS Viral pharyngitis -- Most people with a sore throat have a virus. The most common viruses are those that cause upper respiratory infections, such as the common cold. Symptoms of a viral infection can include: A runny or congested nose Irritation or redness of the eyes Cough, hoarseness, or soreness in the roof of the mouth Some viruses cause a fever and can make you feel quite ill. Strep throat -- Approximately 10 percent of adults with a sore throat have strep throat. Signs and symptoms of strep throat include the following: Pain in the throat Fever (temperature greater than 100.4 F or 38 C) Enlarged lymph glands in the neck White patches of pus on the side or back of the throat No cough, runny nose, or irritation/redness of the eyes Other infections -- Many other less common but more serious infections can cause a sore throat, including mononucleosis (mono), influenza (the flu), N. gonococcus (gonorrhea), human immunodeficiency virus (HIV), and others. When to seek urgent help -- See your doctor or nurse immediately if you have a sore throat along with any of the following: Difficulty breathing Skin rash Drooling because you cannot swallow Swelling of the neck or tongue Stiff neck or difficulty opening the mouth SORE THROAT DIAGNOSIS Most people with a sore throat get better without treatment. There is no specific treatment for a sore throat caused by usual cold viruses. Is it strep or not? -- A combination of symptoms (fever, enlarged glands in the neck, white patches on your tonsils, and no cough) can help in determining if you have strep. If you have two or more symptoms, a rapid test or throat culture may be done. People with fewer than two symptoms usually do not need testing or treatment for strep throat. Rapid test -- The rapid test determines if there are streptococcus bacteria on a throat swab. The test can be done in a clinician's office and the results are available within a few minutes. The test is accurate in most cases, although a small percentage of tests are falsely negative (the bacteria are present but the test is negative). Throat culture -- A throat culture involves swabbing the throat, sending the swab to a laboratory, and waiting 24 to 48 hours for the results. Throat cultures are slightly more accurate than the rapid test. TREATMENT OF SORE THROAT Sore throat treatment -- Antibiotics do not help throat pain caused by a virus and are not recommended. Sore throat caused by viral infections usually lasts four to five days. During this time, treatments to reduce pain may be helpful. Several therapies can help to relieve throat pain. Pain medication -- You can treat your throat pain with a mild pain reliever such as acetaminophen (Tylenol ) or a non-steroidal anti-inflammatory agent such as ibuprofen or naproxen (Motrin or Aleve ). Oral rinses -- Salt-water gargles are an old stand-by for throat pain. It is not clear that salt water works to relieve pain, but it is unlikely to be harmful. Most recipes suggest 1/4 to 1/2 teaspoon of salt per one cup (8 ounces) of warm water. Sprays -- Sprays containing topical anesthetics (eg, benzocaine, phenol) are available to treat sore throat. However, such sprays are no more effective than sucking on hard candy. Lozenges -- A variety of lozenges (cough drops) are available to treat throat pain or relieve dryness. However, it is not clear that lozenges work any better than other forms of hard candy, which are generally less expensive. Other treatments -- Other treatments that may help with throat pain include sipping warm beverages (eg, honey or lemon tea, chicken soup), cold beverages, or eating cold or frozen desserts (eg, ice cream, popsicles). Alternative therapies -- Health food stores, vitamin outlets, and Internet Web sites offer alternative treatments for relief of sore throat pain. We do not recommend these type of treatments due to the risks of contamination with pesticides/herbicides, inaccurate labeling and dosing information, and a lack of studies showing that these treatments are safe and effective. Strep throat -- Although strep throat typically resolves on its own within two to five days, treatment with antibiotics is recommended for adults whose rapid test or throat culture is positive for strep throat. Penicillin, or an antibiotic related to penicillin, is the treatment of choice for strep throat. It is usually given in pill or liquid form two to four times per day for 10 days. A one time injection of penicillin is also available. People who are allergic to penicillin are given an alternate antibiotic. It is important to finish the entire course of treatment to completely eliminate the infection. If symptoms do not begin to improve or worsen by three days of antibiotic treatment, you should see your doctor or nurse again. Return to work/school -- If you have been diagnosed with strep throat, stay home from work or school until you have completed 24 hours of antibiotics. Within 24 hours of beginning antibiotic treatment, you will feel better and will be less contagious [1]. If you have a sore throat (not diagnosed as strep), you may participate in your usual activities as soon as you feel well. SORE THROAT PREVENTION Hand washing is an essential and highly effective way to prevent the spread of infection. Wet your hands with water and plain soap, and rub them together for 15 to 30 seconds. Pay special attention to the fingernails, between the fingers, and the wrists. Rinse your hands thoroughly, and dry them with a clean towel. Alcohol-based hand rubs are a good alternative for disinfecting hands if a sink is not available. Hand rubs should be spread over the entire surface of hands, fingers, and wrists until dry, and may be used several times. These rubs can be used repeatedly without skin irritation or loss of effectiveness. Hand rubs are available as a liquid or wipe in small, portable sizes that are easy to carry in a pocket or handbag. When a sink is available, visibly soiled hands should be washed with soap and water. Wash your hands after coughing, blowing the nose, or sneezing. While it is not always possible to avoid being near a person who is sick, avoiding touching your eyes, nose, or mouth to prevent the spread of infection. In addition, tissues should be used to cover the mouth when sneezing or coughing. These used tissues should be disposed of promptly. Sneezing/coughing into your sleeve (at the inner elbow) is another way to contain sprays of saliva and secretions and will not contaminate your hand documented in this encounter [facility] 07-05-2024 Note HNO ID: [id number] Author: SAMI CALLES APRN.SUPERVISOR RECORD PRESS Service: ? Author Type: Nurse Practitioner Type: Progress Notes Filed: 07/05/2024 20:07 Note Text: Subjective HPI Nontoxic-appearing female presents urgent care chief complaint pharyngitis headache. Duration of symptoms 3 days. Associated symptoms listed above. Presents today for evaluation. Most prominent symptom today is sore throat. OTC medications none. No difficulty swallowing and secretion decreased range of motion of neck. Denies chance is not breast-feeding. Past medical history prescription medications allergies reviewed. .Patient presents with: Sore Throat: KIM x3 days PAST MEDICAL HISTORY Diagnosis Date Asthma PAST SURGICAL HISTORY Procedure Laterality Date PAST SURGICAL HISTORY OF wisdom teeth ALLERGIES Dimetapp [Brompheniramine-Pseudoephedrin ] MEDICATIONS albuterol HFA (PROAIR HFA) 90 mcg/actuation inhaler Inhale 2 Puffs as instructed every 4 hours as needed. FAMILY HISTORY Problem Relation Age of Onset Alcohol/Drug Mother drug overdose No Known Problems Father No Known Problems Sister No Known Problems Sister No Known Problems Sister No Known Problems Brother No Known Problems Brother No Known Problems Brother No Known Problems Maternal Grandmother No Known Problems Paternal Grandmother No Known Problems Paternal Grandfather Eczema Son Eczema Daughter Social History Tobacco Use Smoking status: Former Current packs/day: 0.00 Types: Cigarettes Start date: 07/20/2017 Quit date: 07/20/2018 Years since quittin.9 Passive exposure: Current Smokeless tobacco: Never Tobacco comments: social smoker Vaping Use Vaping status: Some Days Last attempt to quit: 09/08/2018 Substance Use Topics Alcohol use: No Drug use: No BP 123/78 Pulse 88 Temp 37.3 ?C (99.1 ?F) Resp 18 Wt 86.4 kg (190 lb 7.6 oz) LMP 05/03/2024 (Exact Date) SpO2 99% No BMI 34.87 kg/m? Review of Systems Constitutional: Negative for chills, fever and malaise/fatigue. HENT: Positive for sore throat. Negative for congestion, ear discharge, ear pain and sinus pain. Eyes: Negative for blurred vision, pain, discharge and redness. Respiratory: Negative for cough, hemoptysis, sputum production, shortness of breath, wheezing and stridor. Cardiovascular: Negative for chest pain. Gastrointestinal: Negative for abdominal pain, diarrhea, nausea and vomiting. Musculoskeletal: Negative for myalgias. Skin: Negative for itching and rash. Neurological: Positive for headaches. Negative for dizziness. Objective Physical Exam Constitutional: General: She is not in acute distress. Appearance: She is not diaphoretic. HENT: Head: Normocephalic. Jaw: No trismus, tenderness, swelling or pain on movement. Mouth/Throat: Mouth: Mucous membranes are moist. Pharynx: Oropharynx is clear. Uvula midline. Posterior oropharyngeal erythema present. No pharyngeal swelling, oropharyngeal exudate or uvula swelling. Eyes: Conjunctiva/sclera: Conjunctivae normal. Pupils: Pupils are equal, round, and reactive to light. Cardiovascular: Rate and Rhythm: Normal rate and regular rhythm. Heart sounds: Normal heart sounds. Pulmonary: Effort: Pulmonary effort is normal. No tachypnea, accessory muscle usage or respiratory distress. Breath sounds: Normal breath sounds. No stridor. No wheezing, rhonchi or rales. Abdominal: General: There is no distension. Palpations: Abdomen is soft. Tenderness: There is no abdominal tenderness. There is no guarding or rebound. Musculoskeletal: Cervical back: Normal range of motion and neck supple. No edema, erythema, rigidity or tenderness. No pain with movement. Normal range of motion. Lymphadenopathy: Cervical: No cervical adenopathy. Skin: General: Skin is warm and dry. Neurological: Mental Status: She is alert and oriented to person, place, and time. ASSESSMENT/PLAN: 1. Sore throat - ICD9: 462, ICD10: J02.9 (primary diagnosis) - STREP A MOLECULAR (POC) 2. Viral illness - ICD9: 079.99, ICD10: B34.9 - Discussed viral etiology and rationale for treatment. - Rapid strep negative in office today - Symptomatic treatment with prn analgesia - Supportive care with fluids and rest Patient was educated on supportive therapies. Patient will follow up with primary care provider as needed. Patient was instructed to immediately proceed to emergency room for any new, worsening, or symptoms lasting longer than anticipated. The patient's clinical presentation is otherwise unremarkable at this time. Based on exam and clinical finding, the patient is stable for discharge. Plan of care was discussed with patient. Patient verbalizes understanding and agrees to plan of care. This note was generated using APImetrics software. It may contain errors in wording, punctuation, or spelling. Sami Calles APRN.[facility] [place] 07-05-2024 History of Presen t illness Narrative Subjective HPI Nontoxic-appearing female presents urgent care chief complaint pharyngitis headache. Duration of symptoms 3 days. Associated symptoms listed above. Presents today for evaluation. Most prominent symptom today is sore throat. OTC medications none. No difficulty swallowing and secretion decreased range of motion of neck. Denies chance is not breast-feeding. Past medical history prescription medications allergies reviewed. .Patient presents with: Sore Throat: KIM x3 days PAST MEDICAL HISTORY Diagnosis Date Asthma PAST SURGICAL HISTORY Procedure Laterality Date PAST SURGICAL HISTORY OF wisdom teeth ALLERGIES Dimetapp [Brompheniramine-Pseudoephedrin ] MEDICATIONS albuterol HFA (PROAIR HFA) 90 mcg/actuation inhaler Inhale 2 Puffs as instructed every 4 hours as needed. FAMILY HISTORY Problem Relation Age of Onset Alcohol/Drug Mother drug overdose No Known Problems Father No Known Problems Sister No Known Problems Sister No Known Problems Sister No Known Problems Brother No Known Problems Brother No Known Problems Brother No Known Problems Maternal Grandmother No Known Problems Paternal Grandmother No Known Problems Paternal Grandfather Eczema Son Eczema Daughter Social History Tobacco Use Smoking status: Former Current packs/day: 0.00 Types: Cigarettes Start date: 07/20/2017 Quit date: 07/20/2018 Years since quittin.9 Passive exposure: Current Smokeless tobacco: Never Tobacco comments: social smoker Vaping Use Vaping status: Some Days Last attempt to quit: 09/08/2018 Substance Use Topics Alcohol use: No Drug use: No BP 123/78 Pulse 88 Temp 37.3 C (99.1 F) Resp 18 Wt 86.4 kg (190 lb 7.6 oz) LMP 05/03/2024 (Exact Date) SpO2 99% No BMI 34.87 kg/m Review of Systems Constitutional: Negative for chills, fever and malaise/fatigue. HENT: Positive for sore throat. Negative for congestion, ear discharge, ear pain and sinus pain. Eyes: Negative for blurred vision, pain, discharge and redness. Respiratory: Negative for cough, hemoptysis, sputum production, shortness of breath, wheezing and stridor. Cardiovascular: Negative for chest pain. Gastrointestinal: Negative for abdominal pain, diarrhea, nausea and vomiting. Musculoskeletal: Negative for myalgias. Skin: Negative for itching and rash. Neurological: Positive for headaches. Negative for dizziness. Objective Physical Exam Constitutional: General: She is not in acute distress. Appearance: She is not diaphoretic. HENT: Head: Normocephalic. Jaw: No trismus, tenderness, swelling or pain on movement. Mouth/Throat: Mouth: Mucous membranes are moist. Pharynx: Oropharynx is clear. Uvula midline. Posterior oropharyngeal erythema present. No pharyngeal swelling, oropharyngeal exudate or uvula swelling. Eyes: Conjunctiva/sclera: Conjunctivae normal. Pupils: Pupils are equal, round, and reactive to light. Cardiovascular: Rate and Rhythm: Normal rate and regular rhythm. Heart sounds: Normal heart sounds. Pulmonary: Effort: Pulmonary effort is normal. No tachypnea, accessory muscle usage or respiratory distress. Breath sounds: Normal breath sounds. No stridor. No wheezing, rhonchi or rales. Abdominal: General: There is no distension. Palpations: Abdomen is soft. Tenderness: There is no abdominal tenderness. There is no guarding or rebound. Musculoskeletal: Cervical back: Normal range of motion and neck supple. No edema, erythema, rigidity or tenderness. No pain with movement. Normal range of motion. Lymphadenopathy: Cervical: No cervical adenopathy. Skin: General: Skin is warm and dry. Neurological: Mental Status: She is alert and oriented to person, place, and time. ASSESSMENT/PLAN: 1. Sore throat - ICD9: 462, ICD10: J02.9 (primary diagnosis) - STREP A MOLECULAR (POC) 2. Viral illness - ICD9: 079.99, ICD10: B34.9 - Discussed viral etiology and rationale for treatment. - Rapid strep negative in office today - Symptomatic treatment with prn analgesia - Supportive care with fluids and rest Patient was educated on supportive therapies. Patient will follow up with primary care provider as needed. Patient was instructed to immediately proceed to emergency room for any new, worsening, or symptoms lasting longer than anticipated. The patient's clinical presentation is otherwise unremarkable at this time. Based on exam and clinical finding, the patient is stable for discharge. Plan of care was discussed with patient. Patient verbalizes understanding and agrees to plan of care. This note was generated using APImetrics software. It may contain errors in wording, punctuation, or spelling. Sami Calles APRN.SUPERVISOR RECORD PRESS documented in this encounter [facility] 05-18-2024 Note HNO ID: [id number] Author: ISABEL HOPPER APRN.SUPERVISOR RECORD PRESS Service: ? Author Type: Nurse Practitioner Type: Progress Notes Filed: 05/18/2024 15:49 Note Text: Patient declined payroll assistantGeri Rosenbaum is a 23 year old who presents for an annual gynecologic exam reported recent antibiotic use for sinus infection x2 weeks prior, current vaginal discharge, irritation used OTC monistat 05/16/2024. Menses: cycles every 25-30 days and 4-5 days of flow. Contraception: vasectomy HPV vaccine: No Last Pap: 05/21/2021 normal HPV: N/A History of abnormal pap: 08/17/2018. Last mammogram: never Sexually active: Yes Pain with intercourse: No Postcoital bleeding: No OB History T3 L3 SAB0 IAB0 Ectopic0 Multiple0 Live Births3 Environmental Services Assistant History LMP: 04/30/2023 (Exact Date), Having periods Age at Menarche: Age at First : Age at Menopause: Environmental Services Assistant History Comments: Sexual Activity: Yes; Male Contraception: Vasectomy PAST MEDICAL HISTORY Diagnosis Date Asthma PAST SURGICAL HISTORY Procedure Laterality Date PAST SURGICAL HISTORY OF wisdom teeth FAMILY HISTORY Problem Relation Age of Onset Alcohol/Drug Mother drug overdose No Known Problems Father No Known Problems Sister No Known Problems Sister No Known Problems Sister No Known Problems Brother No Known Problems Brother No Known Problems Brother No Known Problems Maternal Grandmother No Known Problems Paternal Grandmother No Known Problems Paternal Grandfather Eczema Son Eczema Daughter SOCIAL HISTORY Social History Tobacco Use Smoking status: Former Current packs/day: 0.00 Types: Cigarettes Start date: 07/20/2017 Quit date: 07/20/2018 Years since quittin.8 Passive exposure: Current Smokeless tobacco: Never Tobacco comments: social smoker Vaping Use Vaping status: Former Quit date: 09/08/2018 Substance Use Topics Alcohol use: No Drug use: No REVIEW OF SYSTEMS Abdomen: No abdominal pain, nausea, vomiting, diarrhea, or constipation. No bloating, early satiety, indigestion, or increased flatulence. Bladder: No dysuria, gross hematuria, urinary frequency, urinary urgency, or incontinence. Breast: No breast lumps, nipple d/c, overlying skin changes, redness or skin retraction. Allergies and current medication updated:Yes SENSITIVE EXAM: The sensitive examination was discussed with the Patient or Patient's Authorized Aircraft Painter. As applicable, any other physician, advance practice provider, medical student, or other health professional student that will be observing or involved in the sensitive examination for educational or training purposes was discussed with the Patient or Authorized Aircraft Painter. The Patient or Authorized Aircraft Painter has agreed to proceed with the sensitive examination. (Sensitive examination includes inspection and/or palpation of the breasts, pelvis, prostate and anorectal regions). EXAM: LMP 04/30/2023 GENERAL: pleasant, female in no apparent distress HEENT: Normocephalic, atraumatic, mucus membranes moist, and no lesions NECK: Supple, full range of motion, no adenopathy, and thyroid normal DERMATOLOGY: Normal, without lesions, non-icteric, and non-hirsute BREAST: soft, non-tender, symmetric, no dominant mass, normal nipple-areolar complex, no lymphadenopathy, and no nipple discharge CHEST: Normal inspiratory effort ABDOMEN: soft, non-tender, and no masses PELVIC: external genitalia normal, normal Bartholin's glands, urethra, Scarbro's glands, no vulvar lesions, no cervical lesions, physiologic discharge present, normal appearing perineal body and perianal region BIMANUAL: uterus normal size, shape and consistency, no adnexal masses, and non-tender RECTOVAGINAL: deferred. NEURO: alert and oriented x3,exam grossly non-focal EXTREMITIES: normal ASSESSMENT/PLAN: 1) Health maintenance: Pap done with reflex HPV. Mammogram starting age 40. Nutrition, exercise and routine health maintenance exams reviewed. Calcium/Vitamin D supplementation information provided. 2) Contraception: vasectomy. Contraceptive options reviewed and information provided. 3) STD screening: Declined STD check. 4) Follow up one year or sooner as needed 5) BV/yeast ordered Isabel Hopper APRN.[facility] [place] 05-18-2024 History of Presen t illness Narrative Patient declined payroll assistantGeri Rosenbaum is a 23 year old who presents for an annual gynecologic exam reported recent antibiotic use for sinus infection x2 weeks prior, current vaginal discharge, irritation used OTC monistat 05/16/2024. Menses: cycles every 25-30 days and 4-5 days of flow. Contraception: vasectomy HPV vaccine: No Last Pap: 05/21/2021 normal HPV: N/A History of abnormal pap: 08/17/2018. Last mammogram: never Sexually active: Yes Pain with intercourse: No Postcoital bleeding: No OB History T3 L3 SAB0 IAB0 Ectopic0 Multiple0 Live Births3 Environmental Services Assistant History LMP: 04/30/2023 (Exact Date), Having periods Age at Menarche: Age at First : Age at Menopause: Environmental Services Assistant History Comments: Sexual Activity: Yes; Male Contraception: Vasectomy PAST MEDICAL HISTORY Diagnosis Date Asthma PAST SURGICAL HISTORY Procedure Laterality Date PAST SURGICAL HISTORY OF wisdom teeth FAMILY HISTORY Problem Relation Age of Onset Alcohol/Drug Mother drug overdose No Known Problems Father No Known Problems Sister No Known Problems Sister No Known Problems Sister No Known Problems Brother No Known Problems Brother No Known Problems Brother No Known Problems Maternal Grandmother No Known Problems Paternal Grandmother No Known Problems Paternal Grandfather Eczema Son Eczema Daughter SOCIAL HISTORY Social History Tobacco Use Smoking status: Former Current packs/day: 0.00 Types: Cigarettes Start date: 07/20/2017 Quit date: 07/20/2018 Years since quittin.8 Passive exposure: Current Smokeless tobacco: Never Tobacco comments: social smoker Vaping Use Vaping status: Former Quit date: 09/08/2018 Substance Use Topics Alcohol use: No Drug use: No REVIEW OF SYSTEMS Abdomen: No abdominal pain, nausea, vomiting, diarrhea, or constipation. No bloating, early satiety, indigestion, or increased flatulence. Bladder: No dysuria, gross hematuria, urinary frequency, urinary urgency, or incontinence. Breast: No breast lumps, nipple d/c, overlying skin changes, redness or skin retraction. Allergies and current medication updated:Yes SENSITIVE EXAM: The sensitive examination was discussed with the Patient or Patient's Authorized Aircraft Painter. As applicable, any other physician, advance practice provider, medical student, or other health professional student that will be observing or involved in the sensitive examination for educational or training purposes was discussed with the Patient or Authorized Aircraft Painter. The Patient or Authorized Aircraft Painter has agreed to proceed with the sensitive examination. (Sensitive examination includes inspection and/or palpation of the breasts, pelvis, prostate and anorectal regions). EXAM: LMP 04/30/2023 GENERAL: pleasant, female in no apparent distress HEENT: Normocephalic, atraumatic, mucus membranes moist, and no lesions NECK: Supple, full range of motion, no adenopathy, and thyroid normal DERMATOLOGY: Normal, without lesions, non-icteric, and non-hirsute BREAST: soft, non-tender, symmetric, no dominant mass, normal nipple-areolar complex, no lymphadenopathy, and no nipple discharge CHEST: Normal inspiratory effort ABDOMEN: soft, non-tender, and no masses PELVIC: external genitalia normal, normal Bartholin's glands, urethra, Scarbro's glands, no vulvar lesions, no cervical lesions, physiologic discharge present, normal appearing perineal body and perianal region BIMANUAL: uterus normal size, shape and consistency, no adnexal masses, and non-tender RECTOVAGINAL: deferred. NEURO: alert and oriented x3,exam grossly non-focal EXTREMITIES: normal ASSESSMENT/PLAN: 1) Health maintenance: Pap done with reflex HPV. Mammogram starting age 40. Nutrition, exercise and routine health maintenance exams reviewed. Calcium/Vitamin D supplementation information provided. 2) Contraception: vasectomy. Contraceptive options reviewed and information provided. 3) STD screening: Declined STD check. 4) Follow up one year or sooner as needed 5) BV/yeast ordered Isabel Hopper APRN.MANNY documented in this encounter [facility] 12-28-2023 History of Presen t illness Narrative 23 y.o. female presents for evaluation of sore throat that has been present for the past 3 days. States she also has noted some swollen cervical lymph nodes. Denies fever, cough, nasal congestion, body aches, fatigue, abdominal pain, nausea, vomiting, diarrhea, chest pain, shortness of breath or any other associated symptom or complaint. No OTC meds for symptom management. No other complaints. Vitals: 12/28/23 1225 BP: (!) 143/91 Pulse: 86 Resp: 14 Temp: 37 C (98.6 F) SpO2: 96% Allergies Allergen Reactions Brompheniramine-Pseudoephedrin Unknown Pt unaware. Mother reported Medication Documentation Review Audit Reviewed by Lisseth Kennedy MA (Masonry Installer) on 12/28/23 at 1225 Medication Order Taking? Sig Documenting Provider Last Dose Status No Medications to Display No past medical history on file. No past surgical history on file. ROS See HPI Physical Exam Vitals and nursing note reviewed. Constitutional: General: She is not in acute distress. Appearance: Normal appearance. She is not ill-appearing or toxic-appearing. HENT: Head: Normocephalic and atraumatic. Right Ear: Tympanic membrane and ear canal normal. Left Ear: Tympanic membrane and ear canal normal. Nose: Nose normal. Mouth/Throat: Mouth: Mucous membranes are moist. Pharynx: Uvula midline. Posterior oropharyngeal erythema present. No pharyngeal swelling or oropharyngeal exudate. Tonsils: No tonsillar exudate or tonsillar abscesses. Eyes: Extraocular Movements: Extraocular movements intact. Conjunctiva/sclera: Conjunctivae normal. Pupils: Pupils are equal, round, and reactive to light. Cardiovascular: Rate and Rhythm: Normal rate and regular rhythm. Pulmonary: Effort: Pulmonary effort is normal. Breath sounds: Normal breath sounds. Lymphadenopathy: Cervical: Cervical adenopathy present. Skin: General: Skin is warm and dry. Neurological: General: No focal deficit present. Mental Status: She is alert and oriented to person, place, and time. Psychiatric: Mood and Affect: Mood normal. Behavior: Behavior normal. Recent Results (from the past 1 hour(s)) POCT Group A Streptococcus, PCR manually resulted Collection Time: 12/28/23 12:59 PM Result Value Ref Range POC Group A Strep, PCR Not Detected Not Detected POCT SARS-COV-2/FLU/RSV PCR SYMPTOMATIC manually resulted Collection Time: 12/28/23 1:30 PM Result Value Ref Range POC Coronavirus 2019, PCR Not Detected Not Detected POC Flu A Result Not Detected Not Detected POC Flu B Result Not Detected Not Detected POC RSV PCR Not Detected Not Detected Assessment/Plan/MDM Wellington was seen today for sore throat. Diagnoses and all orders for this visit: Acute upper respiratory infection (Primary) - POCT Group A Streptococcus, PCR manually resulted - POCT SARS-COV-2/FLU/RSV PCR SYMPTOMATIC manually resulted - predniSONE (Deltasone) 20 mg tablet; Take 1 tablet (20 mg) by mouth once daily for 5 days. Encouraged pt to continue otc cold remedies PRN, push PO fluids and rest. Patient's clinical presentation is otherwise unremarkable at this time. Patient is discharged with instructions to follow-up with primary care or seek emergency medical attention for worsening symptoms or any new concerns. I did personally review Wellington's past medical history, surgical history, social history, as well as family history (when relevant). In this case, I also oversaw the her drug management by reviewing her medication list, allergy list, as well as the medications that I prescribed during the UC course and/or recommended as an out-patient (including possible OTC medications such as acetaminophen, NSAIDs , etc). After reviewing the items above, I did not look at previous medical documentation, such as recent hospitalizations, office visits, and/or recent consultations with PCP/specialist. SDOH: Another factor that I considered in Wellington's care was her Social Determinants of Health (SDOH). During this UC encounter, she did not have social determinants of health. Those SDOH influencing Wellington's care are: none Landry Burden CNP [facility] [phone] documented in this encounter [facility] Work Phone: 06-17-2022 Miscellaneous Notes Patient notified. Morenita Miller RN I would not worry so much about taking a medication but staying well hydrated at this time. She needs to try and drink fluids like water or something with electrolytes. Hope she starts feeling better soon!! Cee Bradshaw APRN.CNM Patient delivered on 03/30/22 and is . Has had diarrhea for the last several days. Asking what she can take that is safe with . Morenita Miller RN documented in this encounter [facility] 05-11-2022 History of Presen t illness Narrative VISIT Composition Weatherboard Installer offered: Patient declines. Obstetric History T3 L3 SAB0 IAB0 Ectopic0 Multiple0 Live Births3 Name of Baby 1: Hemanth Date: 04/06/19 GA: 39w2d Delivery: Vaginal, Vacuum (Extractor) Apgar1: Not recorded Apgar5: Not recorded Living: Living Name of Baby 2: Sneha Hinojosa Date: 03/26/21 GA: 37w6d Delivery: Vaginal, Spontaneous Apgar1: Not recorded Apgar5: Not recorded Living: Living Name of Baby 3: Jere Date: 03/30/22 GA: 37w0d Delivery: Vaginal, Spontaneous Apgar1: 9 Apgar5: 9 Living: Living Wellington Elizabeth is a 21 year old year old here for visit. Delivery Summary: ROS/ Recovery: Feeding: Breast feeding problems: None Menses since delivery: none Menstrual pattern prior to : Regular periods [place] since delivery: Not resumed Depression: denies symptoms of depression. OB Depression and Anxiety Screening- This Encounter (since 05/10/2022) Over the past 2 weeks have you felt down, depressed, or hopeless? Negative Over the past two weeks, have you felt little interest or pleasure in doing things? Negative Feeling nervous, anxious or on edge 0-Not at all Not being able to stop or control worrying 0-Not al all Anxiety Pre-Screening Total (If >/= 3 additional questions will be reviewed) 0 Emotional support: Yes Bowel symptoms: Negative for abdominal discomfort, blood in stools or black stools and change in bowel habits Abdomen: N/A Bladder symptoms: No dysuria, gross hematuria, urinary frequency, urinary urgency, or incontinence Other issues: None Last Pap: 2020 normal HPV: N/A PAST MEDICAL HISTORY Diagnosis Date Asthma PAST SURGICAL HISTORY Procedure Laterality Date PAST SURGICAL HISTORY OF wisdom teeth FAMILY HISTORY Problem Relation Age of Onset Alcohol/Drug Mother drug overdose No Known Problems Father No Known Problems Sister No Known Problems Sister No Known Problems Sister No Known Problems Brother No Known Problems Brother No Known Problems Brother No Known Problems Maternal Grandmother No Known Problems Paternal Grandmother No Known Problems Paternal Grandfather Eczema Son Eczema Daughter Social History Tobacco Use Smoking status: Former Years: 1.00 Types: Cigarettes Quit date: 07/20/2018 Years since quittin.8 Smokeless tobacco: Never Tobacco comments: social smoker Vaping Use Vaping Use: Former Quit date: 09/08/2018 Substance Use Topics Alcohol use: No Drug use: No PHYSICAL EXAMINATION: BP 108/68 Wt 189 lb 9.6 oz (86.0kg) LMP 07/07/2021 GENERAL: pleasant, female in no apparent distress HEENT: Normocephalic, atraumatic, and no lesions NECK: Supple, full range of motion, no adenopathy, and thyroid normal DERMATOLOGY: Normal, without lesions, non-icteric, and non-hirsute BREAST: soft, non-tender, symmetric, no dominant mass, normal nipple-areolar complex, no lymphadenopathy, and no nipple discharge CHEST: Normal inspiratory effort ABDOMEN: soft, non-tender, and no masses. INCISION: N/A PELVIC: external genitalia normal, normal Bartholin's glands, urethra, Scarbro's glands, no vulvar lesions, no cervical lesions, physiologic discharge present, normal appearing perineal body and perianal region BIMANUAL: uterus normal size, shape and consistency, no adnexal masses, and non-tender NEURO: alert and oriented x3,exam grossly non-focal EXTREMITIES: normal ASSESSMENT AND PLAN: 21 year old status post with normal course. Contraception plan: Oral contraceptives Follow up: weight loss: Goal set for 10% of body weight over 6 months. Discussed diet and exercise., Prescription given per orders, Progesterone only OCP - patient will call when no longer , RTC for annual exams and PRN Isabel Hopper APRN.SUPERVISOR RECORD PRESS documented in this encounter [facility] 04-06-2022 History of Presen t illness Narrative EARLY VISIT Obstetric History T3 L3 SAB0 IAB0 Ectopic0 Multiple0 Live Births3 Name of Baby 1: Hemanth Date: 04/06/19 GA: 39w2d Delivery: Vaginal, Vacuum (Extractor) Apgar1: Not recorded Apgar5: Not recorded Living: Living Name of Baby 2: Sneha Hinojosa Date: 03/26/21 GA: 37w6d Delivery: Vaginal, Spontaneous Apgar1: Not recorded Apgar5: Not recorded Living: Living Name of Baby 3: Jere Date: 03/30/22 GA: 37w0d Delivery: Vaginal, Spontaneous Apgar1: 9 Apgar5: 9 Living: Living Wellington Elizabeth is a 21 year old here for 1 week visit. Delivery Summary: ROS: General: Denies any fever or chills Hypertension Screening: Headache? No. Visual Changes? No Epigastric Pain? No Increased Swelling? No Taking any BP medications at home? No If applicable, monitoring BP at home? (If Yes, include results) No Mood: normal Depression: denies symptoms of depression. OB Depression and Anxiety Screening- This Encounter (since 04/05/2022) Over the past 2 weeks have you felt down, depressed, or hopeless? Negative Over the past two weeks, have you felt little interest or pleasure in doing things? Negative Feeling nervous, anxious or on edge 0-Not at all Not being able to stop or control worrying 0-Not al all Anxiety Pre-Screening Total (If >/= 3 additional questions will be reviewed) 0 Feeding: Breast feeding problems: None Bladder: No dysuria, gross hematuria, urinary frequency, urinary urgency, or incontinence Bowel symptoms: Negative for abdominal discomfort, blood in stools or black stools and change in bowel habits Abdomen: N/A Bleeding: light flow Bottom and Perineum: No issues PHYSICAL EXAMINATION: BP 108/60 Wt 193 lb (87.5 kg) LMP 07/07/2021 (Exact Date) Yes BMI 36.47 kg/m General: pleasant,female in no apparent distress, A&O x 3. Skin warm and intact. Breast: Deferred Abdomen: Deferred /Incision: N/A Pelvic: Deferred Bimanual: Deferred ASSESSMENT AND PLAN: 21 year old status post with normal course. Contraception plan: Oral contraceptives but discussed other options including Mirena IUD. Reinforced 6-week pelvic rest. Encouraged condom usage should patient deviate. Education: resources provided - see MA/RN note Follow up: Follow-up with provider for 6 week visit and as needed Medical Decision Making: Medical Decision Making Level: 1 - N/A Lui Waterman MD documented in this encounter [facility] 03-31-2022 History of Presen t illness Narrative Patient delivered via by Dr. Hall on 03/30/22 at [facility]. See OB history. Kassie Roth RN documented in this encounter [facility] 03-30-2022 Miscellaneous Notes Patient 37w0d calling to notify office that her water broke a couple of minutes ago and was clear. Baby is active, no regular contractions. Patient headed to L&D. ERICKI. Claudia Moran RN documented in this encounter [facility] 03-25-2022 Miscellaneous Notes KJ - VB No. LOF No. CTXS No. Movement: present. Other c/o: No. Medication list reviewed. Physical Exam See Flow Sheet Gen: no accute distress, well appearing Abd: soft, nontender, gravid TAUS: confirms vtx A/P 36w2d Estimated Date of Delivery: 04/20/22 Labs: GBS done Stable PUPPS PTL precautions reviewed, Kick counts reviewed. Lui Waterman MD documented in this encounter [facility] 03-25-2022 Instructions Taty Daly Ma - 03/25/2022 8:17 AM EDT SEQUENTIAL SCREENINGS The [facility] offers sequential screenings for women who are interested in screenings for chromosomal abnormalities and certain defects during a . The sequential screen combines ultrasound and blood tests to determine the risk of chromosomal abnormalities, including Down's Syndrome (Trisomy 21) and Trisomy 18, as well as open neural tube defects including spina bifida. Ultrasound examination is performed between 11 weeks and 13 weeks gestational age. Blood tests are drawn after the ultrasound and again later in the between 15 and 21 weeks gestational age. Please let your physician know if you are interested in this testing. It will require an appointment with our survey cad technician. This is not an ultrasound performed by a physician in our office during a routine visit. SIGNS AND SYMPTOMS OF LABOR 1. Contractions every 10 minutes or more often 2. Clear, pink, or brownish fluid (water) leaking from vagina 3. Feeling that baby is pushing down, pressure 4. Low, dull backache 5. Cramps that feel like a period 6. Cramps with or without diarrhea If you notice any of the above symptoms, contact our office at [phone] and ask to speak with a nurse. After hours, you can call doctors registry at [phone] OR call [facility] at [phone] and ask to have the doctor speech therapist early intervention paged. If you consider this an emergency, dial 03-18- or go to your nearest emergency department. NEED HELP? Are you dealing with a violent or abusive relationship? Are you a victim of rape or sexual assult? Call [facility] ([place]) 24 hour Crisis Hotline: 563.223.2138 or 772-946-2076. MANUAL Your Guide to a Healthy manual is now on-line. Visit [email or web address] to download your free copy documented in this encounter [facility] 03-12-2022 Miscellaneous Notes visit done by [employer]iel[employer] video visit platform> Consent for virtual visit obtained. RR- VB No. LOF No. CTXS No. Movement: present. Other c/o: No. Medication list reviewed. Physical Exam See Flow Sheet Gen: no accute distress, well appearing A/P 34w3d Estimated Date of Delivery: 04/20/22 GBS and in person visit next visit was outside, didn't do BP or wt today, she will send CELtrak message later today w/ those vitals f/u in 2 weeks or prn kick counts. PUPPPS rash improved Sheryl Burton M.D. documented in this encounter [facility] 02-26-2022 History of Past i llness Narrative Problem Noted Date Resolved Date PUPP (pruritic urticarial papules and plaques of ) 02/26/2022 05/11/2022 Obesity in 01/27/2022 05/11/2022 Overview: 01/27/22-Prepregnancy BMI 33. Alona Maciel APRN.CNM Abnormal glucose complicating 01/14/2005/11/2022 Overview: 01/13/22 Failed 1 hr GTT. Needs 3 hr. SW Short interval between pregn ancies affecting , antepartum 09/08/2021 05/11/2022 Overview: 09/17/21 Discussed risks of short interval . SW 09/08/2021 Father of the baby is involved and the father of her other children. Patient is planning on graduating this spring with a bachelor's degree in business administration. Patient delivered her previous child March 26, 2021. This is a surprise . She states this was the first menses after her delivery and she was taking control pills. She states she is okay with the . TKRN Pelvic pain in , antepartum, first trim mikaela 09/08/2021 05/11/2022 Overview: 09/08/2021 Patient called in August 26, 2021 with pain during . Quantitative hCGs were done. An ultrasound was done on September 03 and showed an intrauterine at 7 weeks 2 days. Patient denies any pain since then. Denies any bleeding this . TKRN Supervision of high risk in [facility] 12/25/2020 05/11/2022 History of vacuum extraction assisted delivery 0 08/26/2020 05/11/2022 Overview: 08/26/2019 Patient has a history of vacuum extraction for maternal exhaustion with her first delivery.TKRN Nausea and vomiting in 08/26/2020 05/11/2022 Overview: 08/26/2019Patient is complaining of nausea and occasional vomiting in . Dietary considerations discussed . Vitamin B6 recommended. Advised patient to call/come in if she is unable to keep any food or fluids down in a 24-hour period. TKRN Asthma affecting in first trimester 04/16/2019 Overview: 09/01/18 Continue to monitor. No hemabate. Patient request for diagnostic testing 9 05/11/2022 Overview: 1Patient desires nuchal ultrasound. She has had cystic fibrosis carrier screening testing in the past.Shanti Urban RN documented as of this encounter (statuses as of 05/11/2022) [facility]08-12-2022 History of Past illness Narrative* Problem Noted Date Resolved Date PUPP (pruritic urticarial papules and plaques of ) 02/26/2022 05/11/2022 Obesity in 01/27/2022 05/11/2022 Overview: 01/27/22-Prepregnancy BMI 33. Alona Maciel APRN.CNM Abnormal glucose complicating 01/14/2005/11/2022 Overview: 01/13/22 Failed 1 hr GTT. Needs 3 hr. SW Short interval between pregn ancies affecting , antepartum 09/08/2021 05/11/2022 Overview: 09/17/21 Discussed risks of short interval . SW 09/08/2021 Father of the baby is involved and the father of her other children. Patient is planning on graduating this spring with a bachelor's degree in business administration. Patient delivered her previous child March 26, 2021. This is a surprise . She states this was the first menses after her delivery and she was taking control pills. She states she is okay with the . TKRN Pelvic pain in , antepartum, first trim mikaela 09/08/2021 05/11/2022 Overview: 09/08/2021 Patient called in August 26, 2021 with pain during . Quantitative hCGs were done. An ultrasound was done on September 03 and showed an intrauterine at 7 weeks 2 days. Patient denies any pain since then. Denies any bleeding this . TKRN Supervision of high risk in [facility] 12/25/2020 05/11/2022 History of vacuum extraction assisted delivery 0 08/26/2020 05/11/2022 Overview: 08/26/2019 Patient has a history of vacuum extraction for maternal exhaustion with her first delivery.TKRN Nausea and vomiting in 08/26/2020 05/11/2022 Overview: 08/26/2019Patient is complaining of nausea and occasional vomiting in . Dietary considerations discussed . Vitamin B6 recommended. Advised patient to call/come in if she is unable to keep any food or fluids down in a 24-hour period. TKRN Asthma affecting in first trimester 04/16/2019 Overview: 09/01/18 Continue to monitor. No hemabate. SW Patient request for diagnostic testing 9 05/11/2022 Overview: 1Patient desires nuchal ultrasound. She has had cystic fibrosis carrier screening testing in the past.Shanti Urban RN documented as of this encounter (statuses as of 06/17/2022) [facility]08-12-2022 Miscellaneous Notes* Quick Notes - Emerson Mujica MD - 02/26/2022 8:51 AM EDT SW- No regular ctx, vb, lof. Good FM. PE: Gen- NAD, well appearing Abd- Gravid See flowsheet A/p 32 wk gestation - Growth US today final report pending - Discussed upcoming expectations and questions answered - PUPP being treated by derm - RTO 2 wks for virtual OB visit Emerson Mujica DO documented [facility] Instructions* Patient Instructions* Daly Cotto MA - 02/26/2022 8:29 AM EDT SEQUENTIAL SCREENINGS The [facility] offers sequential screenings for women who are interested in screenings for chromosomal abnormalities and certain defects during a . The sequential screen combinesultrasound and blood tests to determine the risk of chromosomal abnormalities, including Down's Syndrome (Trisomy 21) and Trisomy 18, as well as open neural tube defects including spina bifida. Ultrasound examination is performed between 11 weeks and 13 weeks gestational age. Blood tests are drawn after the ultrasound and again later in the between 15 and 21 weeks gestational age. Please let your physician know if you are interested in this testing. It will require an appointment withour survey cad technician. This is not an ultrasound performed by a physician in our office during a routine visit. SIGNS AND SYMPTOMS OF LABOR 1. Contractions every 10 minutes or more often 2. Clear, pink, or brownish fluid (water) leaking from vagina 3. Feeling that baby is pushing down, pressure 4. Low, dull backache 5. Cramps that feel like a period 6. Cramps with or without diarrhea If you notice any of the above symptoms, contact our office at [phone] and ask to speak with anurse. After hours, you can call doctors registry at [phone] OR call [facility] at [phone] ask to have the doctor speech therapist early intervention paged. If you consider this an emergency, dial 9-1-5 or go to your nearest emergency department. NEED HELP? Are you dealing with a violent or abusive relationship? Are you a victim of rape or sexual assult? Call [facility] ([place]) 24 hour Crisis Hotline: 689.711.6606 or 834-238-4636. MANUAL Your Guide to a Healthy manual is now on-line. Visit [email or web address] to download your free copy documented in this encounterPrem[facility] Miscellaneous Notes* Telephone Encounter - Kassie Roth RN - 02/17/2022 9:30 AM EDT 31w1d Received records from [facility] regarding rash. Records to to review. Patient last saw [facility] 02/11/22. Needs next OB visit scheduled too. Kassie Roth RN documented in this encounterPrem[facility] Miscellaneous Notes* Quick Notes - Alona Maciel APRN.CNM - 02/11/2022 9:58 AM EDT [facility] VISIT This Team Access Model visit is a virtual encounter. It required patient- provider interaction for the medical decision making as documented below. VAHID-S: Wellingtonnadia Elizabeth is a 21 year old female who presents at 30w2d with VALENCIA:04/20/2022, by Ultrasound for a routine visit. Denies headache, visual changes, chest pain, shortness of breath, vaginalbleeding, leakage of fluid, or dysuria. Feeling well, no complaints. Rash started back of arms, stomach, thighs. No hand or feet. Was present for a while. Has appointment with dermatology. O: See flow sheet Gen: No apparent distress Abd: Gravid, nontender with patient palpation. P: 1) PTL precautions reviewed and when to call 2) RTO in 2 weeks in person 3) US scheduled for growth Alona Maciel APRN.CNM I spent a total of 20 minutes on the date of the service which included preparing to see the patient, [id number] patient care, completing clinical documentation, obtaining and/or reviewing separately obtained history and performing a medically appropriate examination. documented in this encounterPrem[facility] Miscellaneous Notes* Telephone Encounter - Virginia Willis LPN - 02/01/2022 1:14 PM EDT Will fax order to [facility]. Pt has scheduled appt. Virginia Willis LPN * Telephone Encounter - Catie BUTLER - 02/01/2022 1:03 PM EDT Spoke with patient who wanted to schedule with Derm. Advised that [place] was the closest location and she declined to schedule because she didn't want to drive that far. Pt then asked how soon she could get in. The first available was 04/29. Patient again declined. Patient is calling [facility] to see if they take [employer] and will call back. If so, please fax a derm referral over to [facility] for this patient. Catie BUTLER * Telephone Encounter - Virginia Willis LPN - 02/01/2022 12:55 PM EDT Pt notified and was transferred to lead front desk agent to assist in scheduling. Virginia Willis LPN * Telephone Encounter - Emerson Mujica MD - 02/01/2022 12:46 PM EDT Recommend being evaluated in the office. If she prefers to see dermatology she can do this as well,order placed. * Telephone Encounter - Virginia Willis LPN - 02/01/2022 12:02 PM EDT Pt calling and stating that the rash that she has had is getting worse. Pt reports that the rash isall over. Pt thought that she needs to be referred to a drafter engineering. Please advise. Pt seen by Hodan jimenez. Virginia Willis LPN documented in this encounterPrem[facility] Miscellaneous Notes* Telephone Encounter - Virginia Willis LPN - 01/29/2022 1:45 PM EDT Order attached to visit. Virginia Willis LPN * Telephone Encounter - Alona Maciel APRN.CNM - 01/29/2022 1:39 PM EDT Order signed. Alona Maciel APRN.CNM * Telephone Encounter - Ashley Johnson LPN - 01/27/2022 3:46 PM EDT Ob patient is 28w1d and had virtual ob appointment today. Patient called stating that she was to schedule a growth ultrasound at 32 weeks but was not able to due to not having an order placed. Nurse scheduled the ultrasound. Please place order documented in this encounterPremier [facility] Instructions* Patient Instructions* Cee Bradshaw APRN.CNM - 01/19/2022 2:59 PM EDT Take steroid pack already prescribed Benadryl 25 mg PO every 4 hours as needed for itching documented in this encounterPremier Health [facility] History of Present illness Narrative* Cee Bradshaw APRN.CNM - 01/19/2022 2:28 PM EDT Wellington Elizabeth is a 21 year old female who presents for problem visit of continued rash that isspreading. She is currently 27.0 weeks gestation and was seen in office last week for rash under breasts- treated with miconazole lotion. The rash has improved under her breasts but now has rash on back of both arms and stomach that remains pruritic. She denies any change to soaps, detergents or lotions. She was seen at Urgent Care last weekend and was given prednisone pack to take but didn't take because unsure if safe in . EXAM: BP 124/60 Wt 197 lb (89.4kg) LMP 07/07/2021 GENERAL: pleasant, female in no apparent distress HEENT: Normocephalic NECK: Supple and full range of motion DERMATOLOGY: raised non pustule areas to back of arms bilaterally by armpits. Small areas under breasts still present. Abdomen has scattered areas with rash. Dr. Burton to room for evaluation. ASSESSMENT/PLAN: 1. 27 weeks gestation of - ICD9: V22.2, ICD10: Z3A.27 (primary diagnosis) 2. Irritant dermatitis - ICD9: 692.9, ICD10: L24.9 - Change all detergents to clear and free - Do not use any scented lotions or soaps - Start prednisone pack and complete - Benadryl 25 mg at bedtime if needed for pruritis. - caution due to 3. Yeast dermatitis - ICD9: 112.3, ICD10: B37.2 - Miconazole cream made area more irritated and just spread the rash- stop using RTO- regular OB or if s/s worsen Cee Bradshaw APRN.CNM documented in this encounterPrem[facility] Miscellaneous Notes* Telephone Encounter - Virginia Willis LPN - 01/19/2022 1:23 PM EDT Pt returned call and was given an appt this afternoon with Cee Bradshaw. Virginia Willis LPN * Telephone Encounter - Virginia Willis LPN - 01/19/2022 7:10 AM EDT Please see pt's CELtrak message and further advise in SW absence. Virginia Willis LPN documented in this encounterPrem[facility]22 Miscellaneous Notes* Telephone Encounter - Virginia Willis LPN - 01/19/2022 11:32 AM EDT Noted. Virginia Willis LPN * Telephone Encounter - Ashley Johnson LPN - 01/15/2022 2:24 PM EDT Patient stated in LPATHt message that test strips were approved * Telephone Encounter - Virginia Willis LPN - 01/14/2022 9:24 AM EDT Electronic PA submitted for glucose test strips. Will await further information from Pt's insurance. Virginia Willis LPN documented in this encounterPrem[facility] Miscellaneous Notes* Telephone Encounter - Claudia Moran RN - 01/14/2022 1:37 PM EDT Patient notified via [employer] message. Claudia Moran RN * Telephone Encounter - Emerson Mujica MD - 01/14/2022 1:14 PM EDT filed * Telephone Encounter - Morenita Miller RN - 01/14/2022 1:07 PM EDT 26w2d Patient states she would like to try and do the 3 HR glucose now. Thinks her sister can come with her to help with the kids. Would still like PA for glucose strips to be worked on in case she fails the 3 hour test. Order pending. Morenita Miller RN documented in this encounterPremier Health [facility]06-29-[facility]22 Miscellaneous Notes* Addendum Note - Kassie Roth RN - 01/13/2022 2:09 PM EDT Addended by: KASSIE ROTH RN on: 01/13/2022 02:09 PM Modules accepted: Orders * Telephone Encounter - Kassie Roth RN - 01/13/2022 2:09 PM EDT The following approved medication requests have been transmitted electronically. Signed Prescriptions Disp Refills Blood-Glucose Meter 1 Each 0 Si Each as directed for 1 day. Authorizing Provider: EMERSON MUJICA blood sugar diagnostic test strip 120 Strip 9 Si Strip four times daily. Use as instructed Authorizing Provider: EMERSON MUJICA Lancets lancets 120 Each 9 Si Each four times daily. Use as instructed Authorizing Provider: EMERSON MUJICA Pharmacy Information Pharmacy Address [facility] [id number] [place] [address] * Addendum Note - Emerson Mujica MD - 01/13/2022 1:48 PM EDT Addended by: EMERSON MUJICA on: 01/13/2022 01:48 PM Modules accepted: Orders * Telephone Encounter - Emerson Mujica MD - 01/13/2022 1:48 PM EDT Filed thank you * Addendum Note - Kassie Roth RN - 01/13/2022 12:39 PM EDT Addended by: KASSIE ROTH RN on: 01/13/2022 12:39 PM Modules accepted: Orders, SmartSet * Telephone Encounter - Kassie Roth RN - 01/13/2022 12:39 PM EDT Patient notified. Please file orders. Kassie Roth RN * Telephone Encounter - Emerson Mujica MD - 01/13/2022 12:31 PM EDT Yes I recommend checking BG 4x a day for 2 weeks and to send a my chart message in with her log to review * Telephone Encounter - Morenita Miller RN - 01/13/2022 11:44 AM EDT Patient was called and notified. States she does not have daycare for her children. Exclusively from the breast only and not pumping. Can not do 3 hour test. Briefly discussed checking blood sugars four times a day over a period of weeks as a possible option if SW recommended. Please advise. Morenita Miller RN * Telephone Encounter - Emerson Mujica MD - 01/13/2022 10:49 AM EDT See result note. 3 hr GTT ordered documented in this encounterPremier Health [facility]06-29-2022 Miscellaneous Notes* Quick Notes - Emerson Mujica MD - 01/13/2022 8:53 AM EDT SW- Rash under the breast that is pruritic. No pain, vb, lof. Good FM. PE: Gen- NAD, well appearing Skin- Yeast dermatitis under breasts Abd- Soft, gravid, NT, measuring S=D Ext- No edema See flowsheet A/p 26 wk gestation - Yeast dermatitis: Discussed ways to keep skin clean and dry. Miconazole cream sent in - 28 wk labs today - Plans on - PPBC: Discussed options and plans for POP. LARC declined, signed - Quit marijuana use once found out she was - Tdap next in person visit - Complete OB screening next visit - Plan for 32 wk growth US given obesity - Virtual visit in 2 wks Emerson Mujica DO documented in this encounterPremier Health [facility]06-29-2022 Instructions* Patient Instructions* Daly Cotto MA - 01/13/2022 8:41 AM EDT SEQUENTIAL SCREENINGS The [facility] offers sequential screenings for women who are interested in screenings for chromosomal abnormalities and certain defects during a . The sequential screen combinesultrasound and blood tests to determine the risk of chromosomal abnormalities, including Down's Syndrome (Trisomy 21) and Trisomy 18, as well as open neural tube defects including spina bifida. Ultrasound examination is performed between 11 weeks and 13 weeks gestational age. Blood tests are drawn after the ultrasound and again later in the between 15 and 21 weeks gestational age. Please let your physician know if you are interested in this testing. It will require an appointment withour survey cad technician. This is not an ultrasound performed by a physician in our office during a routine visit. SIGNS AND SYMPTOMS OF LABOR 1. Contractions every 10 minutes or more often 2. Clear, pink, or brownish fluid (water) leaking from vagina 3. Feeling that baby is pushing down, pressure 4. Low, dull backache 5. Cramps that feel like a period 6. Cramps with or without diarrhea If you notice any of the above symptoms, contact our office at [phone] and ask to speak with anurse. After hours, you can call doctors registry at [phone] OR call [facility] at [phone] ask to have the doctor speech therapist early intervention paged. If you consider this an emergency, dial 9- or go to your nearest emergency department. NEED HELP? Are you dealing with a violent or abusive relationship? Are you a victim of rape or sexual assult? Call [facility] ([place]) 24 hour Crisis Hotline: 408.842.5943 or 865-820-7335. MANUAL Your Guide to a Healthy manual is now on-line. Visit [email or web address] to download your free copy documented in this encounterPremier Health [facility]06-[facility]22 Miscellaneous Notes* Quick Notes - Emerson Mujica MD - 12/16/2021 8:34 AM EDT SW- Virtual visit today. Pt doing well. No pain, vb, lof. +FM PE: Gen- NAD, well appearing See flowsheet A/p 22 wk gestation - Discussed upcoming expectations - 28 wk labs ordered for next visit - Rh positive - Rx for BP cuff sent in - RTO 4 wks for 28 wk labs and visit Emerson Mujica DO documented in this encounter[facility] Miscellaneous Notes* Quick Notes - Emerson Mujica MD - 11/19/2021 9:26 AM EDT SW- Pt doing well. No KIM, ctx, pain, vb, lof. +FM. Just completed bachelors degree! PE: Gen- NAD, well appearing Abd- Gravid Ext- No edema See flowsheet A/p 18 wk gestation - Anatomy US today, final report pending - Doppler given for virtual visits given distance from office and difficulty with childcare. No BP available. Rx given for BP cuff - Discussed upcoming expectations and questions answered - RTO 4 wks Emerson Mujica DO documented in this encounterPrem[facility]22 Instructions* Patient Instructions* Neli Zelaya Ma - 11/19/2021 8:30 AM EDT SEQUENTIAL SCREENINGS The [facility] offers sequential screenings for women who are interested in screenings for chromosomal abnormalities and certain defects during a . The sequential screen combinesultrasound and blood tests to determine the risk of chromosomal abnormalities, including Down's Syndrome (Trisomy 21) and Trisomy 18, as well as open neural tube defects including spina bifida. Ultrasound examination is performed between 11 weeks and 13 weeks gestational age. Blood tests are drawn after the ultrasound and again later in the between 15 and 21 weeks gestational age. Please let your physician know if you are interested in this testing. It will require an appointment withour survey cad technician. This is not an ultrasound performed by a physician in our office during a routine visit. SIGNS AND SYMPTOMS OF LABOR 1. Contractions every 10 minutes or more often 2. Clear, pink, or brownish fluid (water) leaking from vagina 3. Feeling that baby is pushing down, pressure 4. Low, dull backache 5. Cramps that feel like a period 6. Cramps with or without diarrhea If you notice any of the above symptoms, contact our office at [phone] and ask to speak with anurse. After hours, you can call doctors registry at [phone] OR call [facility] at [phone] ask to have the doctor speech therapist early intervention paged. If you consider this an emergency, dial 9--1 or go to your nearest emergency department. NEED HELP? Are you dealing with a violent or abusive relationship? Are you a victim of rape or sexual assult? Call [facility] ([place]) 24 hour Crisis Hotline: 323.354.5953 or 613-055-5684. MANUAL Your Guide to a Healthy manual is now on-line. Visit [email or web address] to download your free copy documented in this encounterPrem[facility]04-28-2022 Miscellaneous Notes* Telephone Encounter - Morenita Miller RN - 11/12/2021 1:52 PM EDT Patient notified. Asking if the abdominal cramping is normal. Patient reported the cramping is upper abdominal. Advised patient that this could be caused by the vomiting. Offered patient an appointment for today for reassurance. Patient declined. SO doesn't get off work until 5 PM. She has a lab appointment tomorrow. Again offered her a visit. Patient declined. Advised to call with worsening symptoms or if she chooses to schedule a sooner appointment. Morenita Miller RN * Telephone Encounter - Cee Bradshaw APRN.CNM - 11/12/2021 12:49 PM EDT Here is what I found on : Considerations It is not known if ondansetron is present in breast milk. According to the carpenter mold, the decision to breastfeed during therapy should consider the risk of exposure, the benefits of to the infant, and the benefits of treatment to thepatient. Please let patient know that she can try Vit. B 6 2x day and add in Unisom 12.5 mg at night for nausea if she is not comfortable taking the Zofran. Cee Bradshaw APRN.CNM * Telephone Encounter - Morenita Miller RN - 11/12/2021 11:30 AM EDT Patient notified. States she is . Asking if Zofran is ok to take. * Telephone Encounter - Cee Bradshaw APRN.CNM - 11/12/2021 11:13 AM EDT Rx sent for Zofran 4 mg PO every 8 hours as needed for nausea. I hope she starts to feel better soon! Let us know if she cannot keep anything liquid or food down for 24 hours. Thank you. Cee Bradshaw APRN.CNM * Telephone Encounter - Kassie Roth RN - 11/12/2021 11:05 AM EDT 17w2d Started with N/V again this morning. States it has been a few weeks since she last felt this way. Able to keep water down for now, but nothing else so far. Vomited 6 times total today already. No sick contacts that she knows of. No fever. Having some mild mid abdominal cramping with it too. No bleeding or leaking fluid. Please advise. Kassie Roth RN documented in this encounterPrem[facility]04-06-2022 Miscellaneous Notes* Telephone Encounter - Claudia Moran RN - 10/21/2021 1:38 PM EDT Patient is 14w1d, she did not have NT ultrasound done. Claudia Moran RN documented in this encounterPrem[facility]04-01-2022 Miscellaneous Notes* Quick Notes - Emerson Mujica MD - 10/16/2021 8:32 AM EDT SW- Virtual visit today. No pain, vb, lof. She has no concerns today. Does not have help with childcare currently, so prefers virtual visits at this time. PE: Gen- NAD, well appearing A/p 13 wk gestation Declines aneuploidy screening. She would like to wait to come in or have her next visit until her anatomy US. To schedule anatomy US with visit after. Will give doppler and BP cuff at that time. Instructed her to have blood work completed. Emerson Mujica DO documented in this encounterPremier Health [facility]10-15-2021 NoteHNO ID: [id number] Author: Tigist Castillo MD Service: ? Author Type: Physician Type: Progress Notes Filed: 05/01/2021 5:03 PM Note Text: CARE CLINIC INITIAL CONSULT NAME: Wellington Elizabeth CHIEF COMPLAINT: Wellington Elizabeth is a 20 year old White Not female who is s/p with first degree perineal laceration and left labial laceration who is here for a consultation requested by Alona Maciel APRN.CNM for an opinion regarding wound dehiscence and vaginal pain. HISTORY OF PRESENT ILLNESS Pt reports she has been having pain with healing, sutures came undone 5 days . She also had BV which was treated. She is doing sitz baths and still painful. Using topical lidocaine. No stool softeners any longer. Obstetric History: Date of delivery: 03/26/21 Most recent delivery: Weight of the baby: 6 lbs 10oz Laceration or episiotomy: 1st degree and left labial [facility] How long did you push?: 1 hour Did you perform regular perineal massage in the third trimester of your ?: No Previous deliveries: Yes Previous deliveries: VAVD Any previous third or fourth degree lacerations/tears into anal sphincter?: no Any previous history of episiotomy?: No Weight of largest baby: 7lbs 7oz # 1 - Date: 04/06/19, Sex: Male, Weight: 3.374 kg (7 lb 7 oz), GA: 39w2d, Delivery: Vaginal, Vacuum (Extractor), Apgar1: None, Apgar5: None, Living: Living, Comments: Vacuum Assisted for maternal exaustion, EBL 500ml, 2nd degree perineal laceration, Apgars 8/9 # 2 - Date: 03/26/21, Sex: Female, Weight: 3.005 kg (6 lb 10 oz), GA: 37w6d, Delivery: Vaginal, Spontaneous, Apgar1: None, Apgar5: None, Living: Living, Comments: spontaneous labor, EBL 350mL, 1st degree perineal and left labial lacerations, loose nuchal cord x1 Is there anything else we should know about your delivery?: none How are you feeding your baby: . Are you having any problems? No Have you had pain since your delivery? Yes. Has the pain resolved? No. There is still pain with: Sitting. Are you taking anything for the pain? Ibuprofen Are you soaking your bottom (sitz bath)? Yes, 2 times per day. Are you taking anything to soften your stools? No Have your menstrual periods started? No LMP: Patient's last menstrual period was 07/04/2020 (exact date). Are you doing/using anything to prevent ? No - Abstaining Have you resumed intercourse since your delivery? No - Abstaining Did you have any pain with intercourse prior to your ? No [place] Scale Score: 0 Have you ever been diagnosed with depression or anxiety? No Urinary Symptoms: Are you leaking urine? No Did you leak urine during your ? No Did you leak urine before your ? Yes LADARIUS-6 Do you experience, and if so, how much are you bothered by frequent urination: 0- Not at all Do you experience, and if so, how much are you bothered by urine leakage related to a feeling of urgency? 0- Not at all Do you experience, and if so, how much are you bothered by urine leakage related to physical activity, coughing or sneezing? 1- Slightly Do you experience, and if so, how much are you bothered by small amounts of urine leakage (drops)? 0- Not at all Do you experience, and if so, how much are you bothered by difficulty emptying your bladder? 0- Not at all Do you experience, and if so, how much are you bothered by pain or discomfort in the lower abdominal or genital area? 1- Slightly LADARIUS-6 Score: 2 Pain: Justin Pain Questionnaire- Short Form Overall Pain Index (VAS): 51 mm Persistent Pain Index (PPI): 2- Discomforting Did you have any vulvar or vaginal pain prior to your ? No Defecatory Symptoms: Are you leaking stool? No Did you leak stool during your ? No Did you leak stool before your ? No Are you leaking flatus (gas)? No Did you leak gas during your ? No Did you leak gas before your ? No [place] Stool Chart stool type in last 7 days: Type 3: Like a sausage but with cracks on its surface Fecal Incontinence Severity Score: FISI Gas: (0) Never Mucus: (0) Never Liquid stool: (0) Never Solid stool: (0) Never FISI Score: 0 Do you leak stool while trying to get to the toilet? No Do you leak stool when you have no sensation that you need to defecate? No Do you leak stool only after having a bowel movement? No Do you wear a pad because of stool leakage? No Do you have fecal urgency? No Health History: PAST MEDICAL HISTORY Diagnosis Date - Asthma PAST SURGICAL HISTORY Procedure Laterality Date - PAST SURGICAL HISTORY OF wisdom teeth FAMILY HISTORY Problem Relation Age of Onset - Alcohol/Drug Mother drug overdose - No Known Problems Father - No Known Problems Sister - No Known Problems Brother - No Known Problems Maternal Grandmother - (more content not included)...[facility] History of Present illness Narrative* Shanti Esposito (Rt), [facility] - 07/28/2020 8:00 AM EST Radiology Service Progress Note PATIENT NAME: Wellington Elizabeth DATE OF SERVICE: July 28, 2020 TIME: 8:08 AM PATIENT IDENTITY VERIFICATION COMPLETED USING TWO (2) IDENTIFIERS: Name and Date of confirmedby patient verbally. FALL SCREENING: Has the patient had 2 falls in the last year or 1 fall with injury or currently using an Ambulatory Assistive Device (Walker, Cane, Wheelchair, Crutches, etc.)? No PATIENT GENDER DATA: Female. status: : No status: NO. PATIENT RELEVANT IMPLANT DATA REVIEWED: Not Applicable RADIOLOGY DEPARTMENT: General X-ray: Exam(s) Completed: Chest X-Ray PERIPHERAL IV DATA: Not applicable SIGNED BY: RT Bryan July 28, 2020 8:08 AM documented in this encounterPrem[facility]-15-2019 History of Past illness Narrative* Problem Noted Date Resolved Date Asthma affecting in first trimester 04/16/2019 Overview: 09/01/18 Continue to monitor. No hemabate. SW documented as of this encounter (statuses as of 10/16/2021) [address]15-2019 History of Past illness Narrative* Problem Noted Date Resolved Date Asthma affecting in first trimester 04/16/2019 Overview: 09/01/18 Continue to monitor. No hemabate. SW documented as of this encounter (statuses as of 10/22/2021) [address]15-2019 History of Past illness Narrative* Problem Noted Date Resolved Date Asthma affecting in first trimester 04/16/2019 Overview: 09/01/18 Continue to monitor. No hemabate. SW documented as of this encounter (statuses as of 11/12/2021) [address]15-2019 History of Past illness Narrative* Problem Noted Date Resolved Date Asthma affecting in first trimester 04/16/2019 Overview: 09/01/18 Continue to monitor. No hemabate. SW documented as of this encounter (statuses as of 11/19/2021) [address]15-2019 History of Past illness Narrative* Problem Noted Date Resolved Date Asthma affecting in first trimester 04/16/2019 Overview: 09/01/18 Continue to monitor. No hemabate. SW documented as of this encounter (statuses as of 11/25/2021) [address]15[address]2019 History of Past illness Narrative* Problem Noted Date Resolved Date Asthma affecting in first trimester 04/16/2019 Overview: 09/01/18 Continue to monitor. No hemabate. SW documented as of this encounter (statuses as of 12/16/2021) [facility] History of Past illness Narrative* Problem Noted Date Resolved Date Asthma affecting in first trimester 04/16/2019 Overview: 09/01/18 Continue to monitor. No hemabate. SW documented as of this encounter (statuses as of 01/13/2022) [address]15[address]2019 History of Past illness Narrative* Problem Noted Date Resolved Date Asthma affecting in first trimester 04/16/2019 Overview: 09/01/18 Continue to monitor. No hemabate. SW documented as of this encounter (statuses as of 01/13/2022) [address]15[address]2019 History of Past illness Narrative* Problem Noted Date Resolved Date Asthma affecting in first trimester 04/16/2019 Overview: 09/01/18 Continue to monitor. No hemabate. SW documented as of this encounter (statuses as of 01/14/2022) [address]15[address]2019 History of Past illness Narrative* Problem Noted Date Resolved Date Asthma affecting in first trimester 04/16/2019 Overview: 09/01/18 Continue to monitor. No hemabate. SW documented as of this encounter (statuses as of 01/19/2022) [address]15[address]2019 History of Past illness Narrative* Problem Noted Date Resolved Date Asthma affecting in first trimester 04/16/2019 Overview: 09/01/18 Continue to monitor. No hemabate. SW documented as of this encounter (statuses as of 01/19/2022) [address]15[address]2019 History of Past illness Narrative* Problem Noted Date Resolved Date Asthma affecting in first trimester 04/16/2019 Overview: 09/01/18 Continue to monitor. No hemabate. SW documented as of this encounter (statuses as of 01/19/2022) [address]15[address]2019 History of Past illness Narrative* Problem Noted Date Resolved Date Asthma affecting in first trimester 04/16/2019 Overview: 09/01/18 Continue to monitor. No hemabate. SW documented as of this encounter (statuses as of 01/29/2022) [address]15[address]2019 History of Past illness Narrative* Problem Noted Date Resolved Date Asthma affecting in first trimester 04/16/2019 Overview: 09/01/18 Continue to monitor. No hemabate. SW documented as of this encounter (statuses as of 02/01/2022) [address]15[address]2019 History of Past illness Narrative* Problem Noted Date Resolved Date Asthma affecting in first trimester 04/16/2019 Overview: 09/01/18 Continue to monitor. No hemabate. SW documented as of this encounter (statuses as of 02/16/2022) [address]15[address]2019 History of Past illness Narrative* Problem Noted Date Resolved Date Asthma affecting in first trimester 04/16/2019 Overview: 09/01/18 Continue to monitor. No hemabate. SW documented as of this encounter (statuses as of 02/17/2022) [address]15[address]2019 History of Past illness Narrative* Problem Noted Date Resolved Date Asthma affecting in first trimester 04/16/2019 Overview: 09/01/18 Continue to monitor. No hemabate. SW documented as of this encounter (statuses as of 02/26/2022) [address]15[address]2019 History of Past illness Narrative* Problem Noted Date Resolved Date Asthma affecting in first trimester 04/16/2019 Overview: 09/01/18 Continue to monitor. No hemabate. SW documented as of this encounter (statuses as of 03/12/2022) [address]15[address]2019 History of Past illness Narrative* Problem Noted Date Resolved Date Asthma affecting in first trimester 04/16/2019 Overview: 09/01/18 Continue to monitor. No hemabate. SW documented as of this encounter (statuses as of 03/25/2022) [facility] History of Past illness Narrative* Problem Noted Date Resolved Date Asthma affecting in first trimester 04/16/2019 Overview: 09/01/18 Continue to monitor. No hemabate. SW documented as of this encounter (statuses as of 03/30/2022) [address]15[address]2019 History of Past illness Narrative* Problem Noted Date Resolved Date Asthma affecting in first trimester 04/16/2019 Overview: 09/01/18 Continue to monitor. No hemabate. SW documented as of this encounter (statuses as of 03/31/2022) [place] [address]-15-2019 History of Past illness Narrative* Problem Noted Date Resolved Date Asthma affecting in first trimester 04/16/2019 Overview: 09/01/18 Continue to monitor. No hemabate. SW documented as of this encounter (statuses as of 04/06/2022) [address]2019 History of Past illness Narrative* Problem Noted Date Resolved Date Asthma affecting in first trimester 04/16/2019 Overview: 09/01/18 Continue to monitor. No hemabate. SW documented as of this encounter (statuses as of 04/28/2022) [facility] Diagnosis 13 weeks gestation of - Primary state, incidental Supervision of other normal , antepartum documented in this encounter [facility]* Diagnosis Encounter for anatomic survey- Primary 18 weeks gestation of state, incidental Obesity complicating , second trimester documented in this encounter [facility]* Diagnosis 18 weeks gestation of - Primary state, incidental documented in this encounter [facility]* Diagnosis 22 weeks gestation of - Primary state, incidental Supervision of other normal , antepartum documented in this encounter [facility]* Diagnosis 26 weeks gestation of - Primary state, incidental Supervision of other normal , antepartum Marijuana use Cannabis abuse, unspecified Yeast dermatitis Candidiasis of skin and nails documented in this encounter [facility]* Diagnosis Abnormal glucose complicating - Primary Abnormal maternal glucose tolerance, complicating , childbirth, or the puerperium, unspecified as to episode of care 26 weeks gestation of state, incidental [facility]* Diagnosis Elevated glucose tolerance test- Primary Impaired glucose tolerance test documented in this encounter [facility]* Diagnosis 27 weeks gestation of - Primary state, incidental Irritant dermatitis Contact dermatitis and other eczema, due to unspecified cause Yeast dermatitis Candidiasis of skin and nails documented in this encounter [facility]* Diagnosis Obesity in - Primary Obesity complicating , childbirth, or the puerperium, unspecified as to episode of care or not applicable documented in this encounter [facility]* Diagnosis Skin rash- Primary Rash and other nonspecific skin eruption 28 weeks gestation of state, incidental [facility]* Diagnosis 31 weeks gestation of - Primary state, incidental [facility]* Diagnosis 32 weeks gestation of - Primary state, incidental Supervision of high risk in third trimester Unspecified high-risk PUPP (pruritic urticarial papules and plaques of ) Other specified complication of , unspecified as to episode of care documented [facility] this encounter [facility]* Diagnosis Supervision of high risk in third trimester- Primary Unspecified high-risk PUPP (pruritic urticarial papules and plaques of ) Other specified complication of , unspecified as to episode of care 34 weeks gestation of state, incidental [facility]* Diagnosis Supervision of high risk in third trimester- Primary Unspecified high-risk PUPP (pruritic urticarial papules and plaques of ) Other specified complication of , unspecified as to episode of care 36 weeks gestation of state, incidental documented in this encounter [facility]* Diagnosis Onset Date Resolution Status 37 weeks gestation of acute Care and examination of lactating mother acute Laceration, obstetrical, first degree acute SROM (spontaneous rupture of membranes) acute (spontaneous vaginal delivery) acute [facility] Work Phone: Evaluation note* Diagnosis care and examination of lactating mother- Primary documented [facility] this encounter [facility]* Diagnosis care and examination- Primary Routine follow-up Encounter for initial prescription of contraceptive pills General counseling for prescription of oral contraceptives documented in this encounter [facility] note* Diagnosis Acute upper respiratory infection- Primary Acute upper respiratory infections of unspecified site documented in this encounter [facility] Work Phone: Evaluation note* Diagnosis Cough Wheezing documented in this encounter [facility]* Diagnosis Encounter for gynecological examination (general) (routine) without abnormal findings- Primary Screening for cervical cancer Screening for malignant neoplasm of the cervix Encounter for screening for human papillomavirus (HPV) Special screening examination for human papillomavirus (HPV) Vaginal discharge Leukorrhea, not specified as infective documented in this encounter [facility] note* Diagnosis Sore throat- Primary Acute pharyngitis Viral illness Unspecified viral infection, in conditions classified elsewhere and of unspecified site documented in this encounter [facility] noteNo assessment information availableWClinton Memorial Hospital Work Phone: Reason for referral (narrative)* Diagnostic Procedure Only (Routine) - Authorized Specialty Diagnoses / Procedures Referred By Kendy tim Referred To Contact [facility] Diagnoses Obesity in Procedures OBSTETRIC ULTRASOUND WHI US PREG UTERUS AFTER 1ST TRIMEST GESTATION Alona Maciel APRN.CNM [address] [place] [address] [facility] [address] [place] [id number] Referral ID Status Reason Start Date Expiration Date Visits Requested Visits Authorized [id number] Authorized Auto-Generat ed Referral 01/29/2022 01/27/2023 1 1 [facility] for referral (narrative)No reason for referral information availableWClinton Memorial Hospital Work Phone: Summary Purpose Family History No Family History Records Found Relationship Condition Age at Onset Recorded Date/T jd mother Drug overdose Unknown Advance Directives No Advanced Directives Records Found Advance Directive Response Recorded Date/ Time Living Will No March 30, 2022 5:12pm Power of Boomswing Operator No March 5:12pm Reason for Referral Specialty Diagnoses / Procedures Referred By Contac t Referred To Contact Dermatology Diagnoses Skin rash 28 weeks gestation of Procedures CONSULT TO DERMATOLOGY Emerson Mujica MD [address] [place] [address] Referral ID Status Reason Start Date Expiration Date Visits Requested Visits Authorized [id number] Ref Not Required PCP Requested Referral 02/01/2022 02/01/2023 1 1 Chief Complaint and Reason for Visit Chief Complaint VAG DEL Reason for Visit 37 weeks gestation o f Care and examination of lactating mother Laceration, obstetrical, first degree SROM (spontaneous rupture of membranes) (spontaneous vaginal delivery) Additional Source Comments INFORMATION SOURCE (unrecogn ized section and content) DATE CREATED AUTHOR 12/20/2019 [facility] DATE CREATED AUTHOR AUTHOR'S ORGANIZ ATION 06/11/2020 [facility] DATE CREATED AUTHOR AUTHOR'S ORGANIZ ATION 05/03/2021 [facility] DATE CREATED AUTHOR AUTHOR'S ORGANIZ ATION 12/29/2023 [facility] DATE CREATED AUTHOR AUTHOR'S ORGANIZ ATION 07/09/2024 [facility] DATE CREATED AUTHOR AUTHOR'S ORGANIZ ATION 10/26/2024 [facility] DATE CREATED AUTHOR AUTHOR'S ORGANIZ ATION 11/04/2024 [facility] Source Comments (unrecognize d section and content) In the event this informatio n is protected by the Federal Confidentiality of Alcohol and Drug Abuse Patient Records regulations: The Federal rules restrict any use of the information to criminally investigate or prosecute any alcohol or drug abuse patient.[facility] the event this information is protected by the Federal Confidentiality of Alcohol and Drug Abuse Patient Records regulations: The Federal rules restrict any use of the information to criminally investigate or prosecute any alcohol or drug abuse patient.[facility] NorthIn the event this information is protected by the Federal Confidentiality of Alcohol and Drug Abuse Patient Records regulations: The Federal rules restrict any use of the information to criminally investigate or prosecute any alcohol or drug abuse patient.[facility] NorthIn the event this information is protected by the Federal Confidentiality of Alcohol and Drug Abuse Patient Records regulations: The Federal rules restrict any use of the information to criminally investigate or prosecute any alcohol or drug abuse patient.[facility] NorthIn the event this information is protected by the Federal Confidentiality of Alcohol and Drug Abuse Patient Records regulations: The Federal rules restrict any use of the information to criminally investigate or prosecute any alcohol or drug abuse patient.[facility] NorthIn the event this information is protected by the Federal Confidentiality of Alcohol and Drug Abuse Patient Records regulations: The Federal rules restrict any use of the information to criminally investigate or prosecute any alcohol or drug abuse patient.[facility] NorthIn the event this information is protected by the Federal Confidentiality of Alcohol and Drug Abuse Patient Records regulations: The Federal rules restrict any use of the information to criminally investigate or prosecute any alcohol or drug abuse patient.[facility] NorthIn the event this information is protected by the Federal Confidentiality of Alcohol and Drug Abuse Patient Records regulations: The Federal rules restrict any use of the information to criminally investigate or prosecute any alcohol or drug abuse patient.[facility] NorthIn the event this information is protected by the Federal Confidentiality of Alcohol and Drug Abuse Patient Records regulations: The Federal rules restrict any use of the information to criminally investigate or prosecute any alcohol or drug abuse patient.[facility] NorthIn the event this information is protected by the Federal Confidentiality of Alcohol and Drug Abuse Patient Records regulations: The Federal rules restrict any use of the information to criminally investigate or prosecute any alcohol or drug abuse patient.[facility] NorthIn the event this information is protected by the Federal Confidentiality of Alcohol and Drug Abuse Patient Records regulations: The Federal rules restrict any use of the information to criminally investigate or prosecute any alcohol or drug abuse patient.[facility] NorthIn the event this information is protected by the Federal Confidentiality of Alcohol and Drug Abuse Patient Records regulations: The Federal rules restrict any use of the information to criminally investigate or prosecute any alcohol or drug abuse patient.[facility] NorthIn the event this information is protected by the Federal Confidentiality of Alcohol and Drug Abuse Patient Records regulations: The Federal rules restrict any use of the information to criminally investigate or prosecute any alcohol or drug abuse patient.[facility] NorthIn the event this information is protected by the Federal Confidentiality of Alcohol and Drug Abuse Patient Records regulations: The Federal rules restrict any use of the information to criminally investigate or prosecute any alcohol or drug abuse patient.[facility] NorthIn the event this information is protected by the Federal Confidentiality of Alcohol and Drug Abuse Patient Records regulations: The Federal rules restrict any use of the information to criminally investigate or prosecute any alcohol or drug abuse patient.[facility] NorthIn the event this information is protected by the Federal Confidentiality of Alcohol and Drug Abuse Patient Records regulations: The Federal rules restrict any use of the information to criminally investigate or prosecute any alcohol or drug abuse patient.[facility] NorthIn the event this information is protected by the Federal Confidentiality of Alcohol and Drug Abuse Patient Records regulations: The Federal rules restrict any use of the information to criminally investigate or prosecute any alcohol or drug abuse patient.[facility] NorthIn the event this information is protected by the Federal Confidentiality of Alcohol and Drug Abuse Patient Records regulations: The Federal rules restrict any use of the information to criminally investigate or prosecute any alcohol or drug abuse patient.[facility] NorthIn the event this information is protected by the Federal Confidentiality of Alcohol and Drug Abuse Patient Records regulations: The Federal rules restrict any use of the information to criminally investigate or prosecute any alcohol or drug abuse patient.[facility] NorthIn the event this information is protected by the Federal Confidentiality of Alcohol and Drug Abuse Patient Records regulations: The Federal rules restrict any use of the information to criminally investigate or prosecute any alcohol or drug abuse patient.[facility] NorthIn the event this information is protected by the Federal Confidentiality of Alcohol and Drug Abuse Patient Records regulations: The Federal rules restrict any use of the information to criminally investigate or prosecute any alcohol or drug abuse patient.[facility] NorthIn the event this information is protected by the Federal Confidentiality of Alcohol and Drug Abuse Patient Records regulations: The Federal rules restrict any use of the information to criminally investigate or prosecute any alcohol or drug abuse patient.[facility] NorthIn the event this information is protected by the Federal Confidentiality of Alcohol and Drug Abuse Patient Records regulations: The Federal rules restrict any use of the information to criminally investigate or prosecute any alcohol or drug abuse patient.[facility] NorthIn the event this information is protected by the Federal Confidentiality of Alcohol and Drug Abuse Patient Records regulations: The Federal rules restrict any use of the information to criminally investigate or prosecute any alcohol or drug abuse patient.[facility] NorthIn the event this information is protected by the Federal Confidentiality of Alcohol and Drug Abuse Patient Records regulations: The Federal rules restrict any use of the information to criminally investigate or prosecute any alcohol or drug abuse patient.[facility] NorthIn the event this information is protected by the Federal Confidentiality of Alcohol and Drug Abuse Patient Records regulations: The Federal rules restrict any use of the information to criminally investigate or prosecute any alcohol or drug abuse patient.[facility] NorthIn the event this information is protected by the Federal Confidentiality of Alcohol and Drug Abuse Patient Records regulations: The Federal rules restrict any use of the information to criminally investigate or prosecute any alcohol or drug abuse patient.[facility] NorthIn the event this information is protected by the Federal Confidentiality of Alcohol and Drug Abuse Patient Records regulations: The Federal rules restrict any use of the information to criminally investigate or prosecute any alcohol or drug abuse patient.[facility] NorthIn the event this information is protected by the Federal Confidentiality of Alcohol and Drug Abuse Patient Records regulations: The Federal rules restrict any use of the information to criminally investigate or prosecute any alcohol or drug abuse patient.[facility] Reason for Visit (unrecogniz ed section and content) Reason Comments Care Reason Comments Patient Update Reason Comments US Specialty Diagnoses / Procedures Referred By Kendy tim Referred To Contact [facility] Diagnoses Encounter for supervision of other normal in first trimester Procedures OBSTETRIC ULTRASOUND WHI US PREG UTERUS AFTER 1ST TRIMEST GESTATION Emerson Mujica MD [address] [place] [address] [facility] [address] [place] [address] Referral ID Status Reason Start Date Expiration Date V isits Requested Visits Authorized [id number] Closed Auto-Generate d Referral 09/17/2021 09/17/2022 1 1 Reason Onset Date Comments Care 11/19/2021 Reason Onset Date Comments Care 01/13/2022 Reason Comments Orders Reason Comments 3 HR GTT Order Reason Comments Insurance Authorization Reason Comments Follow Up Reason Comments Care Reason Comments Patient Question Reason Comments Received Outside Medical Records Reason Onset Date Comments Care 02/26/2022 Reason Onset Date Comments Care 03/25/2022 Reason Comments Water Broke Reason Comments Ob Delivery Note Reason Comments Routine Reason Comments Diarrhea Reason Comments Sore Throat Sore throat/tightnes s x 3 days Reason Comments Well Woman Reason Comments Results Reason Comments Sore Throat KIM x3 days Care Teams (unrecognized sec tion and content) Water Resources Program Director Relationship Specialty Start Date End Date Maira Benitez MD [address] [address] PCP - General Pediatrics 12/08/17 03/10/21 Water Resources Program Director Relationship Specialty Start Date End Date Chirag Temple MD [address] [place] [address] PCP - General Internal Medicine 07/05/24 Team Status: Active Member Role Status Dates Dr. Maira Benitez MD Family Provider Active Chirag Temple MD Primary Care Provider Active Team Status: Inactive Member Role Status Dates Chirag Temple MD Primary Care Provider Active St art: October 29, 2024 End: October 29, 2024 Chirag Temple MD Attending Provider Active Start : October 29, 2024 End: October 29, 2024 Chirag Temple MD Referring Provider Active Start : October 29, 2024 End: October 29, 2024 Goals (unrecognized section and content) Goals may be documented in a n alternate section FOR RECORDS PERTAINING TO PATIENTS WHO ARE OR HAVE BEEN ENROLLED IN A CHEMICAL DEPENDENCY/SUBSTANCEABUSE PROGRAM, SOME INFORMATION MAY BE OMITTED. This clinical summary was aggregated from multiple sources. Caution should be exercised in using it in the provision of clinical care. This summary normalizes information from multiple sources, and as a consequence, information in this document may materially change the coding, format and clinical context of patient data. In addition, data may be omitted in some cases. CLINICAL DECISIONS SHOULD BE BASED ON THE PRIMARY CLINICAL RECORDS. [employer] provides no warranty or guarantee of the accuracy or completeness of information in this document.
[2024-12-20 00:43] LABS: Internal QC Validated? YES +Cl - CLEAR BKGD; Pregnancy, Serum, hCG Quali. NEGATIVE Negative
[2024-12-20 00:45] LABS: Anion Gap 11 (5-15); BUN 9 mg/dL (4-19); BUN/Creat Ratio 16.6 RATIO (10-20); Calcium,Total 9.2 mg/dL (7.6-11.0); Carbon Dioxide 24.7 mmol/L (21.0-32.0); Chloride 101 mmol/L (98-108); Creatinine, Serum 0.54 mg/dL (0.70-1.20); EST Glomerular Filtration Rate 131 (>60); Estimated Creatinine Clearance 158.69 ml/min (50-250); Glucose 103 mg/dL (70-99); Potassium 4.1 mmol/L (3.3-5.1); Sodium Level 137 mmol/L (133-145)
[2024-12-20 01:00] VITALS: BP 112/51; PULSE 70; RESP 16; TEMP 36.7; O2SAT 98
[2024-12-20] MEDS: 0.9% Normal Saline (1000mL) 1,000 ML 999 ML IV (01:00)
--- NOTE | 2024-12-20 01:21 | EDS_ITS ---
HPI History of Present Illness Chief Complaint: Dizziness Informant: patient and spouse/S.O. Narrative Narrative: Patient is a 24-year-old female with past medical history of anxiety. She states that throughout the day today she is felt dizzy which she describes more as a lightheaded/passing out sensation. She states there has been no chest pain or palpitations and she denies any bouts of nausea vomiting diarrhea or significant/heavy menstrual cycles. She states that symptoms do not really worsen with position change. She reports there has been a recent increase to her BuSpar dose to 10 mg 3 times a day. She denies any recent head trauma. She states that as her symptoms have persisted and she is unsure why she presents for evaluation [facility] Medical History (Updated 12/20/24 @ 05:[address] Puneet Mccullough, DO) Allergic blepharitis Care and examination of lactating mother Laceration, obstetrical, first degree (spontaneous vaginal delivery) Lumbar strain Neck pain Asthma Home Medications ?Medication ?Instructions ?Recorded ?Last Taken ?Type buspirone 10 mg tablet 10 mg PO TID 12/19/24 Unknow n History norgestimate 0.25 mg-ethinyl 1 tab PO DAILY 12/19/24 U nknown History estradiol 0.035 mg tablet (Sprintec (28)) Allergy/AdvReac Type Severity Reaction Status Date / Time dextromethorphan (From AdvReac Other Verified 12/19/24 22:22 [place]app Cold-Congestion) diphenhydramine (From AdvReac Other Verified 12/19/24 22:22 [employer]etapp Cold-Congestion) guaifenesin (From Dimetapp AdvReac Other Verified 12/19/24 22:22 Cold-Congestion) phenylephrine (From Dimetapp AdvReac Other Verified 12/19/24 22:22 Cold-Congestion) pseudoephedrine (From AdvReac Other Verified 12/19/24 22:22 Dimetapp Cold-Congestion) Family History Mother Overdose Surgical History H/O wisdom tooth extraction Social History household members: family housing: house number of children: 1 current occupational status: student current occupation: homemaker/student- finishing up BA in business pets and animals: Yes Smoking Status: Current every day smoker tobacco type: cigarettes and e-cigaret radha second hand exposure: Yes alcohol intake: never substance use type: former substance user Date of last use: 2018- marijuana seatbelt use: always do you feel safe at home: Yes additional social history: Inna GOINS ROS ED Constitutional Constitutional ED: Denies chills or fever(s) Eyes Eyes: Denies blurry vision, change in vision or diplopia ENT ENT ED: Reports other Details: Negative tinnitus ; Denies ear pain or sore throat Cardiovascular Cardiovascular: Reports other Details: Positive lightheadedness/dizziness ; Denies chest pain, palpitations or racing heartbeat Respiratory/Chest Respiratory/Chest: Denies cough or dyspnea Gastrointestinal Gastrointestinal: Denies abdominal pain, diarrhea, melena, nausea or vomiting Genitourinary Genitourinary ED: Denies dysuria or hematuria Musculoskeletal Musculoskeletal: Denies myalgias Integumentary Denies rash Neurologic Neurologic: Denies headache(s), paresthesias or weakness Hematologic/Lymphatic Hematologic/Lymphatic: Denies easy bleeding or easy bruising EXAM Physical Exam Const Vital Signs: 12/19/24 22:22 12/19/24 23:24 12/20/24 01:00 Temperature 96.9 F L Temperature Source Temporal Pulse Rate 78 70 Pulse Rate [Lying] 62 Pulse Rate [Sitting (for 1 minute prior to obtaining)] 74 Pulse Rate [Standing (for 1 minute prior to obtaining)] 70 Respiratory Rate 18 16 Blood Pressure 146/97 H 112/51 L Blood Pressure [Lying] 102/55 L Blood Pressure [Sitting (for 1 minute prior to obtaining)] 114/72 Blood Pressure [Standing (for 1 minute prior to obtaining)] 107/69 Blood Pressure Mean 113 71 Blood Pressure Mean [Lying] 70 Blood Pressure Mean [Sitting (for 1 minute prior to obtaining)] 86 Blood Pressure Mean [Standing (for 1 minute prior to obtaining)] 81 Pulse Ox 99 98 Oxygen Delivery Method Room Air Room Air 12/20/24 01:00 Temperature 98.0 F Temperature Source Pulse Rate 70 Pulse Rate [Lying] Pulse Rate [Sitting (for 1 minute prior to obtaining)] Pulse Rate [Standing (for 1 minute prior to obtaining)] Respiratory Rate 16 Blood Pressure 112/51 L Blood Pressure [Lying] Blood Pressure [Sitting (for 1 minute prior to obtaining)] Blood Pressure [Standing (for 1 minute prior to obtaining)] Blood Pressure Mean 71 Blood Pressure Mean [Lying] Blood Pressure Mean [Sitting (for 1 minute prior to obtaining)] Blood Pressure Mean [Standing (for 1 minute prior to obtaining)] Pulse Ox 98 Oxygen Delivery Method Positive well nourished and well developed General Appearance ED: well developed; Negative for pallor HEENT Reports dry mucous membranes HEENT Narrative: Normocephalic atraumatic Mucous membranes are dry and tacky No tongue or lip swelling no oral lesions no airway edema or compromise No secondary findings in the posterior pharynx consistent with infection Mouth ED: Yes dry mucous membranes Mouth: dry mucous membranes Eyes PERRL and EOMs intact bilaterally General Eye ED: Negative for scleral icterus Neck supple Neck Narrative: No nuchal rigidity or meningeal signs Resp normal respiratory effort and clear to auscultation bilaterally Cardio regular rate and regular rhythm Rate: other Other Details: Regular rate and rhythm without murmurs rubs or gallop Radial and carotid pulses are equal and symmetric GI normal to inspection, nondistended, normoactive bowel sounds, non-tender, non- distended and no masses Auscultation: normoactive bowel sounds Palpation: soft Extremity normal to inspection Extremity Narrative: No asymmetric edema no pitting edema negative Homans' sign bilaterally Neuro oriented x3, CN's II-XII intact bilaterally and no sensory deficits noted Neuro Narrative: GCS of 15 Cranial nerves II through XII are grossly intact without focal neurologic deficit No pronator drift no dysmetria no truncal ataxia NIH stroke scale score of 0 No horizontal nystagmus noted Negative Hallpike Felix exam Sensorium / Orientation: alert Motor Exam: strength 5/5 throughout Psych mental status grossly normal Skin no rashes or lesions noted, no wounds and No skin turgor normal Skin Narrative: Skin turgor slightly increased General Skin Exam: Negative for jaundice or pallor MDM MDM MDM Narrative Medical decision making narrative: Patient arrived to the ER mildly hypertensive but otherwise with stable vitals. She reported dizziness which she describes more as a lightheaded sensation. Physical exam shows dehydration and there is concern for orthostasis. Patient denies any significant blood loss but there is concern for acute blood loss anemia as a cause of her symptoms as well or even possible complication. There is concern for acute kidney injury or electrolyte abnormality as well. Blood work revealed no clinically significant finding. Technically orthostatic vitals were negative. After receiving 1 L of IV hydration however the patient reported feeling better. In order to rule out a spontaneous subarachnoid or subdural hemorrhage or brain mass a CT was ordered. This also revealed no acute findings. There is chance that the increase BuSpar dose has led to her worsening dizziness as the side effect of dizziness is present and over 10% of people who take the medication. However she is only on 30 mg a day which is not a significant/elevated dose. Therefore at this time the patient will be discharged as her workup is negative for any acute findings and she is able to ambulate with a steady gait. She will keep yourself well- hydrated and discuss potential medication reaction with her family doctor. History & Record Review Discussion w/independent historian: Patient and Significant other Lab Data Attestation: I reviewed the patient's lab results. Labs: Laboratory Results - last 24 hr 12/19/24 22:28 WBC 10.0 RBC 4.30 Hgb 13.7 Hct 38.9 MCV 90.5 MCH 31.9 MCHC 35.2 RDW Std Deviation 39.5 RDW Coeff of Jamilah 12.1 Plt Count 271 MPV 10.9 Immature Gran % (Auto) 0.400 Neut % (Auto) 67.8 Lymph % (Auto) 19.4 Fannin % (Auto) 9.0 Eos % (Auto) 2.7 Baso % (Auto) 0.7 Absolute Neuts (auto) 6.7 Absolute Lymphs (auto) 1.93 Nucleated RBC % 0 Sodium 137 Potassium 4.1 Chloride 101 Carbon Dioxide 24.7 Anion Gap 11 BUN 9 Creatinine 0.54 L Estim Creat Clear Calc 158.69 Est GFR (MDRD) Non-Af 131 BUN/Creatinine Ratio 16.6 Glucose 103 H Calcium 9.2 Serum , Qual NEGATIVE Radiography Diagnostic Testing: Clinical Impression(s) from Imaging Studies Brain CT 12/20/24 00:12 IMPRESSION: No acute intracranial abnormality. Reading Location: [facility] Discharge Plan Triage Chief Complaint: Dizziness ED Provider: Puneet Mccullough Dx/Rx/DC Orders Clinical Impression: Dizziness, Mild dehydration, Anxiety Instructions: ED Dehydration (Adult), ED Dizziness, Uncertain Cause Prescriptions: No Action norgestimate-ethinyl estradiol [Sprintec (28)] 0.25-0.035 mg tablet 1 tab PO DAILY Patient Comments: will start when next period starts buspirone 10 mg tablet 10 mg PO TID Primary Care Provider: Chirag Joyner Referrals: Chirag Joyner MD [Primary Care Provider] - Activity Restrictions/Additional Instructions: Your workup today did not reveal any clinically significant findings. However your physical exam indicate dizziness could be related to mild dehydration or potentially from a disease known as postural orthostatic tachycardic syndrome (POTS). Please keep yourself well-hydrated and return to the ER should you have any further concerns Print Language: Korean Disposition Disposition: Home, Self Care Discharge Date/Time: 12/20/24 01:38
== END 2024-12-20 01:38 | disposition home or self-care (01) ==
PROVIDERS: Emergency Provider Emergency Medicine; PCP Family Medicine; Visit Provider Emergency Medicine
DX: R42 Dizziness and giddiness (principal); E86.0 Dehydration; F41.9 Anxiety disorder, unspecified; F17.210 Nicotine dependence, cigarettes, uncomplicated
CPT/HCPCS: 70450; 80048; 84703; 85025; 96360; 99284; A4216

== ENCOUNTER → 2025-02-05 | Outpatient (CLI) | payer MEDICAID, SELFPAY ==
[2025-02-04 11:26] LABS: Internal QC Validated? YES +Cl - CLEAR BKGD; Pregnancy, Serum, hCG Quali. NEGATIVE Negative
[2025-02-04 11:27] LABS: Record Kit Lot#, Serum Preg. 962302
--- NOTE | 2025-02-05 13:50 | PCM.TILTTABL ---
Staff Staff: Roshni Boyd and Barbara Rice Summary Pre Test Resting HR: 85 Pre Test Resting BP: 120/79 Minimum Test HR: 72 Maximum Test HR: 90 Minimum Test BP: 106/80 Maximum Test BP: 120/79 Reason for Test Termination: Reached Maximum Test Time Physician Tilt Table Report Patient's Physicians Primary Care Physician: Chirag Joyner Indications/Diagnosis: Dizziness and lightheadedness Procedure Comments: The patient was brought to the noninvasive lab in the postabsorptive nonsedated state. Initial vitals were obtained the initial EKG demonstrated sinus rhythm with a rate of 72 bpm the initial heart rate on standing was 85 bpm with a blood pressure of 120/79 mmHg. The patient was in the 70 degree head upright tilt position for a total duration of 30 minutes and maintained sinus rhythm with no significant arrhythmias noted. Blood pressure measurements were obtained throughout the recording time. Heart rate remained in the 80s and blood pressure in the low 100s with no significant symptomatology other than occasional blurred vision. After the appropriate 30-minute period the patient was put in the recumbent position and blood pressure and heart rate monitored. Summary: Conclusion: Head upright tilt test with no significant symptomatology present. No significant arrhythmias noted.
[2025-02-05 13:55] VITALS: BP 106/80; BP 120/79
== END | disposition home or self-care (01) ==
LOC: CVS 10:15
PROVIDERS: PCP Family Medicine; Referring Provider Family Medicine; Visit Provider Family Medicine
DX: R42 Dizziness and giddiness (principal)
CPT/HCPCS: 36415; 84703; 93660

== ENCOUNTER → 2025-05-09 | Outpatient (CLI) | payer MEDICAID, SELFPAY ==
[2025-05-09 10:23] LABS: Hematocrit 39.2 % (37-47); Hemoglobin 14.0 g/dL (12.0-15.0); Immature Granulocytes Count 0.030 X10^3/uL (0.0-0.0); Mean Corp Hgb Conc 35.7 g/dL (32-36); Mean Corpuscular Volume 88.3 fL (81-99); Mean Platelet Vol. 9.8 fl (6.2-12.0); NRBC Flagged by Analyzer 0 % (0-5); Platelet Count 271 K/mm3 (150-450); RBC Distribution Width CV 11.7 % (11.6-14.6); RBC Distribution Width SD 37.7 fl (35.1-43.9); Red Blood Count 4.44 M/mm3 (4.2-5.4); White Blood Count 8.3 K/mm3 (4.4-11.0)
[2025-05-09 12:47] LABS: AST(SGOT) 26 U/L (<=31); Alanine Aminotransfer ALT/SGPT 28 U/L (<=34); Albumin, Serum 4.4 g/dL (3.5-5.0); Alkaline Phosphatase 65 U/L (35-104); Anion Gap 10 (5-15); BUN 9 mg/dL (4-19); BUN/Creat Ratio 15.0 RATIO (10-20); Calcium,Total 9.1 mg/dL (7.6-11.0); Carbon Dioxide 24.9 mmol/L (21.0-32.0); Chloride 104 mmol/L (98-108); Globulin 2.6 g/dL (2.2-4.2); Glucose 108 mg/dL (70-99); Iron 164 ug/dL (50-170); Iron Binding Capacity,Total 355 ug/dL (250-450); Iron Binding Capacity,Unsat 191 ug/dL (228-428); Potassium 3.9 mmol/L (3.3-5.1); Vitamin D,25 Hydroxy 21.5 ng/mL (30-100)
[2025-05-10 12:08] LABS: Lyme Scn Total Ab w/Rflx Negative (Negative)
== END | disposition home or self-care (01) ==
LOC: MFPLAB 09:49
PROVIDERS: PCP Family Medicine; Visit Provider Family Medicine
DX: D64.9 Anemia, unspecified (principal); R68.89 Other general symptoms and signs
CPT/HCPCS: 36415; 80053; 82306; 83540; 83550; 84443; 85025; 86618